=== PATIENT | male | born 1955 | race Caucasian/White ===

== ENCOUNTER 2023-06-29 09:55 | Inpatient (IN) | payer MEDICARE, SELFPAY ==
--- NOTE | ~2023-06-29 | MR_ITS ---
EXAMINATION: MR cervical spine wo/w con DATE: 07/02/2023 08:21 INDICATION: Neck pain with movement. TECHNIQUE: Magnetic resonance imaging (MRI) of the cervical spine was performed without and with 19 m L MultiHance intravenous contrast. COMPARISON: None FINDINGS: There is 3 mm anterolisthesis of C3 on C4 and C4 on C5 and 2 mm anterolisthesis of C7 on T1 . There is a chronic compression fracture of T1 with 1/5 loss of height. There is an effusion of left C1-C2 facet joint. There is edema-like signal intensity and enhancement around the joint and involvi ng the C2 vertebral body. There is mildly decreased disc height at C2-C3, severely decreased disc hei ght at C3-C4, moderately decreased disc height at C5-C6 and C6-C7, and mildly decreased disc height a t C7-T1. The spinal cord signal intensity is normal. The following disc levels are specifically discu ssed: C2-C3: There is a central extrusion. There is mild bilateral uncovertebral joint osteoarthritis. Ther e is severe bilateral facet joint osteoarthritis. There is mild left neural foraminal stenosis. There is mild central canal stenosis. C3-C4: The disc does not extend beyond the endplate margin. There is severe bilateral uncovertebral j oint osteoarthritis. There is moderate bilateral facet joint osteoarthritis. There is moderate right and mild left neural foraminal stenosis. There is mild central canal stenosis. C4-C5: The disc does not extend beyond the endplate margin. There is mild bilateral uncovertebral suad nt osteoarthritis. There is moderate right and severe left facet joint osteoarthritis. There is mild right and moderate left neural foraminal stenosis. There is mild central canal stenosis. C5-C6: The disc is bulging. There is severe bilateral uncovertebral joint osteoarthritis. There is mi ld bilateral facet joint osteoarthritis. There is severe right and mild left neural foraminal stenosi s. There is mild central canal stenosis. C6-C7: The disc is bulging. There is severe bilateral uncovertebral joint osteoarthritis. There is mi ld bilateral facet joint osteoarthritis. There is mild right and moderate left neural foraminal steno sis. There is mild central canal stenosis. C7-T1: There is a central extrusion. There is mild left uncovertebral joint osteoarthritis. There is moderate right and severe left facet joint osteoarthritis. There is mild left neural foraminal stenos is. There is no central canal stenosis. IMPRESSION: 1. Effusion of left C1-C2 facet joint with abnormal bone marrow signal intensity and enhancement. The se findings are most likely secondary to osteoarthritis. Noncontrast cervical spine CT is recommended to exclude fracture or infection. Reviewed, dictated and finalized at location A. IMPRESSION: 1. Effusion of left C1-C2 facet joint with abnormal bone marrow signal intensit y and enhancement. These findings are most likely secondary to osteoarthritis. Noncontrast cervical spine CT is recommended to exclude fracture or infection.
--- NOTE | ~2023-06-29 | XR_ITS ---
EXAMINATION: XR foot RT min 3V DATE: 06/29/2023 11:43 INDICATION: Right foot pain and swelling TECHNIQUE: Dorsoplantar, lateral, and 2 oblique views of the right foot were obtained. COMPARISON: None. FINDINGS: There is lateral soft tissue swelling of the foot. Soft tissue gas is seen near the base of the fifth metatarsal. There appears to be mild osteopenia in the base of the fifth metatarsal. There is at least moderate osteoarthritis in the midfoot and multiple interphalangeal joints. There appear s to be chronic subluxation at the second proximal interphalangeal joint. Posterior and plantar calca annalee enthesophytes are noted. IMPRESSION: 1. Lateral soft tissue swelling the foot and soft tissue gas near the base of the fifth metatarsal. U nderlying osteopenia of the fifth metatarsal base could reflect osteomyelitis. Reviewed, dictated and finalized at location A. IMPRESSION: 1. Lateral soft tissue swelling the foot and soft tissue gas near the base of t he fifth metatarsal. Underlying osteopenia of the fifth metatarsal base could r eflect osteomyelitis.
--- NOTE | ~2023-06-29 | CT_ITS ---
CT of the Abdomen and Pelvis: Indication: Urinary bladder neoplasm Technique: 2.5 mm axial scans were obtained through the abdomen and pelvis prior to and following in travenous administration of 130 cc of Omnipaque 350. Dose reduction technique was used on this scan b y utilizing automated exposure control and iterative reconstruction technique. The dose-length produc t (DLP) was 2837.99 mGy-cm. Findings: Scans through the lung bases are unremarkable. The liver, spleen, pancreas, adrenals and kidneys are within normal limits. Cholecystectomy clips are present. No evidence of aortic aneurysm. No lymphadenopathy. No bowel obstruction or bowel wall thickening. There is no evidence to suggest acute appendicitis. Images through the pelvis were performed. Urinary bladder is unremarkable in appearance. No pelvic ma ss seen. No ascites. Impression: No evidence for urinary bladder neoplasm. No significant abnormality seen. Reviewed, dictated and finalized at [facility]. Impression: No evidence for urinary bladder neoplasm. No significant abnormality seen.
--- NOTE | ~2023-06-29 | CT_ITS ---
EXAMINATION: CT foot RT wo con DATE: 07/01/2023 15:16 INDICATION: Right hindfoot varus. TECHNIQUE: Computed tomography (CT) of the right foot was performed without intravenous contrast. Aut omated exposure control and iterative reconstruction technique were employed. The dose-length product was 475.34 mGy-cm. COMPARISON: Right foot radiographs 06/29/2023, MRI 06/30/2023 FINDINGS: Hindfoot varus is noted. There is dorsiflexion of the metatarsophalangeal joints and flexio n of the interphalangeal joints. There is an old healed fracture of neck of fifth metatarsal. There i s dorsal dislocation of fifth proximal phalanx with respect to the metatarsal with pseudoarthrosis. T here is severe osteoarthritis of the ankle joint, subtalar joint, talonavicular joint, and fifth tars ometatarsal joint. There is mild to moderate osteoarthritis of many other joints. There is an ulcer o verlying base of fifth metatarsal. There is mature periosteal reaction of base of fifth metatarsal wi thout bone marrow edema on the recent MRI to suggest acute osteomyelitis. IMPRESSION: 1. Hindfoot varus. 2. Particular osteoarthritis. 3. Dorsal dislocation of fifth proximal phalanx with respect to the metatarsal with pseudoarthrosis. Reviewed, dictated and finalized at location A.
--- NOTE | ~2023-06-29 | MR_ITS ---
MRI of the right foot CLINICAL HISTORY: Pain, osteomyelitis TECHNIQUE: Axial T1-weighted, T2 fat-sat, and T1 fat-sat images, sagittal T1-weighted and STIR images , and coronal T1-weighted and T2 fat-sat images were acquired. FINDINGS: Exam degraded by motion artifact. Bone marrow signals appear unremarkable. No evidence for osteitis. No fracture or bone marrow edema seen. No significant joint effusion identified. There are probable mild degenerative changes at the metatarsophalangeal joints and TMT joints. Plantar fascia appears intact. There is nonspecific edematous change of the plantar musculature of th e foot. No focal fluid collection seen. There is dorsal subcutaneous soft tissue edema of the foot. IMPRESSION: No evidence for osteomyelitis or abscess. Nonspecific dorsal subcutaneous soft tissue edema as well as myositis of the plantar musculature of t he foot. Reviewed, dictated and finalized at [facility]. IMPRESSION: No evidence for osteomyelitis or abscess. Nonspecific dorsal subcutaneous soft tissue edema as well as myositis of the pl nikki musculature of the foot.
[2023-06-29 10:16] VITALS: BP 110/74; PULSE 101; RESP 16; TEMP 36.6; O2SAT 96
--- NOTE | 2023-06-29 10:22 | ECG_ITS ---
Measurements Intervals [place] Rate: 100 P: 17 NE: 144 QRS: -18 QRSD: 85 T: 13 QT: 360 QTc: 465 Interpretive Statements SINUS TACHYCARDIA ATRIAL PREMATURE COMPLEX DELAYED PRECORDIAL R/S TRANSITION VOLTAGE CRITERIA FOR LVH BORDERLINE T WAVE ABNORMALITY- INFEIOR LEADS BASELINE ARTIFACT- I, III, AVL, AVF BORDERLINE ECG NO PREVIOUS ECG AVAILABLE FOR COMPARISON Electronically Signed On 06-29-2023 15:52:18 CDT by Silviano Peguero D.O.
--- NOTE | 2023-06-29 11:57 | ED.WOUNDLAC ---
HPI - Wound/Laceration General Chief Complaint: Wound/Laceration Stated Complaint: ulcer on right foot Time Seen by Provider: 06/29/23 11:56 History of Present Illness HPI narrative: Patient is a 67-year-old male with history of rheumatoid arthritis, on Rinvoq, CHF here with wound on right foot. Patient notes that about a week and half to 2 weeks ago he started noticing a wound on the right lateral aspect of his right foot. patient has been using a topical agents at home without improvement of symptoms. 2 days ago patient noticed some drainage from the wound. Patient did go and see his primary care doctor about this wound they advised to come into the emergency department for possible IV antibiotic need. Patient denies fever or chills. Does note some pain in the area. Uses multiple person assist at home to get around, has declined placement in a skilled nursing care facility in the past. Related Data Home Medications Medication Instructions Recorded Confirmed acetaminophen 325 mg tablet 650 mg PO Q4H PRN Mild Pain (Scale 06/29/23 06/29/23 (Tylenol) Score 1-4) aspirin 81 mg capsule,delayed 81 mg PO DAILY 06/29/23 06/29/23 release atorvastatin 20 mg tablet 20 mg PO HS 06/29/23 06/29/23 bupropion HCl 150 mg 24 hr tablet, 150 mg PO DAILY 06/29/23 06/29/23 extended release cetirizine 10 mg tablet 10 mg PO DAILY 06/29/23 06/29/23 citalopram 40 mg tablet 40 mg PO Q12H 06/29/23 06/29/23 ergocalciferol (vitamin D2) 25,000 50,000 unit PO WEEKLY 06/29/23 06/29/23 unit capsule fludrocortisone 0.1 mg tablet 0.2 mg PO DAILY 06/29/23 06/29/23 fluticasone fur. 100 mcg-umeclid 1 inh inhalation DAILY 06/29/23 06/29/23 62.5 mcg-vilant 25 mcg inhalat.powder (Trelegy Ellipta) folic acid 1 mg tablet 1 mg PO DAILY 06/29/23 06/29/23 furosemide 40 mg tablet 20 mg PO DAILY 06/29/23 06/29/23 hydrocortisone 5 mg tablet 5 mg PO BID 06/29/23 06/29/23 levothyroxine 175 mcg tablet 175 mcg PO DAILY 06/29/23 06/29/23 lifitegrast 5 % eye drops in a 1 drp EACH EYE BID 06/29/23 06/29/23 dropperette melatonin 5 mg tablet 5 mg PO HS 06/29/23 06/29/23 niacin 1,000 mg tablet,extended 1,000 mg PO HS 06/29/23 06/29/23 release 24 hr oxycodone-acetaminophen 5 mg-325 1 tablet PO Q6H PRN Pain 06/29/23 06/29/23 mg tablet pantoprazole 40 mg tablet,delayed 40 mg PO BID 06/29/23 06/29/23 release potassium chloride 20 mEq 20 meq PO DAILY 06/29/23 06/29/23 tablet,extended release prednisolone acetate 1 % eye 1 drp EACH EYE BID 06/29/23 06/29/23 drops,suspension pregabalin 100 mg capsule 100 mg PO TID 06/29/23 06/29/23 rivaroxaban 20 mg tablet (Xarelto) 20 mg PO 1700 06/29/23 06/29/23 sennosides 8.6 mg-docusate sodium 2 tablet PO Q12H 06/29/23 06/29/23 50 mg tablet tamsulosin 0.4 mg capsule 0.4 mg PO HS 06/29/23 06/29/23 tizanidine 4 mg tablet 4 mg PO BID 06/29/23 06/29/23 upadacitinib 15 mg tablet,extended 15 mg PO DAILY 06/29/23 06/29/23 release 24 hr (Rinvoq) Allergies Allergy/AdvReac Type Severity Reaction Status Date / Time No Known Allergies Allergy Verified 06/29/23 14:21 Review of Systems Review of Systems: CONSTITUTIONAL: Denies fever, chills, or sweats. CARDIOVASCULAR: Denies chest pain RESPIRATORY: Denies cough or dyspnea. GASTROINTESTINAL: Denies abdominal pain, nausea, vomiting SKIN: Denies rash or itching. Wound on right foot. MUSCULOSKELETAL: Denies back pain, joint pain, or myalgia. Right foot pain NEUROLOGIC: Denies headache, numbness, or weakness. PSYCHIATRIC: Denies anxiety or depression. [facility] Past Medical History Medical History (Updated 06/29/23 @ 18:53 by Gerri Hough APRN) CHF (congestive heart failure) CKD (chronic kidney disease) COPD (chronic obstructive pulmonary disease) DVT (deep venous thrombosis) LLE Hypothyroidism Rheumatoid arthritis Right club foot Family History Family History (Updated 06/29/23 @ 16:48 by Maria Eugenia Matthews RN) Mother High cholesterol Hypertension S
[2023-06-29 12:12] LABS: Basophils Percent Auto 0.4 % (0.2-1.2); Eosinophils Absolute Auto 0.1 K/mm3 (0-0.3); Eosinophils Percent Auto 1.6 % (0-4.4); Hematocrit 38.6 % (42.0-52.0); Hemoglobin 11.9 g/dL (14.0-18.0); Immature Granulocyte Absolute 0.03 K/mm3 (0.00-0.031); Immature Granulocyte Percent A 0.4 % (0-0.5); Lymphocytes Absolute Auto 2.36 K/mm3 (0.9-3.2); Lymphocytes Percent Auto 32.1 % (18.3-44.2); Mean Corpuscular HGB Conc 30.8 g/dl (32-36); Mean Corpuscular Hemoglobin 30.1 pg (26-34); Mean Corpuscular Volume 97.5 fl (80-100); Monocytes Absolute Auto 0.8 K/mm3 (0.1-0.6); Monocytes Percent Auto 10.6 % (2.6-8.5); Neutrophils Percent Auto 54.9 % (45.5-73.1); Platelet Count Result 319 k/mm3 (150-375); Red Blood Count 3.96 M/mm3 (4.6-6.20); Red Cell Distribution Width 19.7 % (11.5-14.5); White Blood Count 7.4 K/mm3 (4.5-10.0)
[2023-06-29 12:22] LABS: Alanine Aminotransferase 27 U/L (6-50); Albumin Level 3.7 g/dL (3.5-5.1); Alkaline Phosphatase 134 U/L (38-126); Anion Gap 3 mmol/L (8-16); Aspartate Amino Transferase 37 U/L (17-59); Bilirubin,Total 0.6 mg/dL (0.2-1.3); Blood Urea Nitrogen 15 mg/dL (9-20); Calcium 9.1 mg/dL (8.4-10.2); Carbon Dioxide 34 mmol/L (22-30); Chloride 99 mmol/L (98-107); Estimated CRCL calculation 71 ml/min; Estimated Glomerular Filt Rate > 60; Glucose 94 mg/dL (65-110); Potassium 3.6 mmol/L (3.4-5.0); Sodium 136 mmol/L (137-145)
[2023-06-29 13:02] LABS: CRP 1.2 mg/dL (<1.0)
[2023-06-29 13:46] LABS: Erythrocyte Sedimentation Rate 49 mm/hr (0-20)
[2023-06-29] MEDS: cefTRIAXone 2 GM/NS 100 ML 2 GM/100 ML BAG IVPB (14:23)
[2023-06-29 14:54] LABS: NT Pro B Type Natriuretic Pept 217 pg/mL (19.9-100)
[2023-06-29] MEDS: VANCOMYCIN 1,250 MG/NS 250 ML 1,250 MG/250 ML BAG 166.67 MG IVPB (15:06)
[2023-06-29 15:57] VITALS: BP 110/81; PULSE 95; RESP 18; O2SAT 100
--- NOTE | 2023-06-29 16:03 | PM.IMHP ---
H&P: HPI History of Present Illness Date/Time: 06/29/23 16:03 Chief Complaint: Wound, R Foot Narrative: 67 y/o M with history of rheumatoid arthritis, CKD Stage 3, CHF, COPD, hypothyroidism, GI bleed, and DVT of LLE w/anti-coagulation. Patient presents here with small wound to R lateral forefoot. Patient reports purulent discharge from wound, erythema, swelling, and pain. 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 Unable to wear brace due to the swelling. Wound began developing around 06/18 while patient was being treated at [facility] for rehabilitation post-admission for a GI bleed. Discharged from [facility] on 06/22. Patient has been dressing wound with band-aid at home. Sought care with PCP who recommended eval/tx in ED. Patient denies fever, chills, nausea, vomiting or diarrhea. Most recent BM yesterday, normal color, and +constipation. Family at bedside also reported a recent abnormal bladder scan c/f neoplasm as well as abnormal imaging of patient's C1/C2. Since discharge home, patient has been experiencing urge incontinence. Patient also continues to have pain to his left lateral neck with head turn to the left. Review of Systems Review of Systems: All systems reviewed & are unremarkable except as noted in HPI and below PMFSH Past Medical History Medical History (Updated 06/29/23 @ 18:53 by Gerri Hough APRN) CHF (congestive heart failure) CKD (chronic kidney disease) COPD (chronic obstructive pulmonary disease) DVT (deep venous thrombosis) LLE Hypothyroidism Rheumatoid arthritis Right club foot Family History Family History (Updated 06/29/23 @ 16:48 by Maria Eugenia Matthews RN) Mother High cholesterol Hypertension Sibling High cholesterol Social History Social History Smoking packs per day: 1.5 Smoking cigarettes per day: 30.0 Smoking status: Former smoker Smoking end date: 01/26/22 Alcohol intake: never Substance use: never Lack of Transportation: No Lack of Food: Never True Current Housing: I Have Housing Concerned About Future Housing: No Difficulty Paying Gas/Electric Bills: No Difficulty Paying for Meds: No Currently Unemployed: No Education: High School Diploma/GED Difficulty w/ Childcare or Family Care: No Spiritual care concerns: No Meds Home Medications and Allergies Home Medications Medication Instructions Recorded Confirmed Type acetaminophen 325 mg tablet 650 mg PO Q4H PRN Mild Pain (Scale 06/29/23 06/29/23 History (Tylenol) Score 1-4) aspirin 81 mg capsule,delayed 81 mg PO DAILY 06/29/23 06/29/23 History release atorvastatin 20 mg tablet 20 mg PO HS 06/29/23 06/29/23 History bupropion HCl 150 mg 24 hr tablet, 150 mg PO DAILY 06/29/23 06/29/23 History extended release cetirizine 10 mg tablet 10 mg PO DAILY 06/29/23 06/29/23 History citalopram 40 mg tablet 40 mg PO Q12H 06/29/23 06/29/23 History ergocalciferol (vitamin D2) 25,000 50,000 unit PO WEEKLY 06/29/23 06/29/23 History unit capsule fludrocortisone 0.1 mg tablet 0.2 mg PO DAILY 06/29/23 06/29/23 History fluticasone fur. 100 mcg-umeclid 1 inh inhalation DAILY 06/29/23 06/29/23 History 62.5 mcg-vilant 25 mcg inhalat.powder (Trelegy Ellipta) folic acid 1 mg tablet 1 mg PO DAILY 06/29/23 06/29/23 History furosemide 40 mg tablet 20 mg PO DAILY 06/29/23 06/29/23 History hydrocortisone 5 mg tablet 5 mg PO BID 06/29/23 06/29/23 History levothyroxine 175 mcg tablet 175 mcg PO DAILY 06/29/23 06/29/23 History lifitegrast 5 % eye drops in a 1 drp EACH EYE BID 06/29/23 06/29/23 History dropperette melatonin 5 mg tablet 5 mg PO HS 06/29/23 06/29/23 History niacin 1,000 mg tablet,extended 1,000 mg PO HS 06/29/23 06/29/23 History release 24 hr oxycodone-acetaminophen 5 mg-325 1 tablet PO Q6H PRN Pain 06/29/23 06/29/23 History mg tablet pantoprazole 40 mg tablet,delayed 40 mg PO BID 06/29/23 06/29/23 History release potassium chloride 20
--- NOTE | 2023-06-29 16:14 | ADMGEN ---
This patient, Obie Greenwood, was admitted to 3 [facility] Surg Room 310-01. Patient/family oriented to hospital policies and general routines including ID bracelet, bed and alarms, visiting hours, pain management, procedures, bathroom and other care routines, personal items, smoking policy, room service/diet, and visiting hours. Information on how to activate the Rapid Response Team has been discussed. Patient/Family are encouraged to report perceived risks to care and to ask questions if they do not understand what they are told or what they should do.
[2023-06-29] MEDS: VANCOMYCIN 1,000 MG/NS 250 ML 1,000 MG/250 ML BAG 250 MG IVPB (16:50)
[2023-06-29 16:54] VITALS: BP 124/83; PULSE 87; RESP 16; TEMP 36.3; O2SAT 100
[2023-06-29] MEDS: PIPERACILLN/TAZ 3.375GM/NS50ML 3.375 GM/50 ML BAG IVPB (21:45)
[2023-06-29] MEDS: ATORVASTATIN 20 MG TABLET PO (21:45)
[2023-06-29] MEDS: CITALOPRAM HYDROBROMIDE 20 MG TABLET 40 MG PO (21:46)
[2023-06-29] MEDS: SENNA/DOCUSATE SODIUM TABLET 2 TAB PO (21:46)
[2023-06-29] MEDS: MELATONIN 5 MG TABLET PO (21:46)
[2023-06-29] MEDS: PANTOPRAZOLE 40 MG TABLET PO (21:46)
[2023-06-29] MEDS: TAMSULOSIN HCL 0.4 MG CAPSULE PO (21:46)
[2023-06-29] MEDS: NIACIN SA 500 MG TABLET 1000 MG PO (21:51)
[2023-06-29 22:00] VITALS: BP 114/71; PULSE 98; RESP 14; TEMP 36.5; O2SAT 92
[2023-06-30] MEDS: PIPERACILLN/TAZ 3.375GM/NS50ML 3.375 GM/50 ML BAG IVPB ×5 (00:05→23:37)
[2023-06-30 05:39] VITALS: BP 103/62; PULSE 96; RESP 13; TEMP 36.4; O2SAT 92
--- NOTE | 2023-06-30 07:43 | PM.IMPN ---
Progress Note: A&P Assessment and Plan (1) Wound of right foot: Code(s): S91.301A - Unspecified open wound, right foot, initial encounter Status: Acute Assessment and Plan: (2) Urge incontinence: Code(s): N39.41 - Urge incontinence Status: Acute (3) CHF (congestive heart failure): Code(s): I50.9 - Heart failure, unspecified Status: Acute (4) Anemia: Code(s): D64.9 - Anemia, unspecified Status: Acute (5) Osteomyelitis of right foot: Code(s): M86.9 - Osteomyelitis, unspecified Status: Acute Plan Osteomyelitis of right foot Wound of right foot: ? <1 cm wound to right lateral forefoot that developed around 06/18. X-Ray concerning for osteomyelitis. patient does not meet SIRS criteria, podiatry not available, unable to transfer to outside facility due to avilabilty of room. Dr. Levy graciously accepted to consult for possible procedures. -MRI of R foot -continue broad spectrum antibiotics Vancomycin 1,500 mg Q18H, troughs ordered, with Zosyn 3.375 G Q6H, consult pharmacist for dosing antibiotics -wound culture -monitor daily labs -ortho consult - Cam, no need of surgical treatment per orthopedic surgeon Urge incontinence: ?Code(s): N39.41 - Urge incontinence ?Status:?Acute ?Assessment and Plan: New urge incontinence for the last week. History of BPH, on tamsulosin. Reported abnormal bladder scan concerning for neoplasm. -continue BPH medications Follow-up CT abdomen pelvis with contrast Follow-up urinalysis ?Heart failure, unspecified ?Status:?Acute ?Assessment and Plan: Bilateral peripheral edema, crackles in R lung base. Patient breathing comfortably, no increased SOB. -BNP 217 -continue furosemide, ASA -monitor I/O -monitor for changes in SOB, changes in physical exam Follow echocardiogram Anemia Likely secondary to chronic inflammation, patient has rheumatoid arthritis No obvious bleeding Follow-up CBC -Rheumatoid Arthritis: continue Rinvoq (home dose needed), pregabalin, hydrocortisone PO, Percocet, tizanidine, folic acid. -Hypothyroidism: continue Synthroid -COPD: no active wheezing or SOB. Continue home albuterol neb/rescue inhaler, Trelegy Ellipta. -HLD: continue atorvastatin, niacin -DVT: hold Xarelto for possible procedures/I&D -Allergies: continue cetirizine -Constipation: continue home senna plus -Depression: continue bupropion and citalopram. Denied SI/HI. -Adrenal Insufficiency: fludrocortisone 0.1 mg, prednisolone -Additional Home Meds: continue melatonin, potassium, vitamin D. No signs of exacerbation. home lubricant eye drop not available. Diet: Regular, NPO at midnight. DVT Prophylaxis: Hold Xarelto for procedures. SCDs ordered. GI Prophylaxis: continue home pantoprazole Code Status DNR Living Will in place JOSIE Greenwood (brother) [phone] Disposition: IV antibiotics, ortho consult, wound culture. Subjective Date/time seen: 06/30/23 07:43 Interval history: Patient is feeling better, patient is afebrile, blood pressure stable labs reviewed no new issue or events over the night Exam Narrative: GENERAL: Pleasant, in no acute distress. Well-nourished. - EYES: EOMI. Anicteric. - HENT: Moist mucous membranes. - LUNGS: Clear to auscultation bilaterally, no wheezing, rhonchi, or rales. - CARDIOVASCULAR: Regular rate and rhythm. No murmur. No JVD. - ABDOMEN: Soft, non-tender and non-distended. No palpable masses. - EXTREMITIES: No edema. Peripheral pulses 2+. Non-tender. - NEUROLOGIC: No focal neurological deficits. CN II-XII grossly intact. - PSYCHIATRIC: Awake, Alert and oriented x 3. Appropriate mood and affect. - SKIN: open wound to the right lateral foot, no active drainage. Erythema to anterior RLE with small healing wounds. - LYMPH: No cervical lymphadenopathy. Objective Data Vital Signs Vital Signs: Vital Signs - 24 hr 06/29/23 10:16
[2023-06-30 08:11] LABS: Basophils Percent Auto 0.4 % (0.2-1.2); Eosinophils Absolute Auto 0.2 K/mm3 (0-0.3); Eosinophils Percent Auto 2.3 % (0-4.4); Hematocrit 35.4 % (42.0-52.0); Immature Granulocyte Absolute 0.02 K/mm3 (0.00-0.031); Immature Granulocyte Percent A 0.3 % (0-0.5); Lymphocytes Absolute Auto 1.93 K/mm3 (0.9-3.2); Lymphocytes Percent Auto 24.6 % (18.3-44.2); Mean Corpuscular HGB Conc 31.1 g/dl (32-36); Mean Corpuscular Hemoglobin 30.5 pg (26-34); Mean Corpuscular Volume 98.1 fl (80-100); Mean Platelet Volume 9.7 fl (7.4-10.4); Monocytes Absolute Auto 0.8 K/mm3 (0.1-0.6); Monocytes Percent Auto 9.9 % (2.6-8.5); Neutrophils Absolute Auto 4.9 K/mm3 (1.3-6.7); Neutrophils Percent Auto 62.5 % (45.5-73.1); Platelet Count Result 297 k/mm3 (150-375); Red Blood Count 3.61 M/mm3 (4.6-6.20); Red Cell Distribution Width 19.7 % (11.5-14.5); White Blood Count 7.9 K/mm3 (4.5-10.0)
[2023-06-30 08:24] LABS: Anion Gap 7 mmol/L (8-16); Blood Urea Nitrogen 16 mg/dL (9-20); Calcium 8.9 mg/dL (8.4-10.2); Carbon Dioxide 29 mmol/L (22-30); Chloride 102 mmol/L (98-107); Estimated CRCL calculation 65 ml/min; Estimated Glomerular Filt Rate > 60; Glucose 77 mg/dL (65-110); Lactic Acid Reflex 1.3 mmol/L (0.7-2.0); Magnesium 2.1 mg/dL (1.6-2.3); Potassium 3.4 mmol/L (3.4-5.0); Sodium 138 mmol/L (137-145)
[2023-06-30] MEDS: FLUTICASONE/UMECLIDIN/VILANTER 100-62.5-25 MCG ELLIPTA 1 PUFF INHALATION (08:46)
[2023-06-30 08:48] VITALS: O2SAT 95
[2023-06-30 08:49] VITALS: RESP 18
[2023-06-30 09:16] LABS: Thyroid Stimulating Hormone Reflex < 0.015 uIU/mL (0.465-4.68)
[2023-06-30] MEDS: PREGABALIN (*CRX) 50 MG CAPSULE 100 MG PO ×3 (09:17→17:31)
[2023-06-30] MEDS: SENNA/DOCUSATE SODIUM TABLET 2 TAB PO ×2 (09:18→20:40)
[2023-06-30] MEDS: FLUDROCORTISONE ACETATE 0.1 MG TABLET 0.2 MG PO (09:18)
[2023-06-30] MEDS: LEVOTHYROXINE SODIUM 75 MCG TABLET PO (09:18)
[2023-06-30] MEDS: CITALOPRAM HYDROBROMIDE 20 MG TABLET 40 MG PO ×2 (09:18→20:40)
[2023-06-30] MEDS: FOLIC ACID 1 MG TABLET PO (09:18)
[2023-06-30] MEDS: buPROPion HCL XL (24 HR) 150 MG TABCR PO (09:18)
[2023-06-30] MEDS: HYDROCORTISONE 5 MG TABLET PO ×2 (09:18→17:31)
[2023-06-30] MEDS: ASPIRIN 81 MG ENTERIC TABLET PO (09:18)
[2023-06-30] MEDS: prednisoLONE ACETATE 1% OPHTH 5 ML 1 DROP EACH EYE ×2 (09:18→17:31)
[2023-06-30] MEDS: POTASSIUM CHLORIDE 20 MEQ ER TABLET PO (09:18)
[2023-06-30] MEDS: PANTOPRAZOLE 40 MG TABLET PO ×2 (09:19→20:40)
[2023-06-30] MEDS: LORATADINE 10 MG TABLET PO (09:19)
[2023-06-30] MEDS: TIZANIDINE HCL 4 MG TABLET PO ×2 (09:19→17:31)
[2023-06-30] MEDS: LEVOTHYROXINE SODIUM 100 MCG TABLET PO (09:19)
[2023-06-30] MEDS: FUROSEMIDE 20 MG TABLET PO (09:19)
--- NOTE | 2023-06-30 11:33 | PM.CNOR ---
Assessment and Plan Assessment and plan (1) Rheumatoid arthritis: Qualifiers: Rheumatoid arthritis location: multiple sites Rheumatoid factor presence: with rheumatoid factor Qualified Code(s): M05.79 - Rheumatoid arthritis with rheumatoid factor of multiple sites without organ or systems involvement Code(s): M06.9 - Rheumatoid arthritis, unspecified Status: Acute (2) Ulcer of right foot with muscle involvement without evidence of necrosis: Code(s): L97.515 - Non-pressure chronic ulcer of other part of right foot with muscle involvement without evidence of necrosis Status: Acute Assessment and Plan: 67-year-old gentleman admitted through the emergency room with peripheral neuropathy secondary to rheumatoid arthritis. 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 Small ulcer at the base of the 5th metatarsal. Start dressing changes, IV antibiotics. Plan for MRI today. At this time does not require surgical treatment but may develop into surgical candidate based on MRI and progress of wound with dressing changes. Pressure relief while in bed. Will follow. (3) Peripheral neuropathy: Qualifiers: Peripheral neuropathy type: polyneuropathy associated with underlying disease Qualified Code(s): G63 - Polyneuropathy in diseases classified elsewhere Code(s): G62.9 - Polyneuropathy, unspecified Status: Acute (4) Cavovarus deformity of foot, acquired: Qualifiers: Laterality: right Qualified Code(s): M21.6X1 - Other acquired deformities of right foot Code(s): M21.6X9 - Other acquired deformities of unspecified foot Status: Acute History of Present Illness HPI Consult date: 06/30/23 Requesting physician: Jennifer Perdomo MD Chief complaint: Foot Wound Infection Narrative: 67-year-old gentleman admitted through the emergency room with right foot ulcer. Patient with history of rheumatoid arthritis and neuropathy. Per history noted ulcer lateral border the right foot 1-2 weeks ago. Family had difficulty with care and brought him to the emergency room. Review of Systems Constitutional: Constitutional: Denies fever(s) Eyes: Eyes: Denies blurry vision ENT: Reports Normal hearing present Cardiovascular: Cardiovascular: Denies chest pain and Denies dyspnea Respiratory: Respiratory: Denies dyspnea and Denies wheezing Gastrointestinal: Gastrointestinal: Denies abdominal pain Genitourinary: Genitourinary: Denies urinary urgency Musculoskeletal: Musculoskeletal: Reports as per HPI and Denies numbness Integumentary/Breasts: Skin/Breast: Denies changing lesions and Denies sores Neurologic: Reports Normal hearing present, Denies behavioral changes, Denies confusion, Denies numbness and Denies convulsions Psychiatric: Psychiatric: Denies behavioral changes, Denies confusion and Denies hallucinations Endocrine: Endocrine: Denies heat intolerance Hematologic/Lymphatic: Hematologic/Lymphatic: Denies easy bleeding Allergic/Immunologic: Allergic/Immunologic: Denies wheezing [facility] Past Medical History Medical History (Updated 06/30/23 @ 11:38 by Yandel Levy MD) Cavovarus deformity of foot, acquired CHF (congestive heart failure) CKD (chronic kidney disease) COPD (chronic obstructive pulmonary disease) DVT (deep venous thrombosis) LLE Hypothyroidism Peripheral neuropathy Rheumatoid arthritis Right club foot Ulcer of right foot with muscle involvement without evidence of necrosis Family History Family History (Updated 06/29/23 @ 16:48 by Maria Eugenia Matthews RN) Mother High cholesterol Hypertension Sibling High cholesterol Social History Social History Smoking packs per day: 1.5 Smoking cigarettes per day: 30.0 Smoking status: Former smoker Smoking end date: 01/26/22 Alcohol intake: never Substance use: never Lack of Transportation: No
[2023-06-30 14:00] VITALS: BP 100/65; PULSE 69; RESP 14; TEMP 36.4; O2SAT 96
[2023-06-30 18:16] LABS: Appearance Urine Clear (Clear); Bilirubin Urine Negative (Negative); Blood Urine Negative (Negative); Color Urine Yellow (Yellow); Glucose Urine UA Negative (Negative); Ketones Urine Negative (Negative); Leukocyte Esterase Ur Negative LEU/UL (Negative); Nitrate Urine Negative (Negative); Protein Urine Negative (Negative); pH Urine 7.5 (5.0-9.0)
[2023-06-30 18:33] LABS: Specific Grav Ur 1.045 (1.001-1.035)
[2023-06-30 18:35] LABS: Add Urine Microscopic? NO
[2023-06-30] MEDS: ATORVASTATIN 20 MG TABLET PO (20:40)
[2023-06-30] MEDS: NIACIN SA 500 MG TABLET 1000 MG PO (20:40)
[2023-06-30] MEDS: TAMSULOSIN HCL 0.4 MG CAPSULE PO (20:40)
[2023-06-30] MEDS: MELATONIN 5 MG TABLET PO (20:40)
[2023-06-30 21:00] VITALS: BP 97/68; PULSE 64; RESP 16; TEMP 36.1; O2SAT 94
[2023-07-01 01:46] LABS: Estimated CRCL calculation 65 ml/min; Estimated Glomerular Filt Rate > 60
[2023-07-01 04:23] VITALS: BP 110/64; PULSE 91; RESP 16; TEMP 36.2; O2SAT 93
[2023-07-01] MEDS: PIPERACILLN/TAZ 3.375GM/NS50ML 3.375 GM/50 ML BAG IVPB ×3 (05:10→17:38)
[2023-07-01 07:09] LABS: Basophils Percent Auto 0.3 % (0.2-1.2); Eosinophils Absolute Auto 0.2 K/mm3 (0-0.3); Eosinophils Percent Auto 2.6 % (0-4.4); Hematocrit 32.3 % (42.0-52.0); Immature Granulocyte Absolute 0.02 K/mm3 (0.00-0.031); Immature Granulocyte Percent A 0.3 % (0-0.5); Lymphocytes Absolute Auto 1.65 K/mm3 (0.9-3.2); Lymphocytes Percent Auto 22.4 % (18.3-44.2); Mean Corpuscular Hemoglobin 30.1 pg (26-34); Mean Corpuscular Volume 97.3 fl (80-100); Mean Platelet Volume 10.5 fl (7.4-10.4); Monocytes Absolute Auto 0.9 K/mm3 (0.1-0.6); Monocytes Percent Auto 11.8 % (2.6-8.5); Neutrophils Absolute Auto 4.6 K/mm3 (1.3-6.7); Neutrophils Percent Auto 62.6 % (45.5-73.1); Platelet Count Result 260 k/mm3 (150-375); Red Blood Count 3.32 M/mm3 (4.6-6.20); Red Cell Distribution Width 19.7 % (11.5-14.5); White Blood Count 7.4 K/mm3 (4.5-10.0)
[2023-07-01 07:37] LABS: Anion Gap 7 mmol/L (8-16); Blood Urea Nitrogen 12 mg/dL (9-20); Calcium 8.3 mg/dL (8.4-10.2); Carbon Dioxide 28 mmol/L (22-30); Chloride 103 mmol/L (98-107); Estimated CRCL calculation 65 ml/min; Estimated Glomerular Filt Rate > 60; Glucose 46 mg/dL (65-110); Potassium 2.8 mmol/L (3.4-5.0); Sodium 138 mmol/L (137-145)
[2023-07-01 07:46] LABS: Glucose Point of Care 55 mg/dl (65-105)
--- NOTE | 2023-07-01 07:50 | ECHO_ITS ---
Patient Info Name: Obie Greenwood Age: 67 years : 1955 Gender: Male Ht: 68 in Wt: 203 lbs BSA: 2.13 m2 HR: 91 bpm BP: 110 / 64 mmHg Heart Rhythm: Sinus Rhythm Technical Quality: Fair Exam Date: 07/01/2023 11:46 AM Exam Location: [facility] Patient Status: Inpatient Admit Date: 06/30/2023 Staff Ordering Physician: Iraj Sanchez MD Drama Teacher: Lucille Zelaya RDCS Attending Provider: Iraj Sanchez MD Exam Type: CA echo dop color flow w con Study Info Indications - dizziness Complete two-dimensional, color flow and Doppler transthoracic echocardiogram is performed with contrast to opacify the left ventricle and to improve the deliniation of the left ventricle endocardial borders. Contrast/Agitated Saline Contrast/Ag. Saline: Definity Amount: 2.00 ml Administered By: Lucille Zelaya RDCS Existing IV Access: Yes IV Access Condition: patent with no signs of infiltration Summary 1. Left ventricular chamber dimension is normal. 2. Left ventricular systolic function is normal, estimated at 65-70%. 3. There is mildly increased left ventricular wall thickness. 4. Right ventricular systolic function is normal. 5. There is moderate aortic valve calcification. 6. There is mild to moderate aortic valve stenosis with a peak velocity of 224.52 cm/s, mean gradient of 11 mmHg, and aortic valve area of 1.33 cm2. 7. There is mild tricuspid valve regurgitation. 8. There is small anterior pericardial effusion. Left Ventricle Left ventricular chamber dimension is normal. Left ventricular systolic function is normal, estimated at 65-70%. There is mildly increased left ventricular wall thickness. Right Ventricle Right ventricular chamber dimension is mildly enlarged. Right ventricular systolic function is normal. Left Atria Left atrial chamber dimension is normal. Right Atria Right atrial chamber dimension is normal. Atrial Septum Intact interatrial septum visualized by color flow imaging. Aortic Valve The aortic valve is not well visualized. There is mild to moderate aortic valve stenosis with a peak velocity of 224.52 cm/s, mean gradient of 11 mmHg, and aortic valve area of 1.33 cm2. There is no aortic valve regurgitation. There is moderate aortic valve calcification. Pulmonic Valve The pulmonic valve is not well visualized. Mitral Valve There is trace mitral valve regurgitation. The mitral valve annulus is mildly calcified. Tricuspid Valve There is mild tricuspid valve regurgitation. Pericardium/Pleural There is small anterior pericardial effusion. Inferior Vena Cava Normal inferior vena cava with >50% collapse upon inspiration consistent with normal right atrial pressure, 3 mmHg. Aorta The aortic root size at the sinus of Valsalva is normal. Left Ventricular Outflow Tract Name Value Normal LVOT 2D LVOT Diameter 2.01 cm LVOT Doppler LVOT Peak Gradient 4 mmHg LVOT Mean Gradient 2 mmHg LVOT VTI 18.93 cm LVOT VTI/AV VTI Ratio 0.42 LVOT Stroke Volume 60.30 ml LVOT CO
--- NOTE | 2023-07-01 08:01 | PM.IMPN ---
Progress Note: A&P Assessment and Plan (1) Wound of right foot: Code(s): S91.301A - Unspecified open wound, right foot, initial encounter Status: Acute Assessment and Plan: (2) Urge incontinence: Code(s): N39.41 - Urge incontinence Status: Acute (3) CHF (congestive heart failure): Code(s): I50.9 - Heart failure, unspecified Status: Acute (4) Anemia: Code(s): D64.9 - Anemia, unspecified Status: Acute (5) Osteomyelitis of right foot: Code(s): M86.9 - Osteomyelitis, unspecified Status: Acute Plan Cellulitis and suspecting osteomyelitis of right foot Wound of right foot: ? <1 cm wound to right lateral forefoot that developed around 06/18. X-Ray concerning for osteomyelitis. patient does not meet SIRS criteria, podiatry not available, unable to transfer to outside facility due to avilabilty of room. MRI of foot report No evidence for osteomyelitis or abscess.Nonspecific dorsal subcutaneous soft tissue edema as well as myositis of the plantar musculature of the foot. continue broad spectrum antibiotics: vancomycin 1,500 mg Q18H, troughs ordered, with Zosyn 3.375 G Q6H, consult pharmacist for dosing antibiotics -wound culture pending -monitor daily labs -ortho consult - Gre[place], no need of surgical treatment per orthopedic surgeon Urge incontinence: ?Code(s): N39.41 - Urge incontinence ?Status:?Acute ?Assessment and Plan: New urge incontinence for the last week. History of BPH, on tamsulosin. Reported abnormal bladder scan concerning for neoplasm. -continue BPH medications Follow-up CT abdomen pelvis with contrast: No evidence for urinary bladder neoplasm. No significant abnormality seen. urinalysis unremarkable Cancel consultation request of urologist ?Heart failure, unspecified ?Status:?Acute ?Assessment and Plan: Bilateral peripheral edema, crackles in R lung base. Patient breathing comfortably, no increased SOB. -BNP 217 -continue furosemide, ASA -monitor I/O -monitor for changes in SOB, changes in physical exam Follow echocardiogram Anemia Likely secondary to chronic inflammation, patient has rheumatoid arthritis No obvious bleeding Follow-up CBC Hypokalemia 2.8 potassium level Replete with potassium chloride 40 mEq p.o. and 20 mEq IV Follow-up BMP -Rheumatoid Arthritis: continue Rinvoq (home dose needed), pregabalin, hydrocortisone PO, Percocet, tizanidine, folic acid. -Hypothyroidism: continue Synthroid -COPD: no active wheezing or SOB. Continue home albuterol neb/rescue inhaler, Trelegy Ellipta. -HLD: continue atorvastatin, niacin -DVT: hold Xarelto for possible procedures/I&D -Allergies: continue cetirizine -Constipation: continue home senna plus -Depression: continue bupropion and citalopram. Denied SI/HI. -Adrenal Insufficiency: fludrocortisone 0.1 mg, prednisolone -Additional Home Meds: continue melatonin, potassium, vitamin D. No signs of exacerbation. home lubricant eye drop not available. Neck pain Patient has some neck pain with movement. No focal motor deficit or abnormal sensation Patient states that should remember with tumor was identified on CT scan of his cervical spine Order MRI of cervical spine with contrast for evaluation Diet: Regular, NPO at midnight. DVT Prophylaxis: Hold Xarelto for procedures. SCDs ordered. GI Prophylaxis: continue home pantoprazole Code Status DNR Living Will in place JOSIE Greenwood (brother) [phone] Disposition: IV antibiotics, ortho consult, wound culture. Subjective Date/time seen: 07/01/23 08:01 Interval history: Patient is feeling better, patient is afebrile, blood pressure stable labs reviewed, patient complains some neck pain, worse with movement, no new focal deficit Exam Narrative: GENERAL: Pleasant, in no acute distress. Well-nourished. - EYES: EOMI. Anicteric. - HENT: Moist mucous membranes. No tenderness of cer
[2023-07-01] MEDS: SENNA/DOCUSATE SODIUM TABLET 2 TAB PO ×2 (08:16→22:30)
[2023-07-01] MEDS: POTASSIUM CHLORIDE 20 MEQ PACKET (FOR LIQUID) 40 MEQ PO (08:16)
[2023-07-01] MEDS: prednisoLONE ACETATE 1% OPHTH 5 ML 1 DROP EACH EYE ×2 (08:16→17:39)
[2023-07-01] MEDS: FLUDROCORTISONE ACETATE 0.1 MG TABLET 0.2 MG PO (08:17)
[2023-07-01] MEDS: FUROSEMIDE 20 MG TABLET PO (08:17)
[2023-07-01] MEDS: buPROPion HCL XL (24 HR) 150 MG TABCR PO (08:17)
[2023-07-01] MEDS: PANTOPRAZOLE 40 MG TABLET PO ×2 (08:17→22:31)
[2023-07-01] MEDS: ASPIRIN 81 MG ENTERIC TABLET PO (08:17)
[2023-07-01] MEDS: LORATADINE 10 MG TABLET PO (08:17)
[2023-07-01] MEDS: FOLIC ACID 1 MG TABLET PO (08:17)
[2023-07-01] MEDS: PREGABALIN (*CRX) 50 MG CAPSULE 100 MG PO ×3 (08:17→17:39)
[2023-07-01] MEDS: TIZANIDINE HCL 4 MG TABLET PO ×2 (08:17→17:39)
[2023-07-01] MEDS: HYDROCORTISONE 5 MG TABLET PO ×2 (08:17→17:39)
[2023-07-01] MEDS: CITALOPRAM HYDROBROMIDE 20 MG TABLET 40 MG PO ×2 (08:17→22:30)
[2023-07-01] MEDS: LEVOTHYROXINE SODIUM 100 MCG TABLET PO (08:17)
[2023-07-01] MEDS: LEVOTHYROXINE SODIUM 75 MCG TABLET PO (08:18)
[2023-07-01] MEDS: KCL 20 MEQ/SW 100 ML 100 ML 50 MEQ IVPB (09:18)
[2023-07-01 09:34] LABS: Glucose Point of Care 128 mg/dl (65-105)
[2023-07-01] MEDS: FLUTICASONE/UMECLIDIN/VILANTER 100-62.5-25 MCG ELLIPTA 1 PUFF INHALATION (09:40)
--- NOTE | 2023-07-01 11:33 | PM.PNORT ---
Progress Note: A&P Assessment and Plan (1) Ulcer of right foot with muscle involvement without evidence of necrosis: Code(s): L97.515 - Non-pressure chronic ulcer of other part of right foot with muscle involvement without evidence of necrosis Status: Acute Assessment and Plan: MRI shows no bone involvement. Continue with silver gel and dressing changes. Wound care assessment tomorrow for possible further intervention. Continue IV antibiotics. (2) Cavovarus deformity of foot, acquired: Qualifiers: Laterality: right Qualified Code(s): M21.6X1 - Other acquired deformities of right foot Code(s): M21.6X9 - Other acquired deformities of unspecified foot Status: Acute Assessment and Plan: Discussed with patient in depth. He has custom shoes and bracing but still has deformity and pressure with ulceration. He would like to consider surgical correction. Would need CT scan to evaluate bone alignment. Subjective Subjective Date/Time Seen: 07/01/23 11:33 Principal diagnosis: Right foot ulcer Interval history: patient more awake and alert today. Discussed previous problems with the right foot. Patient has custom shoes and brace. Still with severe deformity and pressure with ulcer. Review of Systems Constitutional: Constitutional: Denies fever(s) Eyes: Eyes: Denies blurry vision ENT: Reports Normal hearing present Cardiovascular: Cardiovascular: Denies chest pain and Denies dyspnea Respiratory: Respiratory: Denies dyspnea and Denies wheezing Gastrointestinal: Gastrointestinal: Denies abdominal pain Genitourinary: Genitourinary: Denies urinary urgency Musculoskeletal: Musculoskeletal: Reports as per HPI and Denies numbness Integumentary/Breasts: Skin/Breast: Denies changing lesions and Denies sores Neurologic: Reports Normal hearing present, Denies behavioral changes, Denies confusion, Denies numbness and Denies convulsions Psychiatric: Psychiatric: Denies behavioral changes, Denies confusion and Denies hallucinations Endocrine: Endocrine: Denies heat intolerance Hematologic/Lymphatic: Hematologic/Lymphatic: Denies easy bleeding Allergic/Immunologic: Allergic/Immunologic: Denies wheezing Exam HENMT: Head: normal to inspection, normocephalic and atraumatic Eyes: Conjunctivae: conjunctivae normal Sclera: sclerae normal Neck: Neck: supple and nontender Resp: Effort & Inspection: normal respiratory effort and no audible wheezes Cardio: Rhythm: regular rhythm Extrem: Right upper extremity: normal to inspection Left upper extremity: normal to inspection Right lower extremity: ankle Details: normal to inspection, abnormal ROM Details: with range as follows (ankle dorsiflexion -10 degrees, plantar flexion 40?, inversion 15?, eversion 15?) and other ( good stability all directions); no tenderness, no swelling and no ecchymosis and foot Details: abnormal to inspection, abnormal ROM of toe ( hallux MTP dorsiflexion 40, plantar flexion 20?), vascular exam Details: dorsalis pedis pulse present and normal capillary refill, tendon exam Details: active flexion abnormal and active extension abnormal, motor-sensory exam Details: two point discrimination abnormal Location: in all toes and light-touch abnormal Location: in all toes and other (Hallux metatarsophalangeal motion 20? dorsiflexion/10? plantar flexion) Left lower extremity: ankle Details: normal to inspection and abnormal ROM Details: with range as follows (ankle dorsiflexion -10 degrees, plantar flexion 40?, inversion 15?, eversion 15?); no tenderness and no swelling and foot Details: normal capillary refill, abnormal ROM of toe, vascular exam (2+DP pulse, good cap refill all toes), tendon exam active flexion abnormal of the great toe and active extension abnormal of the great toe and motor-sensory exam two point discrimination abnormal and light-touch abnormal in all toes; no tenderness and no crepitus Other: Cav
[2023-07-01] MEDS: PERFLUTREN LIPID MICROSPHERES 1.5 ML VIAL DILUTED TO 10 ML TOTAL VOLUME IV PUSH (12:45)
--- NOTE | 2023-07-01 13:39 | IVDEFINITY ---
Prior to administration of IV Definity the patient was educated on the risks and benefits of the imaging enhancing agent including potential adverse side effects. The patient verbalized understanding. Allergies were verified. No exclusion criteria were identified and at least one of the following inclusion criteria were met: 1) physician request, 2) patient technically difficult to image (per the [place] [employer] guidelines of two or more segments not discernable within the apical view), or 3) questionable left ventricular function. ?
[2023-07-01 14:00] VITALS: BP 120/63; PULSE 81; RESP 19; TEMP 36.2; O2SAT 97
[2023-07-01 20:25] VITALS: BP 93/51; PULSE 61; RESP 16; TEMP 36.2; O2SAT 98
[2023-07-01] MEDS: ATORVASTATIN 20 MG TABLET PO (22:29)
[2023-07-01] MEDS: NIACIN SA 500 MG TABLET 1000 MG PO (22:31)
[2023-07-01] MEDS: TAMSULOSIN HCL 0.4 MG CAPSULE PO (22:31)
[2023-07-01] MEDS: MELATONIN 5 MG TABLET PO (22:31)
[2023-07-02] MEDS: PIPERACILLN/TAZ 3.375GM/NS50ML 3.375 GM/50 ML BAG IVPB ×3 (00:26→13:32)
[2023-07-02 06:00] VITALS: BP 114/78; PULSE 75; RESP 16; TEMP 35.8; O2SAT 94
[2023-07-02 06:29] LABS: Basophils Percent Auto 0.3 % (0.2-1.2); Eosinophils Absolute Auto 0.1 K/mm3 (0-0.3); Eosinophils Percent Auto 2.2 % (0-4.4); Hematocrit 32.5 % (42.0-52.0); Immature Granulocyte Absolute 0.02 K/mm3 (0.00-0.031); Immature Granulocyte Percent A 0.3 % (0-0.5); Lymphocytes Percent Auto 26.2 % (18.3-44.2); Mean Corpuscular HGB Conc 30.8 g/dl (32-36); Mean Corpuscular Hemoglobin 30.2 pg (26-34); Mean Corpuscular Volume 98.2 fl (80-100); Mean Platelet Volume 10.2 fl (7.4-10.4); Monocytes Absolute Auto 0.8 K/mm3 (0.1-0.6); Monocytes Percent Auto 11.6 % (2.6-8.5); Neutrophils Absolute Auto 3.9 K/mm3 (1.3-6.7); Neutrophils Percent Auto 59.4 % (45.5-73.1); Platelet Count Result 254 k/mm3 (150-375); Red Blood Count 3.31 M/mm3 (4.6-6.20); Red Cell Distribution Width 19.6 % (11.5-14.5); White Blood Count 6.5 K/mm3 (4.5-10.0)
[2023-07-02 06:57] LABS: Anion Gap 7 mmol/L (8-16); Blood Urea Nitrogen 11 mg/dL (9-20); Calcium 8.1 mg/dL (8.4-10.2); Carbon Dioxide 25 mmol/L (22-30); Chloride 105 mmol/L (98-107); Estimated CRCL calculation 71 ml/min; Estimated Glomerular Filt Rate > 60; Glucose 77 mg/dL (65-110); Potassium 2.9 mmol/L (3.4-5.0); Sodium 137 mmol/L (137-145)
[2023-07-02 07:05] VITALS: PULSE 76; RESP 16; O2SAT 91
[2023-07-02] MEDS: FLUTICASONE/UMECLIDIN/VILANTER 100-62.5-25 MCG ELLIPTA 1 PUFF INHALATION (07:05)
--- NOTE | 2023-07-02 08:31 | PM.IMPN ---
Progress Note: A&P Assessment and Plan (1) Cavovarus deformity of foot, acquired: Qualifiers: Laterality: right Qualified Code(s): M21.6X1 - Other acquired deformities of right foot Code(s): M21.6X9 - Other acquired deformities of unspecified foot Status: Acute (2) Peripheral neuropathy: Qualifiers: Peripheral neuropathy type: polyneuropathy associated with underlying disease Qualified Code(s): G63 - Polyneuropathy in diseases classified elsewhere Code(s): G62.9 - Polyneuropathy, unspecified Status: Acute (3) Ulcer of right foot with muscle involvement without evidence of necrosis: Code(s): L97.515 - Non-pressure chronic ulcer of other part of right foot with muscle involvement without evidence of necrosis Status: Acute (4) Anemia: Code(s): D64.9 - Anemia, unspecified Status: Acute (5) Wound of right foot: Code(s): S91.301A - Unspecified open wound, right foot, initial encounter Status: Acute Assessment and Plan: (6) Urge incontinence: Code(s): N39.41 - Urge incontinence Status: Acute (7) CHF (congestive heart failure): Code(s): I50.9 - Heart failure, unspecified Status: Acute (8) Osteomyelitis of right foot: Code(s): M86.9 - Osteomyelitis, unspecified Status: Acute Plan Cellulitis and suspecting osteomyelitis of right foot Wound of right foot: ? <1 cm wound to right lateral forefoot that developed around 06/18. X-Ray concerning for osteomyelitis. patient does not meet SIRS criteria, podiatry not available, unable to transfer to outside facility due to avilabilty of room. MRI of foot report No evidence for osteomyelitis or abscess.Nonspecific dorsal subcutaneous soft tissue edema as well as myositis of the plantar musculature of the foot. continue broad spectrum antibiotics: vancomycin 1,500 mg Q18H, troughs ordered, with Zosyn 3.375 G Q6H, consult pharmacist for dosing antibiotics -wound culture pending -monitor daily labs -ortho consult - [place], no need of surgical treatment per orthopedic surgeon Right foot acquired deformity Patient consider surgical correction CT of right foot: 1. Hindfoot varus. 2. Particular osteoarthritis. 3. Dorsal dislocation of fifth proximal phalanx with respect to the metatarsal with pseudoarthrosis. Consult orthopedic surgeon for evaluation and treatment Urge incontinence: ?Code(s): N39.41 - Urge incontinence ?Status:?Acute ?Assessment and Plan: New urge incontinence for the last week. History of BPH, on tamsulosin. Reported abnormal bladder scan concerning for neoplasm. -continue BPH medications Follow-up CT abdomen pelvis with contrast: No evidence for urinary bladder neoplasm. No significant abnormality seen. urinalysis unremarkable Cancel consultation request of urologist ?Heart failure, unspecified ?Status:?Acute ?Assessment and Plan: Bilateral peripheral edema, crackles in R lung base. Patient breathing comfortably, no increased SOB. -BNP 217 -continue furosemide, ASA -monitor I/O -monitor for changes in SOB, changes in physical exam Follow echocardiogram Anemia Likely secondary to chronic inflammation, patient has rheumatoid arthritis No obvious bleeding Follow-up CBC Hypokalemia 2.8 potassium level Replete with potassium chloride 40 mEq p.o. and 20 mEq IV Follow-up BMP -Rheumatoid Arthritis: continue Rinvoq (home dose needed), pregabalin, hydrocortisone PO, Percocet, tizanidine, folic acid. -Hypothyroidism: continue Synthroid -COPD: no active wheezing or SOB. Continue home albuterol neb/rescue inhaler, Trelegy Ellipta. -HLD: continue atorvastatin, niacin -DVT: hold Xarelto for possible procedures/I&D -Allergies: continue cetirizine -Constipation: continue home senna plus -Depression: continue bupropion and citalopram. Denied SI/HI. -Adrenal Insufficiency: fludrocortisone 0.1 mg, prednisolone -Additio
[2023-07-02] MEDS: prednisoLONE ACETATE 1% OPHTH 5 ML 1 DROP EACH EYE ×2 (08:55→16:53)
[2023-07-02] MEDS: POTASSIUM CHLORIDE 20 MEQ ER TABLET PO (08:56)
[2023-07-02] MEDS: HYDROCORTISONE 5 MG TABLET PO ×2 (08:56→16:54)
[2023-07-02] MEDS: SENNA/DOCUSATE SODIUM TABLET 2 TAB PO ×2 (08:57→20:25)
[2023-07-02] MEDS: LEVOTHYROXINE SODIUM 100 MCG TABLET PO (08:57)
[2023-07-02] MEDS: PANTOPRAZOLE 40 MG TABLET PO ×2 (08:57→20:25)
[2023-07-02] MEDS: FLUDROCORTISONE ACETATE 0.1 MG TABLET 0.2 MG PO (08:57)
[2023-07-02] MEDS: CITALOPRAM HYDROBROMIDE 20 MG TABLET 40 MG PO ×2 (08:58→20:25)
[2023-07-02] MEDS: PREGABALIN (*CRX) 50 MG CAPSULE 100 MG PO ×3 (08:58→16:54)
[2023-07-02] MEDS: buPROPion HCL XL (24 HR) 150 MG TABCR PO (08:58)
[2023-07-02] MEDS: FUROSEMIDE 20 MG TABLET PO (08:58)
[2023-07-02] MEDS: ASPIRIN 81 MG ENTERIC TABLET PO (08:58)
[2023-07-02] MEDS: FOLIC ACID 1 MG TABLET PO (08:59)
[2023-07-02] MEDS: LORATADINE 10 MG TABLET PO (08:59)
[2023-07-02] MEDS: LEVOTHYROXINE SODIUM 75 MCG TABLET PO (08:59)
[2023-07-02] MEDS: TIZANIDINE HCL 4 MG TABLET PO ×2 (08:59→16:54)
[2023-07-02] MEDS: SILVERGEL (ELTA) 45 ML 1 APPLIC TOPICAL (09:57)
[2023-07-02 11:37] VITALS: BMI 31.0
[2023-07-02] MEDS: AMOXICILLIN/CLAVULANATE K 875-125 MG TAB 1 TABLET PO ×2 (13:39→20:25)
[2023-07-02 14:00] VITALS: BP 86/56; PULSE 68; RESP 16; TEMP 36.3; O2SAT 98
--- NOTE | 2023-07-02 14:21 | PM.PNORT ---
Progress Note: A&P Assessment and Plan (1) Ulcer of right foot with muscle involvement without evidence of necrosis: Code(s): L97.515 - Non-pressure chronic ulcer of other part of right foot with muscle involvement without evidence of necrosis Status: Acute Assessment and Plan: Appreciate wound care team. Continue with silver gel and daily dressing changes. Discharge when medically stable and cleared. (2) Cavovarus deformity of foot, acquired: Qualifiers: Laterality: right Qualified Code(s): M21.6X1 - Other acquired deformities of right foot Code(s): M21.6X9 - Other acquired deformities of unspecified foot Status: Acute Assessment and Plan: Discussed with patient And his family in depth. CT scan reviewed. discussed option for non operative treatment versus foot reconstruction versus amputation. Risks and benefits of each discussed in detail. Patient to consider. Subjective Subjective Date/Time Seen: 07/02/23 14:21 Principal diagnosis: Right foot ulcer Interval history: patient more awake and alert today. Discussed previous problems with the right foot. Patient has custom shoes and brace. Still with severe deformity and pressure with ulcer. Discussed with family. Exam Const: General: No confusion Orientation/consciousness: No confusion HENMT: Head: normal to inspection, normocephalic and atraumatic Eyes: Conjunctivae: conjunctivae normal Sclera: sclerae normal Neck: Neck: supple and nontender Resp: Effort & Inspection: normal respiratory effort and no audible wheezes Cardio: Rhythm: regular rhythm Neuro: General: No confusion Cranial nerves: Yes Normal hearing present Extrem: Right upper extremity: normal to inspection Left upper extremity: normal to inspection Right lower extremity: ankle Details: normal to inspection, abnormal ROM Details: with range as follows (ankle dorsiflexion -10 degrees, plantar flexion 40?, inversion 15?, eversion 15?) and other ( good stability all directions); no tenderness, no swelling and no ecchymosis and foot Details: abnormal to inspection, abnormal ROM of toe ( hallux MTP dorsiflexion 40, plantar flexion 20?), vascular exam Details: dorsalis pedis pulse present and normal capillary refill, tendon exam Details: active flexion abnormal and active extension abnormal, motor-sensory exam Details: two point discrimination abnormal Location: in all toes and light-touch abnormal Location: in all toes and other (Hallux metatarsophalangeal motion 20? dorsiflexion/10? plantar flexion) Left lower extremity: ankle Details: normal to inspection and abnormal ROM Details: with range as follows (ankle dorsiflexion -10 degrees, plantar flexion 40?, inversion 15?, eversion 15?); no tenderness and no swelling and foot Details: normal capillary refill, abnormal ROM of toe, vascular exam (2+DP pulse, good cap refill all toes), tendon exam active flexion abnormal of the great toe and active extension abnormal of the great toe and motor-sensory exam two point discrimination abnormal and light-touch abnormal in all toes; no tenderness and no crepitus Other: Cavovarus foot deformity right ankle and hindfoot. Erythema over the lateral malleolus consistent with pressure with no skin breakdown. Dime-sized ulcer base of the 5th metatarsal. Close to bone but no exposed bone, unable to probe bone or tendon. No drainage. Mild surrounding erythema. Psych: Affect: normal affect Objective Data Vital Signs Vital Signs: Vital Signs - 24 hr 07/01/23 20:25 07/01/23 20:00 07/02/23 06:00 Temperature 97.1 F L 96.5 F L Pulse Rate 61 75 Respiratory Rate 16 16 Blood Pressure 93/51 L 114/78 Pulse Oximetry 98 94 Oxygen Delivery Room Air 07/02/23 07:05 07/02/23 07:05 Temperature Pulse Rate 76 76 Respiratory Rate 16 16 Blood Pressure Pulse Oximetry 91 Oxygen Delivery Room Air Intake/Output Intake/Output: Intake & Output 09
[2023-07-02] MEDS: SODIUM CHLORIDE 0.9% IV 500 ML 999 ML IV CONT (15:09)
[2023-07-02 16:00] VITALS: BP 106/67
--- NOTE | 2023-07-02 16:34 | PHAR ---
HOME MED Upadacitinib [Rinvoq] 15 mg Tablet Extended Release 24 Hr TAKE 1 TABLET DAILY VERIFIED
[2023-07-02] MEDS: NIACIN SA 500 MG TABLET 1000 MG PO (20:25)
[2023-07-02] MEDS: TAMSULOSIN HCL 0.4 MG CAPSULE PO (20:25)
[2023-07-02] MEDS: MELATONIN 5 MG TABLET PO (20:25)
[2023-07-02] MEDS: ATORVASTATIN 20 MG TABLET PO (20:25)
[2023-07-02 22:00] VITALS: BP 108/60; PULSE 65; RESP 18; TEMP 36.4; O2SAT 99
[2023-07-03 06:00] VITALS: BP 114/64; PULSE 77; RESP 18; TEMP 36.2; O2SAT 96
[2023-07-03 08:25] LABS: Vancomycin Trough 13.2 ug/mL (10.0-20.0)
[2023-07-03] MEDS: LEVOTHYROXINE SODIUM 100 MCG TABLET PO (09:35)
[2023-07-03] MEDS: AMOXICILLIN/CLAVULANATE K 875-125 MG TAB 1 TABLET PO ×2 (09:35→20:55)
[2023-07-03] MEDS: ASPIRIN 81 MG ENTERIC TABLET PO (09:35)
[2023-07-03] MEDS: FLUDROCORTISONE ACETATE 0.1 MG TABLET 0.2 MG PO (09:35)
[2023-07-03] MEDS: prednisoLONE ACETATE 1% OPHTH 5 ML 1 DROP EACH EYE ×2 (09:35→17:19)
[2023-07-03] MEDS: buPROPion HCL XL (24 HR) 150 MG TABCR PO (09:35)
[2023-07-03] MEDS: ERGOCALCIFEROL 50,000 UNITS CAPSULE 50000 UNITS PO (09:36)
[2023-07-03] MEDS: CITALOPRAM HYDROBROMIDE 20 MG TABLET 40 MG PO ×2 (09:36→20:55)
[2023-07-03] MEDS: PANTOPRAZOLE 40 MG TABLET PO ×2 (09:36→20:55)
[2023-07-03] MEDS: HYDROCORTISONE 5 MG TABLET PO ×2 (09:36→17:19)
[2023-07-03] MEDS: TIZANIDINE HCL 4 MG TABLET PO ×2 (09:36→17:19)
[2023-07-03] MEDS: POTASSIUM CHLORIDE 20 MEQ ER TABLET PO (09:36)
[2023-07-03] MEDS: LEVOTHYROXINE SODIUM 75 MCG TABLET PO (09:36)
[2023-07-03] MEDS: LORATADINE 10 MG TABLET PO (09:36)
[2023-07-03] MEDS: FOLIC ACID 1 MG TABLET PO (09:36)
[2023-07-03] MEDS: PREGABALIN (*CRX) 50 MG CAPSULE 100 MG PO ×3 (09:37→17:19)
[2023-07-03] MEDS: SILVERGEL (ELTA) 45 ML 1 APPLIC TOPICAL (09:39)
[2023-07-03] MEDS: FLUTICASONE/UMECLIDIN/VILANTER 100-62.5-25 MCG ELLIPTA 1 PUFF INHALATION (09:39)
[2023-07-03 09:40] VITALS: O2SAT 96
--- NOTE | 2023-07-03 11:27 | PM.IMPN ---
Progress Note: A&P Assessment and Plan (1) Cavovarus deformity of foot, acquired: Qualifiers: Laterality: right Qualified Code(s): M21.6X1 - Other acquired deformities of right foot Code(s): M21.6X9 - Other acquired deformities of unspecified foot Status: Acute (2) Peripheral neuropathy: Qualifiers: Peripheral neuropathy type: polyneuropathy associated with underlying disease Qualified Code(s): G63 - Polyneuropathy in diseases classified elsewhere Code(s): G62.9 - Polyneuropathy, unspecified Status: Acute (3) Ulcer of right foot with muscle involvement without evidence of necrosis: Code(s): L97.515 - Non-pressure chronic ulcer of other part of right foot with muscle involvement without evidence of necrosis Status: Acute (4) Anemia: Code(s): D64.9 - Anemia, unspecified Status: Acute (5) Wound of right foot: Code(s): S91.301A - Unspecified open wound, right foot, initial encounter Status: Acute Assessment and Plan: (6) Urge incontinence: Code(s): N39.41 - Urge incontinence Status: Acute (7) CHF (congestive heart failure): Code(s): I50.9 - Heart failure, unspecified Status: Acute (8) Osteomyelitis of right foot: Code(s): M86.9 - Osteomyelitis, unspecified Status: Acute Plan Cellulitis and suspecting osteomyelitis of right foot Continue antibiotics Right foot acquired deformity Patient consider surgical correction Per patient he is planning amputation Urge incontinence: ?Code(s): N39.41 - Urge incontinence ?Status:?Acute ?Assessment and Plan: Monitor ?Heart failure, unspecified Appears compensated Anemia Monitor Hypokalemia Monitor -Rheumatoid Arthritis: continue Rinvoq (home dose needed), pregabalin, hydrocortisone PO, Percocet, tizanidine, folic acid. -Hypothyroidism: continue Synthroid -COPD: no active wheezing or SOB. Continue home albuterol neb/rescue inhaler, Trelegy Ellipta. -HLD: continue atorvastatin, niacin -DVT: hold Xarelto for possible procedures/I&D -Allergies: continue cetirizine -Constipation: continue home senna plus -Depression: continue bupropion and citalopram. Denied SI/HI. -Adrenal Insufficiency: fludrocortisone 0.1 mg, prednisolone -Additional Home Meds: continue melatonin, potassium, vitamin D. No signs of exacerbation. home lubricant eye drop not available. Neck pain Monitor Subjective Date/time seen: 07/03/23 11:27 Interval history: No new complaints Exam Narrative: GENERAL: Pleasant, in no acute distress. Well-nourished. - EYES: EOMI. Anicteric. - HENT: Moist mucous membranes. No tenderness of cervical spine - LUNGS: Clear to auscultation bilaterally, no wheezing, rhonchi, or rales. - CARDIOVASCULAR: Regular rate and rhythm. No murmur. No JVD. - ABDOMEN: Soft, non-tender and non-distended. No palpable masses. - EXTREMITIES: No edema. Peripheral pulses 2+. Non-tender. Deformity of right ankle right foot - NEUROLOGIC: No focal neurological deficits. CN II-XII grossly intact. - PSYCHIATRIC: Awake, Alert and oriented x 3. Appropriate mood and affect. - SKIN: open wound to the right lateral foot, no active drainage. Erythema to anterior RLE with small healing wounds. - LYMPH: No cervical lymphadenopathy. Objective Data Vital Signs Vital Signs: Vital Signs - 24 hr 07/02/23 14:00 07/02/23 16:00 07/02/23 22:00 Temperature 97.4 F L 97.6 F Pulse Rate 68 65 Respiratory Rate 16 18 Blood Pressure 86/56 L 106/67 108/60 Pulse Oximetry 98 99 Oxygen Delivery 07/02/23 20:00 07/03/23 06:00 07/03/23 09:40 Temperature 97.1 F L Pulse Rate 77 Respiratory Rate 18 Blood Pressure 114/64 Pulse Oximetry 96 96 Oxygen Delivery Room Air Room Air Intake/Output Intake/Output: Intake & Output 06/30/23 07/01/23 07/02/23 07/03/23 23:59 23:59 23:59 23:59 Intake Total 1290 7698 1619
[2023-07-03 14:00] VITALS: BP 104/52; PULSE 71; RESP 18; TEMP 36.5; O2SAT 99
[2023-07-03] MEDS: ATORVASTATIN 20 MG TABLET PO (20:55)
[2023-07-03] MEDS: NIACIN SA 500 MG TABLET 1000 MG PO (20:55)
[2023-07-03] MEDS: TAMSULOSIN HCL 0.4 MG CAPSULE PO (20:56)
[2023-07-03] MEDS: MELATONIN 5 MG TABLET PO (20:56)
[2023-07-03] MEDS: SENNA/DOCUSATE SODIUM TABLET 2 TAB PO (20:56)
[2023-07-03 22:00] VITALS: BP 101/72; PULSE 58; RESP 20; TEMP 36.4; O2SAT 97
[2023-07-04 06:00] VITALS: BP 123/86; PULSE 72; RESP 22; TEMP 36.4; O2SAT 95
[2023-07-04 06:48] LABS: Estimated CRCL calculation 71 ml/min; Estimated Glomerular Filt Rate > 60
[2023-07-04 08:17] LABS: Potassium 3.1 mmol/L (3.4-5.0)
[2023-07-04] MEDS: prednisoLONE ACETATE 1% OPHTH 5 ML 1 DROP EACH EYE ×2 (08:29→16:18)
[2023-07-04] MEDS: AMOXICILLIN/CLAVULANATE K 875-125 MG TAB 1 TABLET PO ×2 (08:30→21:42)
[2023-07-04] MEDS: buPROPion HCL XL (24 HR) 150 MG TABCR PO (08:30)
[2023-07-04] MEDS: PREGABALIN (*CRX) 50 MG CAPSULE 100 MG PO ×3 (08:30→16:18)
[2023-07-04] MEDS: LEVOTHYROXINE SODIUM 100 MCG TABLET PO (08:30)
[2023-07-04] MEDS: CITALOPRAM HYDROBROMIDE 20 MG TABLET 40 MG PO ×2 (08:30→21:42)
[2023-07-04] MEDS: HYDROCORTISONE 5 MG TABLET PO ×2 (08:31→16:18)
[2023-07-04] MEDS: ASPIRIN 81 MG ENTERIC TABLET PO (08:31)
[2023-07-04] MEDS: LORATADINE 10 MG TABLET PO (08:31)
[2023-07-04] MEDS: FLUDROCORTISONE ACETATE 0.1 MG TABLET 0.2 MG PO (08:31)
[2023-07-04] MEDS: TIZANIDINE HCL 4 MG TABLET PO ×2 (08:31→16:18)
[2023-07-04] MEDS: POTASSIUM CHLORIDE 20 MEQ ER TABLET PO (08:32)
[2023-07-04] MEDS: SILVERGEL (ELTA) 45 ML 1 APPLIC TOPICAL (08:32)
[2023-07-04] MEDS: PANTOPRAZOLE 40 MG TABLET PO ×2 (08:32→21:42)
[2023-07-04] MEDS: LEVOTHYROXINE SODIUM 75 MCG TABLET PO (08:33)
[2023-07-04] MEDS: FOLIC ACID 1 MG TABLET PO (08:33)
[2023-07-04] MEDS: FLUTICASONE/UMECLIDIN/VILANTER 100-62.5-25 MCG ELLIPTA 1 PUFF INHALATION (08:46)
[2023-07-04 08:47] VITALS: O2SAT 92
--- NOTE | 2023-07-04 10:39 | PM.IMPN ---
Progress Note: A&P Assessment and Plan (1) Cavovarus deformity of foot, acquired: Qualifiers: Laterality: right Qualified Code(s): M21.6X1 - Other acquired deformities of right foot Code(s): M21.6X9 - Other acquired deformities of unspecified foot Status: Acute (2) Peripheral neuropathy: Qualifiers: Peripheral neuropathy type: polyneuropathy associated with underlying disease Qualified Code(s): G63 - Polyneuropathy in diseases classified elsewhere Code(s): G62.9 - Polyneuropathy, unspecified Status: Acute (3) Ulcer of right foot with muscle involvement without evidence of necrosis: Code(s): L97.515 - Non-pressure chronic ulcer of other part of right foot with muscle involvement without evidence of necrosis Status: Acute (4) Anemia: Code(s): D64.9 - Anemia, unspecified Status: Acute (5) Wound of right foot: Code(s): S91.301A - Unspecified open wound, right foot, initial encounter Status: Acute Assessment and Plan: (6) Urge incontinence: Code(s): N39.41 - Urge incontinence Status: Acute (7) CHF (congestive heart failure): Code(s): I50.9 - Heart failure, unspecified Status: Acute (8) Osteomyelitis of right foot: Code(s): M86.9 - Osteomyelitis, unspecified Status: Acute Plan Cellulitis and suspecting osteomyelitis of right foot Continue antibiotics Right foot acquired deformity Await surgical plan Per patient he is wanting amputation Urge incontinence: ?Code(s): N39.41 - Urge incontinence ?Status:?Acute ?Assessment and Plan: Monitor ?Heart failure, unspecified Appears compensated Anemia Monitor Hypokalemia Monitor -Rheumatoid Arthritis: continue Rinvoq (home dose needed), pregabalin, hydrocortisone PO, Percocet, tizanidine, folic acid. -Hypothyroidism: continue Synthroid -COPD: no active wheezing or SOB. Continue home albuterol neb/rescue inhaler, Trelegy Ellipta. -HLD: continue atorvastatin, niacin -DVT: hold Xarelto for possible procedures/I&D -Allergies: continue cetirizine -Constipation: continue home senna plus -Depression: continue bupropion and citalopram. Denied SI/HI. -Adrenal Insufficiency: fludrocortisone 0.1 mg, prednisolone -Additional Home Meds: continue melatonin, potassium, vitamin D. No signs of exacerbation. home lubricant eye drop not available. Neck pain Monitor Subjective Date/time seen: 07/04/23 10:39 Interval history: No new complaints Exam Narrative: GENERAL: Pleasant, in no acute distress. Well-nourished. - EYES: EOMI. Anicteric. - HENT: Moist mucous membranes. No tenderness of cervical spine - LUNGS: Clear to auscultation bilaterally, no wheezing, rhonchi, or rales. - CARDIOVASCULAR: Regular rate and rhythm. No murmur. No JVD. - ABDOMEN: Soft, non-tender and non-distended. No palpable masses. - EXTREMITIES: No edema. Peripheral pulses 2+. Non-tender. Deformity of right ankle right foot - NEUROLOGIC: No focal neurological deficits. CN II-XII grossly intact. - PSYCHIATRIC: Awake, Alert and oriented x 3. Appropriate mood and affect. - SKIN: open wound to the right lateral foot, no active drainage. Erythema to anterior RLE with small healing wounds. - LYMPH: No cervical lymphadenopathy. Objective Data Vital Signs Vital Signs: Vital Signs - 24 hr 07/03/23 14:00 07/03/23 22:00 07/04/23 06:00 Temperature 97.7 F 97.6 F 97.6 F Pulse Rate 71 58 L 72 Respiratory Rate 18 20 22 H Blood Pressure 104/52 L 101/72 123/86 Pulse Oximetry 99 97 95 Oxygen Delivery 07/04/23 08:47 Temperature Pulse Rate Respiratory Rate Blood Pressure Pulse Oximetry 92 Oxygen Delivery Room Air Intake/Output Intake/Output: Intake & Output 07/01/23 07/02/23 07/03/23 07/04/23 23:59 23:59 23:59 23:59 Intake Total 1860 2120 2202 268 Output Total 1125 1700 1950 850 Balance 735 420 047 -582 Meds/Re
[2023-07-04] MEDS: FUROSEMIDE 20 MG TABLET PO (10:43)
[2023-07-04] MEDS: POTASSIUM CHLORIDE 20 MEQ PACKET (FOR LIQUID) 40 MEQ PO (10:45)
[2023-07-04 14:00] VITALS: BP 93/56; PULSE 71; RESP 24; TEMP 36.5; O2SAT 99
--- NOTE | 2023-07-04 21:13 | PC.NURSE ---
This nurse reviewed charting completed by Yomaira Avalos (license pending) and agrees with all entries for 07-03-23/07-04-23.
[2023-07-04] MEDS: MELATONIN 5 MG TABLET PO (21:42)
[2023-07-04] MEDS: NIACIN SA 500 MG TABLET 1000 MG PO (21:42)
[2023-07-04] MEDS: ATORVASTATIN 20 MG TABLET PO (21:42)
[2023-07-04] MEDS: SENNA/DOCUSATE SODIUM TABLET 2 TAB PO (21:42)
[2023-07-04] MEDS: TAMSULOSIN HCL 0.4 MG CAPSULE PO (21:42)
[2023-07-04 21:59] VITALS: BP 99/51; PULSE 63; RESP 18; TEMP 36.3; O2SAT 96
[2023-07-05 05:22] VITALS: BP 147/87; PULSE 89; RESP 16; TEMP 36.7; O2SAT 92
[2023-07-05 06:23] LABS: Anion Gap 6 mmol/L (8-16); Blood Urea Nitrogen 10 mg/dL (9-20); Calcium 8.2 mg/dL (8.4-10.2); Carbon Dioxide 25 mmol/L (22-30); Chloride 106 mmol/L (98-107); Estimated CRCL calculation 78 ml/min; Estimated Glomerular Filt Rate > 60; Glucose 64 mg/dL (65-110); Potassium 3.7 mmol/L (3.4-5.0); Sodium 137 mmol/L (137-145)
[2023-07-05 07:00] VITALS: PULSE 100; RESP 18; O2SAT 92
[2023-07-05] MEDS: FLUTICASONE/UMECLIDIN/VILANTER 100-62.5-25 MCG ELLIPTA 1 PUFF INHALATION (07:01)
[2023-07-05] MEDS: buPROPion HCL XL (24 HR) 150 MG TABCR PO (09:25)
[2023-07-05] MEDS: TIZANIDINE HCL 4 MG TABLET PO (09:25)
[2023-07-05] MEDS: ASPIRIN 81 MG ENTERIC TABLET PO (09:25)
[2023-07-05] MEDS: CITALOPRAM HYDROBROMIDE 20 MG TABLET 40 MG PO (09:25)
[2023-07-05] MEDS: FUROSEMIDE 20 MG TABLET PO (09:26)
[2023-07-05] MEDS: HYDROCORTISONE 5 MG TABLET PO (09:26)
[2023-07-05] MEDS: LEVOTHYROXINE SODIUM 75 MCG TABLET PO (09:26)
[2023-07-05] MEDS: FLUDROCORTISONE ACETATE 0.1 MG TABLET 0.2 MG PO (09:27)
[2023-07-05] MEDS: PANTOPRAZOLE 40 MG TABLET PO (09:27)
[2023-07-05] MEDS: PREGABALIN (*CRX) 50 MG CAPSULE 100 MG PO ×2 (09:27→14:23)
[2023-07-05] MEDS: FOLIC ACID 1 MG TABLET PO (09:27)
[2023-07-05] MEDS: AMOXICILLIN/CLAVULANATE K 875-125 MG TAB 1 TABLET PO (09:27)
[2023-07-05] MEDS: LEVOTHYROXINE SODIUM 100 MCG TABLET PO (09:27)
[2023-07-05] MEDS: LORATADINE 10 MG TABLET PO (09:27)
[2023-07-05] MEDS: POTASSIUM CHLORIDE 20 MEQ ER TABLET PO (09:27)
--- NOTE | 2023-07-05 09:27 | PM.PNORT ---
Progress Note: A&P Assessment and Plan (1) Ulcer of right foot with muscle involvement without evidence of necrosis: Code(s): L97.515 - Non-pressure chronic ulcer of other part of right foot with muscle involvement without evidence of necrosis Status: Acute Assessment and Plan: Appreciate wound care team. Continue with silver gel and daily dressing changes. Discharge when medically stable and cleared. (2) Cavovarus deformity of foot, acquired: Qualifiers: Laterality: right Qualified Code(s): M21.6X1 - Other acquired deformities of right foot Code(s): M21.6X9 - Other acquired deformities of unspecified foot Status: Acute Assessment and Plan: Discussed with patient And his family in depth. CT scan reviewed. discussed option for non operative treatment versus foot reconstruction versus amputation. Risks and benefits of each discussed in detail. Patient to consider. Plan No urgent surgical indication at this time. Patient may be discharged home with wound care instructions and follow-up as outpatient. We will discuss surgical options and arrange for reconstruction versus amputation on an elective basis. Subjective Subjective Date/Time Seen: 07/05/23 09:27 Principal diagnosis: Right foot ulcer Interval history: No new complaints Exam Const: General: No confusion Orientation/consciousness: No confusion HENMT: Head: normal to inspection, normocephalic and atraumatic Extrem: Right upper extremity: normal to inspection Left upper extremity: normal to inspection Right lower extremity: ankle Details: normal to inspection, abnormal ROM Details: with range as follows (ankle dorsiflexion -10 degrees, plantar flexion 40?, inversion 15?, eversion 15?) and other ( good stability all directions); no tenderness, no swelling and no ecchymosis and foot Details: abnormal to inspection, abnormal ROM of toe ( hallux MTP dorsiflexion 40, plantar flexion 20?), vascular exam Details: dorsalis pedis pulse present and normal capillary refill, tendon exam Details: active flexion abnormal and active extension abnormal, motor-sensory exam Details: two point discrimination abnormal Location: in all toes and light-touch abnormal Location: in all toes and other (Hallux metatarsophalangeal motion 20? dorsiflexion/10? plantar flexion) Left lower extremity: ankle Details: normal to inspection and abnormal ROM Details: with range as follows (ankle dorsiflexion -10 degrees, plantar flexion 40?, inversion 15?, eversion 15?); no tenderness and no swelling and foot Details: normal capillary refill, abnormal ROM of toe, vascular exam (2+DP pulse, good cap refill all toes), tendon exam active flexion abnormal of the great toe and active extension abnormal of the great toe and motor-sensory exam two point discrimination abnormal and light-touch abnormal in all toes; no tenderness and no crepitus Other: Cavovarus foot deformity right ankle and hindfoot. Erythema over the lateral malleolus consistent with pressure with no skin breakdown. Dime-sized ulcer base of the 5th metatarsal. Close to bone but no exposed bone, unable to probe bone or tendon. No drainage. Mild surrounding erythema. Psych: Affect: normal affect Objective Data Vital Signs Vital Signs: Vital Signs - 24 hr 07/04/23 14:00 07/04/23 21:59 07/05/23 05:22 Temperature 97.7 F 97.4 F L 98.1 F Pulse Rate 71 63 89 Respiratory Rate 24 H 18 16 Blood Pressure 93/56 L 99/51 L 147/87 H Pulse Oximetry 99 96 92 Oxygen Delivery 07/05/23 07:00 07/05/23 07:00 Temperature Pulse Rate 100 100 Respiratory Rate 18 18 Blood Pressure Pulse Oximetry 92 Oxygen Delivery Room Air Intake/Output Intake/Output: Intake & Output 07/02/23 07/03/23 07/04/23 07/05/23 23:59 23:59 23:59 23:59 Intake Total 2120 2202 1640 936 Output Total 1700 1950 1650 1100 Balance 420 252 -10 -164 Meds/Results Medications: Active Medications Ge
[2023-07-05] MEDS: prednisoLONE ACETATE 1% OPHTH 5 ML 1 DROP EACH EYE (09:31)
[2023-07-05] MEDS: SILVERGEL (ELTA) 45 ML 1 APPLIC TOPICAL (09:32)
--- NOTE | 2023-07-05 11:27 | PM.DS ---
DS: Admitting Diagnosis Discharge Date July 05, 2023 Admitting Diagnosis Cellulitis, foot deformity DS: Discharge Diagnosis Discharge Diagnosis (1) Cavovarus deformity of foot, acquired: Qualifiers: Laterality: right Qualified Code(s): M21.6X1 - Other acquired deformities of right foot Code(s): M21.6X9 - Other acquired deformities of unspecified foot Status: Acute (2) Peripheral neuropathy: Qualifiers: Peripheral neuropathy type: polyneuropathy associated with underlying disease Qualified Code(s): G63 - Polyneuropathy in diseases classified elsewhere Code(s): G62.9 - Polyneuropathy, unspecified Status: Acute (3) Ulcer of right foot with muscle involvement without evidence of necrosis: Code(s): L97.515 - Non-pressure chronic ulcer of other part of right foot with muscle involvement without evidence of necrosis Status: Acute (4) Anemia: Code(s): D64.9 - Anemia, unspecified Status: Acute (5) Wound of right foot: Code(s): S91.301A - Unspecified open wound, right foot, initial encounter Status: Acute Assessment and Plan: (6) Urge incontinence: Code(s): N39.41 - Urge incontinence Status: Acute (7) CHF (congestive heart failure): Code(s): I50.9 - Heart failure, unspecified Status: Acute (8) Osteomyelitis of right foot: Code(s): M86.9 - Osteomyelitis, unspecified Status: Acute Plan Cellulitis and suspecting osteomyelitis of right foot Continue antibiotics Right foot acquired deformity Await surgical plan Per patient he is wanting amputation Urge incontinence: ?Code(s): N39.41 - Urge incontinence ?Status:?Acute ?Assessment and Plan: Monitor ?Heart failure, unspecified Appears compensated Anemia Monitor Hypokalemia Monitor -Rheumatoid Arthritis: continue Rinvoq (home dose needed), pregabalin, hydrocortisone PO, Percocet, tizanidine, folic acid. -Hypothyroidism: continue Synthroid -COPD: no active wheezing or SOB. Continue home albuterol neb/rescue inhaler, Trelegy Ellipta. -HLD: continue atorvastatin, niacin -DVT: hold Xarelto for possible procedures/I&D -Allergies: continue cetirizine -Constipation: continue home senna plus -Depression: continue bupropion and citalopram. Denied SI/HI. -Adrenal Insufficiency: fludrocortisone 0.1 mg, prednisolone -Additional Home Meds: continue melatonin, potassium, vitamin D. No signs of exacerbation. home lubricant eye drop not available. Neck pain Monitor DS: Summary Hospital Course Hospital Course: Patient is a 67-year-old male who came in with cellulitis and pain in his right foot has significant deformity. With repeated surgery was consulted and will follow the patient as an outpatient for possible surgery. Wound cultures did grow MRSA and patient be discharged on Bactrim Time Spent with Patient Time attestation: Total time spent providing and/or coordinating discharge services: Exam Narrative: GENERAL: Pleasant, in no acute distress. Well-nourished. - EYES: EOMI. Anicteric. - HENT: Moist mucous membranes. No tenderness of cervical spine - LUNGS: Clear to auscultation bilaterally, no wheezing, rhonchi, or rales. - CARDIOVASCULAR: Regular rate and rhythm. No murmur. No JVD. - ABDOMEN: Soft, non-tender and non-distended. No palpable masses. - EXTREMITIES: No edema. Peripheral pulses 2+. Non-tender. Deformity of right ankle right foot - NEUROLOGIC: No focal neurological deficits. CN II-XII grossly intact. - PSYCHIATRIC: Awake, Alert and oriented x 3. Appropriate mood and affect. - SKIN: open wound to the right lateral foot, no active drainage. Erythema to anterior RLE with small healing wounds. - LYMPH: No cervical lymphadenopathy. DS: Data Data Completed and Pending Labs on day of discharge: Labs from last 24 hours 07/05/23 05:42 Sodium 137 Potassium 3.7 Chloride 106 C
[2023-07-05 14:00] VITALS: BP 96/59; PULSE 67; RESP 20; TEMP 36.7; O2SAT 98
[2023-07-05 14:02] LABS: SARS-CoV-2 RNA PCR Negative (Negative)
--- NOTE | 2023-07-05 15:11 | PC.NURSE ---
1445 patient d/c to [facility], family taking by private car, taken down in wheelchair. IV out, denies any pain or further instructions.
== END 2023-07-05 14:45 | DRG 602 ==
LOC: ANHED 15:11 → ANH3MEDSUR 15:49
PROVIDERS: Emergency Medicine; Student in an Organized Health Care Education/Training Program; Admitting Provider Hospitalist; Emergency Provider Student in an Organized Health Care Education/Training Program; Visit Provider Chiropractor
DX: L03.115 Cellulitis of right lower limb (principal); L89.893 Pressure ulcer of other site, stage 3; I50.9 Heart failure, unspecified; J44.9 Chronic obstructive pulmonary disease, unspecified; N18.30 Chronic kidney disease, stage 3 unspecified; E87.6 Hypokalemia; D64.9 Anemia, unspecified; E03.9 Hypothyroidism, unspecified; N40.1 Benign prostatic hyperplasia with lower urinary tract symptoms; N39.41 Urge incontinence; E78.5 Hyperlipidemia, unspecified; M54.2 Cervicalgia; M05.79 Rheumatoid arthritis with rheumatoid factor of multiple sites without organ or systems involvement; G62.9 Polyneuropathy, unspecified; B95.62 Methicillin resistant Staphylococcus aureus infection as the cause of diseases classified elsewhere; Z20.822 Contact with and (suspected) exposure to COVID-19; Q66.89 Other specified congenital deformities of feet; Z86.718 Personal history of other venous thrombosis and embolism; Z87.891 Personal history of nicotine dependence; Z79.01 Long term (current) use of anticoagulants; Z79.82 Long term (current) use of aspirin
CPT/HCPCS: 36415; 72156; 73630; 73700; 73718; 74178; 80048; 80053; 80202; 81003; 82565; 82948; 83605; 83735; 83880; 84132; 84439; 84443; 85025; 85652; 86140; 87070; 87147; 87186; 87205; 87635; 93005; 94640; 96365; 96366; 96375; 96376; 99285; A9270; A9577; C8929; G0378; J0696; J2543; J3370; J3480; J7040; Q9957; Q9967

== ENCOUNTER 2025-09-30 11:46 | Outpatient (CLI) | payer MEDICARE, SELFPAY ==
--- NOTE | ~2025-09-30 | XR_ITS ---
EXAMINATION: XR chest 2V, 09/30/2025 12:08 RN ANESTHESIOLOGY HISTORY: I50.9 - Heart failure, unspecified COMPARISON: No comparisons available. Technique: 2 views obtained. Findings: The lungs are clear, no effusion. No pneumothorax. Heart is normal size. Mediastinal and hilar contours are within normal limits. Bony thorax no acute abnormality. Impression: No acute cardiopulmonary abnormality. Reviewed, dictated and finalized at location P. ANESTHESIOLOGY Impression: No acute cardiopulmonary abnormality.
--- NOTE | 2025-09-30 12:00 | ECG_ITS ---
Test Date: 2025-09-30 12:20:40 Measurements Intervals [place] Rate: 86 P: 39 ME: 157 QRS: -20 QRSD: 86 T: 30 QT: 371 QTc: 444 Interpretive Statements SINUS RHYTHM LOW QRS VOLTAGE IN PRECORDIAL LEADS PATTERN CONSISTENT WITH PULMONARY DISEASE POSSIBLE RIGHT VENTRICULAR CONDUCTION DELAY BORDERLINE T WAVE ABNORMALITY- INFERIOR LEADS BASELINE ARTIFACT- I, III, AVR, AVL, AVF BORDERLINE ECG No previous ECG available for comparison Electronically Signed On 09-30-2025 13:05:53 PRODUCTION DISPATCHER by Silviano Peguero D.O.
[2025-09-30 12:18] LABS: Hematocrit 41.0 % (42.0-52.0); Hemoglobin 12.9 g/dL (14.0-18.0); Immature Granulocyte Percent A 0.3 % (0-0.5); Lymphocytes Absolute Auto 2.34 K/mm3 (0.9-3.2); Mean Corpuscular HGB Conc 31.5 g/dl (32-36); Mean Corpuscular Hemoglobin 29.5 pg (26-34); Mean Corpuscular Volume 93.6 fl (80-100); Nucleated Red Blood Cells Absolute Auto 0.000 K/mm3 (0.0-0.012); Nucleated Red Blood Cells Perc 0.0 % (0.0-0.2); Platelet Count Result 279 k/mm3 (150-375); Red Blood Count 4.38 M/mm3 (4.6-6.20); White Blood Count 7.4 K/mm3 (4.5-10.0)
[2025-09-30 12:30] LABS: INR 1.0; Prothrombin Time 13.7 Seconds (11.1-14.7)
[2025-09-30 12:31] LABS: Anion Gap 6 mmol/L (4-12); Blood Urea Nitrogen 15 mg/dL (9-20); Calcium 8.8 mg/dL (8.4-10.2); Carbon Dioxide 29 mmol/L (22-30); Chloride 101 mmol/L (98-107); Estimated Glomerular Filt Rate > 60; Glucose 94 mg/dL (65-110); Partial Thromboplastin Time 32.9 Seconds (22.3-36.8); Potassium 3.7 mmol/L (3.4-5.0); Sodium 136 mmol/L (137-145)
== END 2025-09-30 11:47 | disposition home or self-care (01) ==
PROVIDERS: Anesthesiology; PCP Family Medicine; Visit Provider Orthopaedic Surgery
DX: Z01.818 Encounter for other preprocedural examination (principal); D64.9 Anemia, unspecified; E78.00 Pure hypercholesterolemia, unspecified; N18.9 Chronic kidney disease, unspecified; I50.9 Heart failure, unspecified
CPT/HCPCS: 36415; 71046; 80048; 85025; 85610; 85730; 93005

== ENCOUNTER 2025-10-14 15:32 | Inpatient (IN) | payer MEDICARE, SELFPAY ==
--- NOTE | 2025-09-30 11:58 | PC.NURSE ---
[facility] has started construction of its new state of the art ER which will open Spring 2026. With this, we anticipate parking may be a challenge for some our surgical patients and families. Parking spaces are limited but are available for all Surgical, obstetrics, and ER patients sharing this lot. If you arrive and find you are having a hard time finding a parking space, please note that we understand the challenges, please drive around the hospital and park near Hospital Entrance 1. When you enter this entrance, you can ask a volunteer to direct or take you back to the surgical waiting area to check in. We appreciate everyone?s understanding of these expected challenges while we build for your future. Report to the Outpatient Waiting Room, entrance under the green pavilion located off [address], at time _10 AM on date _10/14/25 . Planned Procedure Time: _1200 NOON .? Time changes happen often and if your time is changed the preop area will call you the afternoon before. - You and your visitor will be asked to self-screen and do not enter if you have any COVID symptoms. Please call surgeon if you need to reschedule. - A mask is optional within the hospital at this time. Patients may have clear liquids (water, carbonated beverages, clear teas, apple juice) until 3 hours prior to surgery( 9am) with a maximum of 20 ounces. - No food from midnight until time of surgery and no smoking, or chewing tobacco (or any form of nicotine). No chewing gum, candy or mints. - Take only the following medications with a SIP of water on the morning of surgery: _LEVOTHYROXINE,PREGABALIN,OXYCODONE IF NEEDED FOR PAIN DO NOT STOP ANY OF YOUR OTHER PRESCRIPTION MEDICATIONS PRIOR TO SURGERY EXCEPT THE FOLLOWING Hold all vitamins and supplements for 3 days per anesthesiologist.LAST DOSE 10/10/25 Medications to discontinue per physician Please no make-up, nail greek, hairspray, perfume, deodorant, or body powder the day of surgery.? No jewelry (including any body piercings) or valuables the day of surgery, leave them at home.? Please take a shower or bath the night before, or the morning of, surgery with an antibacterial soap.? Wear comfortable, loose fitting clothing.? Children are encouraged to wear pajamas. - Jewelry must be removed prior to entering the operating room.? Rings and piercings that are not removed may be cut off. - The hospital will not accept responsibility for valuables.? - Please leave all valuables, including medications, at home the day of surgery. If you are going home after surgery, a licensed tank truck driver must drive you home.? - NO public transportation without another adult if you receive anesthesia. - We recommend that an adult stay with you for 24 hours following discharge. - We also recommend that you do not drive, make important decision, drink alcoholic beverages, or take any drugs that were not prescribed by your health care provider for at least 24 hours after your discharge time. For Pediatric surgeries, we recommend two adults accompany the child home. Follow any additional instructions given to you from your surgeon. VERBAL AND WRITTEN instructions given to __PATIENT and asked if any additional questions and then verbalized understanding. Patient advised to call surgeon office or pre surgery nurse liaison [phone] if any additional questions.
[2025-09-30 12:35] VITALS: BP 143/94; PULSE 88; RESP 18; TEMP 36.4; O2SAT 100; BMI 31.3
--- NOTE | 2025-10-13 15:50 | PM.IMHP2 ---
H&P: HPI History of Present Illness Date/Time: 10/13/25 15:50 Chief Complaint: Right foot deformity Narrative: 70-year-old male with severe right foot cavovarus deformity. Unable to ambulate or place foot on the ground. Unable to brace. Currently in a wheelchair. At risk for ulceration, infection and systemic involvement. Review of Systems Constitutional: Constitutional: Denies fever(s) Eyes: Eyes: Denies blurry vision ENT: Reports Normal hearing present Cardiovascular: Cardiovascular: Denies chest pain and Denies dyspnea Respiratory: Respiratory: Denies dyspnea and Denies wheezing Gastrointestinal: Gastrointestinal: Denies abdominal pain Genitourinary: Genitourinary: Denies urinary urgency Musculoskeletal: Musculoskeletal: Reports as per HPI and Denies numbness Integumentary/Breasts: Skin/Breast: Denies changing lesions and Denies sores Neurologic: Reports Normal hearing present, Denies behavioral changes, Denies confusion, Denies numbness and Denies convulsions Psychiatric: Psychiatric: Denies behavioral changes, Denies confusion and Denies hallucinations Endocrine: Endocrine: Denies heat intolerance Hematologic/Lymphatic: Hematologic/Lymphatic: Denies easy bleeding Allergic/Immunologic: Allergic/Immunologic: Denies wheezing PMF Past Medical History Medical History 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, acquired Peripheral neuropathy Ulcer of right foot with muscle involvement without evidence of necrosis CHF (congestive heart failure) DVT (deep venous thrombosis) LLE Right club foot Hypothyroidism COPD (chronic obstructive pulmonary disease) Rheumatoid arthritis CKD (chronic kidney disease) Family History Family History Mother High cholesterol Hypertension Sibling High cholesterol Social History Social History Smoking packs per day: 1 Smoking cigarettes per day: 20.0 Years smoked: 20 Smoking pack-years: 20.00 Smoking status: Former smoker Tobacco type: cigarettes Smoking end date: 10/28/21 Alcohol intake: never Substance use: never Lack of Transportation: No Lack of Food: Never True Current Housing: I Have Housing Concerned About Future Housing: No Difficulty Paying Gas/Electric Bills: No Difficulty Paying for Meds: No Currently Unemployed: No Education: High School Diploma/GED Difficulty w/ Childcare or Family Care: No Living arrangements: with family Spiritual care concerns: No Meds Home Medications and Allergies Home Medications ?Medication ?Instructions ?Recorded ?Confirmed ?Type atorvastatin 20 mg tablet 20 mg PO HS 06/29/23 09/30/25 History ergocalciferol (vitamin D2) 25,000 50,000 unit PO WEEKLY 06/29/23 09/30/25 History unit capsule fludrocortisone 0.1 mg tablet 0.2 mg PO DAILY 06/29/23 09/30/25 History niacin 1,000 mg tablet,extended 1,000 mg PO HS 06/29/23 09/30/25 History release 24 hr oxycodone-acetaminophen 5 mg-325 1 tablet PO Q6H PRN Pain 06/29/23 09/30/25 History mg tablet potassium chloride 20 mEq 20 meq PO DAILY 06/29/23 09/30/25 History tablet,extended release pregabalin 100 mg capsule 100 mg PO TID 06/29/23 09/30/25 History cyanocobalamin (vitamin B-12) 1,000 mcg PO DAILY 09/13/25 09/30/25 History 1,000 mcg capsule furosemide 40 mg tablet 40 mg PO DAILY 09/13/25 09/30/25 History hydroxyzine HCl 25 mg tablet 25 mg PO BID PRN itching 09/13/25 09/30/25 History levothyroxine 175 mcg tablet 50 mcg PO DAILY 09/13/25 09/30/25 History omeprazole 20 mg capsule,delayed 20 mg PO DAILY 09/13/25 09/30/25 History release levothyroxine 50 mcg tablet 50 mcg PO DAILY 09/30/25 09/30/25 History Allergies Allergy/AdvReac Type Severity Reaction Status Date / Time No Known Allergies Allergy Verified 09/30/25 12:12 Exam Const: General: No confusion Orientation/consciousness: No confusion HENMT: Head: normal to inspection, normocephalic and atraumatic Extrem: Right upper extremity: normal to inspection Left upper extremity: normal to inspection Right lower extremity: ankle Details: normal to inspection, abnormal ROM Details: with range as follows (ankle dorsiflexion -10 degrees, plantar flexion 40?, inversion 15?, eversion 15?) and other ( good stability all directions); no tenderness, no swelling and no ecchymosis and foot Details: abnormal to inspection, abnormal ROM of toe ( hallux MTP dorsiflexion 40, plantar flexion 20?), vascular exam Details: dorsalis pedis pulse present and normal capillary refill, tendon exam Details: active flexion abnormal and active extension abnormal, motor-sensory exam Details: two point discrimination abnormal Location: in all toes and light-touch abnormal Location: in all toes and other (Hallux metatarsophalangeal motion 20? dorsiflexion/10? plantar flexion) Left lower extremity: ankle Details: normal to inspection and abnormal ROM Details: with range as follows (ankle dorsiflexion -10 degrees, plantar flexion 40?, inversion 15?, eversion 15?); no tenderness and no swelling and foot Details: normal capillary refill, abnormal ROM of toe, vascular exam (2+DP pulse, good cap refill all toes), tendon exam active flexion abnormal of the great toe and active extension abnormal of the great toe and motor-sensory exam two point discrimination abnormal and light-touch abnormal in all toes; no tenderness and no crepitus Other: Cavovarus foot deformity right ankle and hindfoot. Erythema over the lateral malleolus consistent with pressure with no skin breakdown. Dime-sized ulcer base of the 5th metatarsal. Close to bone but no exposed bone, unable to probe bone or tendon. No drainage. Mild surrounding erythema. Psych: Affect: normal affect Assessment and Plan Assessment and plan (1) Cavovarus deformity of foot, acquired: Qualifiers: Laterality: right Qualified Code(s): M21.6X1 - Other acquired deformities of right foot Code(s): M21.6X9 - Other acquired deformities of unspecified foot Status: Acute Assessment and Plan: Discussed nonoperative and operative treatment options with the patient. Risks and benefits of each as well as alternatives were reviewed. All of the patient's questions were answered. The risks of surgery reviewed including but not limited to: Neurovascular damage, wound complication, infection, blood clot, pulmonary embolus, stroke, myocardial infarction, and anesthetic risks up to and including . Continued pain and possible dysfunction were explained. Specific risks of the procedure including later recurrence of deformity. No guarantees were offered. If hardware used, discussed risk of failure/ breakage and possible need for removal. If complications occur, the patient understands the need for further treatment, possible further surgery. Patient verbalizes understanding and wishes to proceed. PLAN: Right transtibial amputation with possible tibia-fibula arthrodesis. (2) Wound of right foot: Code(s): S91.301A - Unspecified open wound, right foot, initial encounter Status: Acute Plan We had a long in-depth discussion about possible options for treatment for his right foot. Attempted salvage verses amputation discussed in detail. Risks, benefits and alternatives of each option were reviewed. All of his questions were answered. He is ready to proceed with an amputation.
[2025-10-14] VITALS (14 sets, daily range): BP systolic 107–132; BP diastolic 63–84; PULSE 72–89; RESP 10–18; TEMP 35.6–36.6; O2SAT 93–100; BMI 31.4; BMI 31.7
[2025-10-14] MEDS: KETOROLAC 15 MG/ML VIAL (*BKC) IV PUSH (10:57)
[2025-10-14] MEDS: ACETAMINOPHEN 500 MG TABLET 1000 MG PO (10:57)
--- NOTE | 2025-10-14 11:44 | WPDHPUPDATE1 ---
History and Physical Update Update Date/Time: 10/14/25 11:44 History and Physical has been reviewed, including an updated exam of the patient. There are NO changes in the patient's condition. Risks, benefits, and alternatives have been discussed and questions answered. Patient agrees to proceed with procedure.
[2025-10-14] MEDS: LACTATED RINGERS 1,000 ML 30 ML IV CONT (12:00)
--- NOTE | 2025-10-14 12:04 | WPDANESEPPF ---
Anes - Initial Pre Proc Eval Procedure: Operation Date: 10/14/25 12:00 Proposed Procedures p Right Trans Tibial Amputation, Possible Tibia/ Fibula Arthrodesis - Yandel Levy MD Date/Time: 10/14/25 12:04 Surgeon: Yandel Levy MD Pre Op Diagnosis: Right Foot Deformity, Neuropathy Patient Data Age: 70 Gender: M Height: 1.7 m Weight: 90.75 kg Last Vital Signs Temp 97.3 F L 10/14/25 10:31 Pulse 89 10/14/25 10:31 Resp 18 10/14/25 10:31 BP 127/77 10/14/25 10:31 Pulse Ox 100 10/14/25 10:31 O2 Del Method Room Air 10/14/25 10:31 Allergies Allergy/AdvReac Type Severity Reaction Status Date / Time No Known Allergies Allergy Verified 10/14/25 10:29 Home Medications ?Medication ?Instructions ?Recorded ?Confirmed ?Type atorvastatin 20 mg tablet 20 mg PO HS 06/29/23 09/30/25 History ergocalciferol (vitamin D2) 25,000 50,000 unit PO WEEKLY 06/29/23 09/30/25 History unit capsule fludrocortisone 0.1 mg tablet 0.2 mg PO DAILY 06/29/23 09/30/25 History niacin 1,000 mg tablet,extended 1,000 mg PO HS 06/29/23 10/14/25 History release 24 hr oxycodone-acetaminophen 5 mg-325 1 tablet PO Q6H PRN Pain 06/29/23 09/30/25 History mg tablet potassium chloride 20 mEq 20 meq PO DAILY 06/29/23 09/30/25 History tablet,extended release pregabalin 100 mg capsule 100 mg PO TID 06/29/23 10/14/25 History cyanocobalamin (vitamin B-12) 1,000 mcg PO DAILY 09/13/25 09/30/25 History 1,000 mcg capsule furosemide 40 mg tablet 40 mg PO DAILY 09/13/25 09/30/25 History hydroxyzine HCl 25 mg tablet 25 mg PO BID PRN itching 09/13/25 09/30/25 History omeprazole 20 mg capsule,delayed 20 mg PO DAILY 09/13/25 09/30/25 History release levothyroxine 50 mcg tablet 50 mcg PO DAILY 09/30/25 10/14/25 History fluticasone fur. 100 mcg-umeclid 1 inh inhalation Q24H 10/14/25 10/14/25 History 62.5 mcg-vilant 25 mcg inhalat.powder (Trelegy Ellipta) Patient hx anesthesia problems: none Family hx anesthesia problems: none Results Review: All pre-operative results and documents have been reviewed as part of the pre-operative evaluation. 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, acquired Peripheral neuropathy Ulcer of right foot with muscle involvement without evidence of necrosis CHF (congestive heart failure) DVT (deep venous thrombosis) LLE Right club foot Hypothyroidism COPD (chronic obstructive pulmonary disease) Rheumatoid arthritis CKD (chronic kidney disease) Family History Family History Mother High cholesterol Hypertension Sibling High cholesterol Social History Social History Smoking packs per day: 1.5 Smoking cigarettes per day: 30.0 Years smoked: 20 Smoking pack-years: 30.00 Smoking status: Former smoker Tobacco type: cigarettes Smoking end date: 01/26/22 Alcohol intake: never Substance use: never Lack of Transportation: No Lack of Food: Never True Current Housing: I Have Housing Concerned About Future Housing: No Difficulty Paying Gas/Electric Bills: No Difficulty Paying for Meds: No Currently Unemployed: No Education: High School Diploma/GED Difficulty w/ Childcare or Family Care: No Living arrangements: with family Spiritual care concerns: No Anes - Eval Final PreProcedure Day of Procedure 10/14/25 12:04 Patient weight: obese Heart: regular rate and rhythm Lungs: clear to auscultation Airway: Mallampati scale class III Neurological: alert and oriented Last oral intake: >/= 8 hours ASA classification: III Emergent: no Anesthetic plan: proceed Anesthesia type and monitoring: general LMA and standard monitoring Results Review: All pre-operative results and documents have been reviewed as part of the pre-operative evaluation. Informed Consent: The patient's anesthetic plan and its attendant risks and benefits were discussed with the patient/family/POA. Questions were solicited and answers provided to the satisfaction of the patient/family/POA.
[2025-10-14] MEDS: ceFAZolin 2 GM in SODIUM CHLORIDE 0.9% IV 50 ML 100 ML IVPB (12:12)
--- NOTE | 2025-10-14 13:06 | S_PTH ---
PATIENT: Obie Greenwood LOC: [id number] #:[id number] AGE/SX: 70/M ROOM: 319 RE10/14/[address]: Yandel Levy MD : [id number] BED: 01 DIS: 10/19/2025 SPEC #: [id number] RECD: 10/14/25 13:19 STATUS: JODY REJorge #: [id number] GURMEET: 10/14/25 13:[address]: Yandel Levy DEPT: [facility] Surgical RECD BY: Porsha Love ENTERED: 10/14/25 13:19 SP TYPE: Surgical OTHR DR: Peyton BurrisMD Tissues: A - Leg Procedures: Hematoxylin and Eosin Stain Gross and Microscopic Level 5 Decalcification
--- NOTE | 2025-10-14 14:20 | W.PM.PROC2 ---
Procedure Note - Detailed Date of Procedure 10/14/25 Pre-op Diagnosis Right Foot Deformity, Neuropathy Post-op Diagnosis Same Procedure Performed Right transtibial amputation with primary tibial fibular arthrodesis and immediate cast fitting. 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 Unable to salvage the foot. Presents now for operative treatment is he is ulcerative risk infection and unable to bear weight. Description of Procedure Patient identified in the preoperative holding. Informed consent given. Operative extremity marked. Patient received intravenous antibiotics. Patient brought to the operating room where underwent general anesthetic by anesthesia team. Positioned supine on operating room table. Time-out performed confirming the patient, site of the surgery and the plan. Right Leg then prepped and draped usual sterile surgical fashion using Betadine prep solution. Calf and leg exsanguinated and a thigh tourniquet inflated to 250 mmHg. Anatomic landmarks mapped out on the skin to allow for a posterior flap and approximately 12 cm of tibia below the tibial tubercle. Skin incision made with a 10 blade knife. Hemostasis controlled electrocautery. Cautery dissection carried down circumferentially through the fascia. Dissection then carried around the proximal fibula, retractors placed and sagittal saw used to transect the fibula. Elevator used to dissect soft tissue off of the tibia. Tibia once again measured and the tibia osteotomy performed with a sagittal saw with retractors posterior to protect the soft tissue. Saphenous vessels and peroneal vessels were identified and ligated with 2 0 silk suture. The peroneal nerve and saphenous nerve identified and anesthetized with 0.5% Marcaine with epinephrine and ligated. Tibia was then brought forward and an amputation knife was placed posterior to the tibia and the distal fibula and the soft tissue was transected away from the bone. The cut was completed through the Achilles tendon. The distal leg ankle and foot were then passed off as specimen. Tibial artery identified and ligated with 2 0 silk suture. Tibial nerve identified and anesthetized with 0.5% Marcaine with epinephrine and ligated. Any other bleeding points coagulated with cautery. The tourniquet was then released. Any further bleeding was controlled with cautery or 2 0 silk suture ligation. After thorough hemostasis the wound was thoroughly irrigated with antibiotic solution. The anterior cortex of the tibia was shaped with the saw to reduce pressure. Thorough irrigation again performed. Myodesis was then performed of the gastrocnemius over the distal tibia using #2 Ethibond suture placed through trans osseous holes in the distal tibia. Proximal tibia fibula arthrodesis then performed. Second cut made at the distal fibula and the interval segment was rotated 90? into the space between the tibia and fibula. Guide pin placed from the fibula through the intercalary bone piece and into the tibia. Reaming then done with the cannulated drill. Bone thoroughly irrigated. Tight rope passed from the fibula through the intercalary bone piece and through the tibia. Medial button was flipped and suture was secured laterally compressing the arthrodesis site. Suture was cut. Fascia then repaired with 0 Vicryl interrupted suture. Subcutaneous tissue repaired with 2 O Vicryl 3 0 Monocryl interrupted suture and skin repaired with juanita. Sterile dressing followed by a immediate fitting weight-bearing cast using fiberglass cast material. Patient awoken from anesthesia, extubated and taken to recovery room in stable condition. All sponge needle and instrument counts correct at the end of the case. Implants Arthrex tight rope Estimated Blood Loss 50 Tourniquet Time Total Tourniquet Time: 30 Drains No Packing No Pathology None sent Complications None Condition Stable Disposition PACU [facility] Billing Surgery - Charge Forward: Surgery Billing ([id number], [id number])
--- NOTE | 2025-10-14 16:05 | ADMGEN ---
This patient, Obie Greenwood, was admitted to [address] [facility] Surg Room 319-01. Patient/family oriented to hospital policies and general routines including ID bracelet, bed and alarms, visiting hours, pain management, procedures, bathroom and other care routines, personal items, smoking policy, room service/diet, and visiting hours. Information on how to activate the Rapid Response Team has been discussed. Patient/Family are encouraged to report perceived risks to care and to ask questions if they do not understand what they are told or what they should do. [facility]
--- OUTSIDE RECORDS SUMMARY | 2025-10-14 16:14 | XMS_ITS | Clinical Summary ---
Author Organization [facility] Office Center Address [address] [place] [address] Care Team Providers Care Plate Maker Zinc Name Role Phone Peyton Burris MD Primary Care Provider [phone] Kulwant Moreno MD Unavailable [phone] Bernie MenesesW Unavailable Bo Banuelos MD Unavailable [phone] Allergies No known active allergies Medications furosemide (LASIX) 40 mg tablet Take 1 tablet (40 mg total) by mouth daily 30 tablet 07/02/20 25 026 Active potassium chloride ER (KLOR-CON) 20 mEq CR tablet Take 1 tablet (20 mEq total) by mouth daily 30 tablet 11 07/02/20 25 026 Active hydrOXYzine (ATARAX) 25 mg tabletIndicatio ns:Itching Take 1 tablet (25 mg total) by mouth 2 (two) times a day as needed for itching 90 tablet 4 07/08/20 25 Active cyanocobalamin (Vitamin B-12) 1,000 mcg tabletIndicatio ns:Prevention of Vitamin B12 Deficiency TAKE 2 TABLETS (2,000 MCG TOTAL) BY MOUTH DAILY 200 tablet 3 08/12/20 25 026 Active omeprazole (PriLOSEC) 20 mg capsule TAKE 1 CAPSULE BY MOUTH EVERY DAY 90 capsule 1 08/16/20 25 Active atorvastatin (LIPITOR) 20 mg tablet TAKE 1 TABLET BY MOUTH EVERY DAY 90 tablet 08/16/20 25 Active niacin ER (NIASPAN) 1,000 mg CR tablet TAKE 1 TABLET (1,000 MG TOTAL) BY MOUTH NIGHTLY 90 tablet 2 08/16/20 25 Active fluticasone-ume clidin-vilanter (Trelegy Ellipta) 100-62.5-25 mcg inhalerIndicati ons:Chronic obstructive pulmonary disease, unspecified COPD type (HCC) Inhale 1 puff daily 60 each 2 09/01/20 25 Active levothyroxine (SYNTHROID) 50 mcg tabletIndicatio ns:Elevated TSH TAKE 1 TABLET (50 MCG TOTAL) BY MOUTH SERICULTURIST BEFORE BREAKFAST 90 tablet 09/09/20 25 Active ergocalciferol (VITAMIN D) 50,000 unit capsule TAKE 1 CAPSULE (50,000 UNITS TOTAL) BY MOUTH EVERY 30 DAYS 3 capsule 1 09/20/20 25 Active oxyCODONE-aceta minophen (PERCOCET) 5-325 mg per tabletIndicatio ns:Pain Take 1 tablet by mouth every 8 (eight) hours as needed for pain 30 tablet 09/22/20 25 Active pregabalin (LYRICA) 100 mg capsuleIndicati ons:Bilateral leg pain Take 1 capsule (100 mg total) by mouth 2 (two) times a day 60 capsule 4 09/22/20 25 Active ergocalciferol (VITAMIN D) 50,000 unit capsule TAKE 1 CAPSULE (50,000 UNITS TOTAL) BY MOUTH EVERY 30 DAYS 3 capsule 07/02/20 25 025 Discontinued pregabalin (LYRICA) 100 mg capsuleIndicati ons:Bilateral leg pain TAKE 1 CAPSULE BY MOUTH TWICE A DAY 60 capsule 4 07/06/20 25 025 Discontinued(Re order) oxyCODONE-aceta minophen (PERCOCET) 5-325 mg per tabletIndicatio ns:Pain Take 1 tablet by mouth every 8 (eight) hours as needed for pain 30 tablet 07/08/20 25 025 Discontinued(Re order) Active Problems Problem Noted Date Diagnosed Date Encounter for Medicare annual wellness exam 06/28 Assessment & Plan (07/26/2025 12:48 PM CDT): Patient here for annual Medicare wellness visit and for review of complete medical problem list. All the elements of the plan were completed as outlined by CMS. A copy of the prevention plan was given to the patient. I reviewed Medicare Wellness Questionnaire (other physicians involved in care, depression screen, advanced directives), cognitive/memory, and functional assessment. I reviewed and updated the complete problem list, medication list, family history, and immunization records with the patient. I provided preventive counseling and early detection interventions to the patient through health maintenance update and summary of today's office visit. Pain in joint, multiple sites 06/10/2025 Assessment & Plan (06/20/2025 4:54 PM CDT): Orders: Ambulatory referral to Home Health; Future CHF exacerbation 10/05/2024 Carpal tunnel syndrome of right wrist 04/20/2024 Cellulitis of multiple sites of head and neck Closed fracture of rib of left side 04/20/2024 Acute blood loss anemia 10/07/2023 Assessment & Plan (10/09/2023 11:51 AM DATA VISUALIZATION DEVELOPER): - Hgb trend (10/07): 7.7g/dL -- 5.4g/dL - 10/07: transfused 2u pRBC - continue to trend Hgb - 10/08 Phenylephrine gtt needed for BP 90/70s - 10/09: Hgb 9.2, SBP 89-131 Discharge planning issues 10/07/2023 Assessment & Plan (10/11/2023 12:49 PM DATA VISUALIZATION DEVELOPER): - Awaiting MRI results and NSG recs - CM initial assessment completed - 10/07: receiving 2u pRBC, needs MRI cspine, needs PT/OT evaluation - 10/09 awaiting NSG spine recs. Unable to tolerate MRI. Working with PT/OT with collar on. - 10/10: awaiting PT/OT eval - 10/11: patient refused placement in SNF. Patient discharged home with home health DVT (deep venous thrombosis) 10/06/2023 Assessment & Plan (10/07/2023 1:45 PM DATA VISUALIZATION DEVELOPER): - 12/07/22 duplex with acute right peroneal DVT - 01/09/23 duplex with no DVT noted - Home xarelto held Closed subluxation of cervical spine, initial en counter 10/05/2023 Assessment & Plan (10/06/2023 5:11 AM DATA VISUALIZATION DEVELOPER): ED CT neck: No e/o acute C-spine fracture. Craniocervical junction misalignment c/f atlantoaxial rotatory subluxation, mild basilar invagination, and superimposed atlantoaxial rotatory fixation. Unclear if acute or chronic, new from prior scans 01/15/23. - NSY c/s: - MRI neck this AM - strict spinal precautions - Haldol x2 for agitation and atte Assessment & Plan (10/11/2023 12:52 PM DATA VISUALIZATION DEVELOPER): - Neurosurgery Spine consult - Per patient's mother, he didn't fall and hit his head; his fall was controlled and she cradled his head as he fell - Per mother, patient has chronic neck pain that has worsened over the last few weeks, bad enough to vomit due to pain - MRI Cspine (10/07): attempted, not completed successfully - Q2 N check, - strict cervical precautions - [place] J c-collar - 10/05: upright x-rays--Malalignment of C1 and C2, better evaluated on the CT dated 10/05/2023 - 10/09: MRI attempted with Haldol 5mg IV, did not tolerate. Pt refused MRI with sedation. NSG aware, awaiting recs - XR c spine flexion/extension (10/09): Widening of the atlantodental interview with flexion suggestive of atlantoaxial instability; Increased anterolisthesis of C4 on C5 with flexion. C3-C4 anterolisthesis is unchanged with motion; rotatory subluxation at C1-C2 and C2-C3 is better appreciated on prior CT. - 10/10: NSGY recs [place] J x6 weeks - Physical therapy and Occupational therapy were consulted to evaluate the patient. Both PT and OT recommended [facility] facility. However, the patient chose to go home with home health Cellulitis, unspecified 07/12/2023 Urge incontinence 07/05/2023 Polyneuropathy, unspecified 07/05/2023 Other acquired deformities of right foot 023 Other acute osteomyelitis, right ankle and foot 07/05/2023 Cognitive communication deficit 07/05/2023 Dry eye syndrome of bilateral lacrimal glands Ulcer of ankle, right, limited to breakdown of s kin 06/21/2023 Assessment & Plan (06/21/2023 8:16 PM CDT): Breakdown associated with necessary splint in order for patient to ambulate. X- ray performed, results currently pending. Continue aggressive wound care. Has follow-up with foot and ankle surgeon Pressure injury of right ankle, stage 2 06/10/20 Assessment & Plan (06/10/2023 7:29 PM CDT): Due to patient's long-term splint. Overall pain is stable, area is being treated by wound care. Remove splint when not needed/not ambulating. Patient also reports that he is gotten the source before from his splint. Recurrent major depressive disorder, in partial remission 06/04/2023 Assessment & Plan (06/21/2023 8:04 PM CDT): Mood is stable, continue Wellbutrin, Celexa Assessment & Plan (06/10/2023 7:31 PM CDT): Mood overall stable, continue Wellbutrin, Celexa, p.r.n. Xanax Assessment & Plan (06/04/2023 12:50 PM CDT): PT mood is overall stable, continue Celexa, Wellbutrin, prn xanax. Hyponartemia has resolved Acute bacterial conjunctivitis of both eyes 03/29 Assessment & Plan (05/08/2023 9:22 PM CDT): Without improvement, will discontinue erythromycin, add tobramycin drops x5 days. Continue home lifitegrast 5 %. Will add prednisolone Assessment & Plan (04/29/2023 10:41 AM CDT): Eye remain irritated - although improving. Will extend erythromycin x 10days total. Will start lifitegrast 5 % to both eye, consider restarting prednisolone acetate once done with antibiotic if no improvement Assessment & Plan (04/23/2023 11:47 AM CDT): Will give a 7 day coarse of erythromycin ointment. Pt previously used prednisolone acetate, lifitegrast 5 % - can restart when ointment completed. Adrenal insufficiency 04/16/2023 Assessment & Plan (06/21/2023 8:02 PM CDT): Overall stable, continue fludrocortisone 0.2 mg daily, hydrocortisone 5 mg b.i.d.. We will need follow-up with endocrinology Assessment & Plan (06/18/2023 12:41 PM CDT): Stable, blood pressure managed well. Continue fludrocortisone 0.2 mg daily, hydrocortisone 5 mg b.i.d. Assessment & Plan (05/14/2023 12:52 PM CDT): Continue fludrocortisone although dose will be increased for blood pressure improvement, continue hydrocortisone 5 mg b.i.d. patient has not required sliding scale insulin in over a week, will discontinue Assessment & Plan (04/29/2023 10:46 AM CDT): Stable, continue hydrocortisone, fludrocortisone. Currently on SSI - but using rarely - would not order for home. D/w POA. Will need outpt endocrine f/u Assessment & Plan (04/22/2023 2:18 PM CDT): Continue fludrocortisone 0.1 mg daily, hydrocortisone 5 mg b.i.d. Recommend follow-up as an outpatient with endocrinology. Gastrointestinal hemorrhage, unspecified gastrointestinal hemorrhage type 04/07/2023 Assessment & Plan (04/18/2023 4:48 PM CDT): Hosp ds reviewed, reviewed lab to include cbc, cp Ordered cbc, bmp for Saturday, begin PT and OT Admit to SNF. This person needs admission to this facility. The patient is at risk of injury, illness and a requirement for a higher level of care without this service. The patient needs assistance from the nurses and care team for all activities of daily living including dressing, hygeine of person and toilet, safe transfer and mobility, dietary needs, medication administration, and grooming. The patient will need physical and occupational therapy to progress to a safer level of care. BPH (benign prostatic hyperplasia) 03/20/2023 Spondylolisthesis, lumbar region 03/20/2023 Restless legs syndrome 03/20/2023 Postcholecystectomy syndrome 03/20/2023 Personal history of COVID-19 03/20/2023 Morbid (severe) obesity due to excess calories 0 03/20/2023 Other nonspecific abnormal finding of lung field 03/20/2023 Chronic kidney disease (CKD) 03/20/2023 Chronic diastolic (congestive) heart failure Acute kidney failure, unspecified 03/20/2023 Calculus of bile duct withou t cholangitis or cholecystitis without obstruction 03/20/2023 Generalized weakness 03/13/2023 Assessment & Plan (06/20/2025 4:54 PM CDT): Orders: Ambulatory referral to Home Health; Future History of DVT (deep vein thrombosis) 02/27/2023 Assessment & Plan (06/21/2023 8:00 PM CDT): Stable, continue Xarelto. Assessment & Plan (04/22/2023 2:20 PM CDT): Has restarted Xarelto, no evidence of further lower GI bleeding. Hemoglobin stable. Continue to monitor labs Coronary artery calcification 02/25/2023 Anemia 02/25/2023 Assessment & Plan (06/21/2023 8:03 PM CDT): H/H stable. Recommend outpatient GI evaluation with colonoscopy Assessment & Plan (06/12/2023 12:45 PM CDT): Hemoglobin overall stable at 10.0, no active bleeding. Continue to monitor with iron supplementation Assessment & Plan (05/02/2023 12:11 PM CDT): Lab reviewed 3rd cbc, bmp, cont ferrous sulfate Assessment & Plan (04/29/2023 10:42 AM CDT): Hgb 9.6 - generally stable. Will monitor weekly. Assessment & Plan (04/18/2023 4:48 PM CDT): Cbc ordered Assessment & Plan (03/01/2023 10:34 AM CDT): H&H stable. Continue Iron. Elevated LFTs 02/12/2023 02/12/2023 Olecranon bursitis of right elbow 02/12/2023 02/12/2023 Seborrheic dermatitis 02/11/2023 Assessment & Plan (02/11/2023 5:14 PM CDT): Will order ketoconazole 2% cream b.i.d. for face, ketoconazole 2% shampoo for scalp Neck pain 02/11/2023 Assessment & Plan (05/21/2023 2:47 PM CDT): Pt with increased pain - will schedule tizanidine BID, rest, and prednisone. Assessment & Plan (02/11/2023 5:16 PM CDT): Apply lidocaine patch Benign prostatic hyperplasia without lower urinary tract symptoms 02/10/2023 Assessment & Plan (02/10/2023 12:06 PM CDT): On Flomax 0.4 mg daily Other cirrhosis of liver 02/10/2023 Assessment & Plan (03/01/2023 10:34 AM CDT): CT abdomen revealed nodular liver contour, suggesting cirrhosis/fibrosis. Patient was on spironolactone, placed on hold due to elevated creatinine. Follow up with PCP, GI Assessment & Plan (02/10/2023 12:13 PM CDT): CT abdomen revealed nodular liver contour, suggesting cirrhosis/fibrosis. Patient was on spironolactone, placed on hold due to elevated creatinine., may consider resuming med after discharge. Follow up with PCP, GI Slow transit constipation 02/08/2023 Assessment & Plan (02/08/2023 12:16 PM CDT): Will add Senna Plus 2 tabs at bedtime. Monitor for BM. CHF (congestive heart failur e), NYHA class I, chronic, combined 01/06/2023 Assessment & Plan (06/21/2023 7:57 PM CDT): Compensated, tolerating reduce Lasix 20 mg daily. Electrolytes and renal function stable. Assessment & Plan (06/18/2023 12:40 PM CDT): Compensated, tolerating Lasix. Continue reduced Lasix 20 mg daily. Continue to monitor weight, electrolytes, renal function. Follow-up labs scheduled in a.m. Assessment & Plan (03/01/2023 10:42 AM CDT): Patient presented in ER due to worsening of shortness of Breath. Per Cardiology treated with IV diuretics inpatient, due to elevated creatinine spironolactone not resumed, later transition to Lasix 40 mg oral b.i.d.. Monitor renal function, lytes, weight. Follow-up cardiology, Dr. Benoit. Assessment & Plan (02/25/2023 6:12 PM CDT): Compensated. Has fu with Cardiology today. Assessment & Plan (02/18/2023 1:44 PM CDT): Acute phase resolved. Compensated currently. Assessment & Plan (02/14/2023 1:06 PM CDT): Cr stable. Appears compensated. Continue to monitor. Assessment & Plan (02/10/2023 11:41 AM CDT): Patient presented in ER due to worsening of shortness of Breath. Per Cardiology treated with IV diuretics inpatient, due to elevated creatinine spironolactone not resumed, later transition to Lasix 40 mg oral b.i.d.. Monitor renal function, lytes, weight. Follow-up cardiology, Dr. Benoit in 1 week after dc(on 02/25/23) Assessment & Plan (02/08/2023 12:16 PM CDT): Appears compensated. Continue Lasix BID. Monitor. Acute deep vein thrombosis ( DVT) of proximal vein of right lower extremity 12/07/2022 Assessment & Plan (03/01/2023 10:39 AM CDT): Continue Xarelto. Assessment & Plan (02/14/2023 1:04 PM CDT): Xarleto resumed. Assessment & Plan (02/10/2023 11:44 AM CDT): On Xarelto 20 mg daily, hemoglobin 11.6, will place dose on hold as patient having hematuria. Monitor H&H Hyperglycemia 09/13/2022 Assessment & Plan (04/23/2023 11:51 AM CDT): A1c 5.1, accuchecks elevated 2/2 steroid dosing. Continue only SSI Assessment & Plan (09/24/2022 5:20 AM DATA VISUALIZATION DEVELOPER): Chronic Stable Diet controlled Chronic pain syndrome 05/10/2022 02/12/2023 Assessment & Plan (08/30/2025 5:41 AM DATA VISUALIZATION DEVELOPER): Chronic rhinitis 05/10/2022 02/12/2023 Other chronic allergic conjunctivitis 05/10/2022 02/12/2023 Assessment & Plan (06/21/2023 8:02 PM CDT): Follow-up with ophthalmology, continue ketorolac, prednisolone Assessment & Plan (05/21/2023 2:49 PM CDT): Follows with Ophthalmology, ordered ketorolac t.i.d. through 05/23. Continue prednisolone Assessment & Plan (02/27/2023 4:59 PM CDT): Patient followed up with Ophthalmology yesterday. Ordered Xiidra 5% eyedrops, prednisolone eyedrops x7 days Sarcoidosis, unspecified 05/10/2022 Insomnia 05/08/2022 02/12/2023 Generalized muscle weakness 05/04/2022 0405/2023 Assessment & Plan (04/18/2023 4:51 PM CDT): Begin pt and ot His goal is to return home Oral aphthae 04/04/2022 Assessment & Plan (02/25/2023 6:11 PM CDT): Sores improving. Continue to have poor po intake however. Continue magic mouthwash. Fu at end of week to see if needs extended. Assessment & Plan (02/22/2023 11:48 AM CDT): Recurrent. Believe needs to see ENT outpt. WIll start Diflucan & Magic Mouthwash. Poor intake s/t. Encourage good mouth hygiene & soft/liquid foods. Assessment & Plan (04/10/2022 6:55 PM CDT): New Order magic mouthwash and diflucan RA (rheumatoid arthritis) 09/10/2020 Assessment & Plan (06/20/2025 4:54 PM CDT): Orders: Ambulatory referral to Home Health; Future Assessment & Plan (04/28/2024 2:47 PM CDT): Patient's RA managed by [facility] [facility]. Assessment & Plan (10/10/2023 2:00 PM DATA VISUALIZATION DEVELOPER): - Rinvoq held - Lyrica, Fludrocortisone, Zanaflex held - Citalopram continued - Endo consulted Assessment & Plan (06/21/2023 8:05 PM CDT): Pain is overall. Since starting Rinvoq. Continue scheduled Lyrica, reduce tizanidine, p.r.n. Tylenol and p.r.n. Percocet. Follow up as an outpatient with Rheumatology Assessment & Plan (06/18/2023 12:39 PM CDT): Pain significantly improved, patient has made progress in therapy, anticipating discharge this weekend. Continue Rinvoq, scheduled Lyrica, scheduled tizanidine, p.r.n. Tylenol and Percocet. Follow up with Rheumatology as an outpatient Assessment & Plan (06/12/2023 12:46 PM CDT): Pain much improved, almost back to baseline. Patient feels that his physical function is back to baseline. Anticipating discharge on 06/17/2023. Continue p.r.n. Tylenol, p.r.n. Percocet, scheduled Lyrica, daily Rivoq, b.i.d. tizanidine. Follows with Rheumatology Assessment & Plan (06/10/2023 7:31 PM CDT): Pain continues to improve, patient is making progress in therapy. Anticipate discharge in the coming weeks. Assessment & Plan (06/04/2023 12:46 PM CDT): Pt pain is improving. Participation has improved in therapy, about back to baseline functional status. Continue Rinvoq, prednisone taper. Will need outpt rheumatology f/u Assessment & Plan (05/27/2023 10:34 PM CDT): Pain is already improved with long prednisone taper as well as initiation of Rinvoq. Continue to participate in therapy, making slow improvements. Assessment & Plan (05/21/2023 2:45 PM CDT): Pt returned from Rheumatology office - order for prednisone taper and Rinvoq 15mg daily. Per family pt is supposed to f/u in 3 weeks. Pt did not receive any infusion. Attempted to call office to get clarification of orders but there is no answer, no way to leave a message for call back. Assessment & Plan (05/14/2023 12:53 PM CDT): Pain and stiffness persist - pt has a rheumatology office visit scheduled for 05/21 (awaiting prior authorization for infusion). Follows with Dr. Oliva. [phone] Assessment & Plan (05/08/2023 9:23 PM CDT): Patient's pain has worsened over the weekend, having more difficulty participating in therapy due to joint pain (affecting almost all joints). director of medical services working on establishing an appointment for Rheumatology visit for normal infusion. Still awaiting transportation and appointment Assessment & Plan (04/22/2023 2:18 PM CDT): Pain generally controlled, continue Lyrica, Percocet. Patient is hopeful to discharge soon to restart biologics. Continue steroids for now. Assessment & Plan (04/18/2023 4:51 PM CDT): He saw his new rheum yest and he had op lab that is pending He uses lyrica, percocet (rx's sent) Assessment & Plan (03/01/2023 10:33 AM CDT): Continue outpt fu with Rheum & infusions. Assessment & Plan (02/22/2023 11:52 AM CDT): S/p infusion this week. Patient reports no changes to pain/joint stiffness at this time. Assessment & Plan (02/18/2023 1:46 PM CDT): Infusion scheduled for 02/19. WBC mildly elevated. Likely reactive. Assessment & Plan (02/14/2023 1:00 PM CDT): Follows with Dr. Tipton's office, receiving Orencia monthly - missed 01/15 dose d/t hospital admission. Is suppose to go tomorrow. Unaware if team knows & authorized to receive - have notified. Do believe he would benefit from infusion however as his RA is severe & is unable to use Left arm d/t currently. Assessment & Plan (02/10/2023 12:03 PM CDT): Patient has a history of rheumatoid arthritis multiple sites, was on methotrexate 20 mg weekly, leflunomide 20 mg, folic acid 2 mg daily, placed on hold since August 2021, due to fracture left ankle followed by surgery and left foot graft. Per Dr. Saeed peralta while inpatient, restarted on leflunomide and methotrexate at prior doses, in addition to 40 mg prednisone for 2 weeks, then dropped to 20 mg qD thereafter until follow-up. Currently patient not on any med. Assessment & Plan (09/24/2022 5:21 AM DATA VISUALIZATION DEVELOPER): Chronic Stable Follow up with pin chaser Assessment & Plan (05/25/2022 8:57 PM CDT): Sx well managed back on multi med therapy, continue daily prednisone and leflunomide, weekly methotrexate, cont PT/OT, rheum appt pending Assessment & Plan (05/15/2022 10:09 PM CDT): Patient has a history of rheumatoid arthritis multiple sites, was on methotrexate 20 mg weekly, leflunomide 20 mg, folic acid 2 mg daily, placed on hold since August 2021, due to fracture left ankle followed by surgery and left foot graft. Per Dr. Saeed peralta while inpatient, restarted on leflunomide and methotrexate at prior doses, in addition to 40 mg prednisone for 2 weeks, then dropped to 20 mg qD thereafter until follow-up. Continue tramadol prn. Continue PT/OT Assessment & Plan (04/10/2022 6:57 PM CDT): Follow up with rheumatology Assessment & Plan (09/27/2021 9:26 AM DATA VISUALIZATION DEVELOPER): Assessment/plan: He has been off his rheumatologic medications for some time now due to the wound, he is having more pain. I discussed if this continues to not heal which further delays his medications a may be best to perform a below-knee amputation. 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 Assessment & Plan (02/10/2023 12:06 PM CDT): On Lyrica 100 mg t.i.d. Assessment & Plan (09/24/2022 5:21 AM DATA VISUALIZATION DEVELOPER): Chronic Stable Cont lyrica Assessment & Plan (05/15/2022 10:23 PM CDT): Due to increased somnolence while inpatient, Lyrica dose decreased from 100-75 mg t.i.d.. Assessment & Plan (10/01/2020 8:29 PM DATA VISUALIZATION DEVELOPER): Severely uncontrolled Increase lyrica to 100mg tid Assessment & Plan (09/10/2020 5:24 PM DATA VISUALIZATION DEVELOPER): Worsening Start lyrica Weight loss 06/13/2020 Assessment & Plan (09/10/2020 5:32 PM DATA VISUALIZATION DEVELOPER): Persistent Refer to hem/onc Assessment & Plan (06/13/2020 9:03 PM CDT): Likely secondary to not eating Order lab Refer to GI Chronic fatigue 06/13/2020 Assessment & Plan (06/13/2020 8:42 PM CDT): New To order labs Primary osteoarthritis of left knee 04/20/2020 Tobacco abuse 02/01/2020 Assessment & Plan (09/27/2021 9:25 AM DATA VISUALIZATION DEVELOPER): Strongly suggested smoking cessation. Assessment & Plan (08/31/2021 1:23 PM CDT): Assessment/plan: I had a 5 minutes conversation with the patient regarding the importance of tobacco cessation for perfusion and wound healing. We discussed patches vs medication such as Chantix or Wellbutrin. At this point he is not wishing to pursue tobacco cessation. Assessment & Plan (02/01/2020 10:28 AM CDT): Patient advised on smoking cessation. Counseled on ways to cut back and advised to call office if would like advice on methods and medications used to help quit smoking. This is a chronic problem and would always recommend reducing amount of smoking in hopes of quitting completely. Spent 3-10 minutes Multiple thyroid nodules 10/27/2019 Assessment & Plan (10/27/2019 1:45 PM DATA VISUALIZATION DEVELOPER): Refer to general surgery Chronic pain of both knees 10/26/2019 Assessment & Plan (10/26/2019 12:39 PM DATA VISUALIZATION DEVELOPER): Refer to ortho Cont mobic Primary osteoarthritis involving multiple joints 08/31/2019 Assessment & Plan (09/22/2019 2:53 PM DATA VISUALIZATION DEVELOPER): Order Mobic Wrist arthritis 07/20/2019 Sleep disorder 05/19/2019 Assessment & Plan (02/27/2023 5:01 PM CDT): Dr. Cantu recommended patient to follow up for split sleep study after discharge to rule out ARABELLA Chronic cough 05/19/2019 Non-seasonal allergic rhinitis due to pollen Nicotine dependence 05/19/2019 Assessment & Plan (05/15/2022 10:25 PM CDT): Patient is daily smoker. Declined nicotine patch, continue Trelegy Ellipta daily Assessment & Plan (06/13/2020 8:47 PM CDT): Patient advised on smoking cessation. Counseled on ways to cut back and advised to call office if would like advice on methods and medications used to help quit smoking. This is a chronic problem and would always recommend reducing amount of smoking in hopes of quitting completely. Spent 3-10 minutes Simple chronic bronchitis 05/19/2019 Pulmonary nodules 05/11/2019 Adult general medical exam 03/03/2019 Carpal tunnel syndrome of left wrist 11/11/2017 Primary osteoarthritis of fi rst carpometacarpal joint of left hand 10/07/2017 Depression 11/05/2016 Assessment & Plan (06/12/2023 12:47 PM CDT): Mood has improved significantly as patient's functional status improved. Continue Wellbutrin, Celexa. Hyponatremia resolved. Assessment & Plan (05/14/2023 12:55 PM CDT): Mood depressed but stable. Continue wellbutrin and celexa. Will need to monitor and pt has mild hyponatremia with a sodium of 132 - repeat labs 05/20 Assessment & Plan (05/08/2023 9:49 PM CDT): Patient's mood is depressed with increased discomfort, offered support. Continue Wellbutrin, Celexa, p.r.n. Xanax Assessment & Plan (04/23/2023 11:53 AM CDT): Mood is overall stable, continue bupropion, celexa and prn xanax Assessment & Plan (04/18/2023 4:51 PM CDT): Cont celexa and welbutrin Assessment & Plan (02/10/2023 12:05 PM CDT): On Wellbutrin 150 mg daily citalopram 40 mg. Continue supportive care. Assessment & Plan (05/18/2022 1:22 PM CDT): Continue buroprion, citalopram, mood and affect appropriate today, encourage out of bed activity, PT/OT as tolerated Assessment & Plan (05/15/2022 10:11 PM CDT): Mood currently stable, denies any SI/HI. Continue home med Wellbutrin XL 150 mg daily, Celexa 20 mg b.i.d. Assessment & Plan (06/28/2021 4:25 PM CDT): New Start wellbutrin Assessment & Plan (06/13/2020 8:25 PM CDT): Stable Cont celexa Anxiety 02/13/2016 Assessment & Plan (04/18/2023 4:49 PM CDT): Cont xanax, rx sent Assessment & Plan (02/10/2023 12:05 PM CDT): Continue Celexa 40 mg, Xanax 0.5 mg b.i.d. p.r.n. Assessment & Plan (05/25/2022 9:00 PM CDT): Comfort measures provided, struggles with diagnosis and limitations to his ability, continue supportive care,, daily citalopram PRN xanax, could benefit from counseling. Assessment & Plan (05/15/2022 10:22 PM CDT): Symptoms controlled with Xanax 0.5 mg b.i.d. p.r.n. Assessment & Plan (04/10/2022 6:56 PM CDT): Stable Cont celexa, xanax Assessment & Plan (04/14/2021 5:06 PM CDT): Stable Cont Celexa, xanax Assessment & Plan (09/10/2020 5:30 PM DATA VISUALIZATION DEVELOPER): Stable Cont Celexa, xanax Assessment & Plan (06/13/2020 8:26 PM CDT): Stable Cont xanax prn Assessment & Plan (02/01/2020 10:28 AM CDT): Stable Cont celexa, xanax Assessment & Plan (09/22/2019 2:53 PM DATA VISUALIZATION DEVELOPER): Stable Cont celexa, xanax Assessment & Plan (05/12/2019 11:06 AM CDT): Stable Cont celexa, xanax Assessment & Plan (03/13/2019 1:31 PM CDT): Cont celexa, xanax CKD (chronic kidney disease) 02/13/2016 Assessment & Plan (02/18/2023 1:45 PM CDT): Cr stable. Continue routine following. Assessment & Plan (02/14/2023 1:04 PM CDT): Cr stable. Continue to monitor. Has fu with Dr. Banuelos 02/20. Likely can reschedule for after dc. Assessment & Plan (02/10/2023 12:04 PM CDT): Creatinine 0.8 (8 mos ago)>>> 1.6 improving. Monitor renal function, adjust meds accordingly. Follows up with Nephrology, Dr. Craven outpatient COPD (chronic obstructive pulmonary disease) Assessment & Plan (10/07/2023 1:51 PM DATA VISUALIZATION DEVELOPER): - Home Trelegy, Singulair continued - Home Lasix held - Supplemental O2 for SpO2 >90% Assessment & Plan (06/21/2023 8:17 PM CDT): Pulmonary status stable, continue supportive care Assessment & Plan (04/18/2023 4:52 PM CDT): Monitor for resp distress or hypoxia Assessment & Plan (03/01/2023 10:32 AM CDT): Continue to fu with Pulm outpt. Assessment & Plan (02/27/2023 5:02 PM CDT): Patient returned from Pulmonary appointment, will follow-up in 1 month to get check PFTs and IgE. Continue with Trelegy Ellipta, 1 puff daily on a regular basis and albuterol HFA on as needed basis. Would need low-dose CT scan of the chest next year in December of 2023. Assessment & Plan (02/14/2023 1:01 PM CDT): Resp status stable. Assessment & Plan (04/14/2021 5:05 PM CDT): stble Cont wendy singulair Assessment & Plan (09/10/2020 8:57 AM DATA VISUALIZATION DEVELOPER): stble Cont trelematty singulair Assessment & Plan (06/13/2020 8:23 PM CDT): stble Cont trelegy, singulair Assessment & Plan (02/01/2020 10:22 AM CDT): stble Cont wendy singulair Assessment & Plan (09/22/2019 2:53 PM DATA VISUALIZATION DEVELOPER): stble Cont trecharles, singulair Assessment & Plan (05/12/2019 11:05 AM CDT): Cont mauricio nguyenulair Order CT chest Assessment & Plan (03/13/2019 1:30 PM CDT): COPD is unchanged. Medication changes per orders. Cont wendy alejandra Refer to pulmonary GERD (gastroesophageal reflux disease) 6 Assessment & Plan (10/07/2023 1:47 PM DATA VISUALIZATION DEVELOPER): - home prilosec held - Protonix provided Assessment & Plan (09/24/2022 5:21 AM DATA VISUALIZATION DEVELOPER): Chronic Stable Cont protonix Assessment & Plan (05/15/2022 10:22 PM CDT): On Protonix 40 mg b.i.d. Assessment & Plan (04/14/2021 5:05 PM CDT): Stable Cont protonix Assessment & Plan (09/10/2020 5:24 PM DATA VISUALIZATION DEVELOPER): Stable Cont protonix Assessment & Plan (09/22/2019 2:54 PM DATA VISUALIZATION DEVELOPER): Stable Cont protonix Assessment & Plan (05/12/2019 11:05 AM CDT): Stable Cont protonix Assessment & Plan (03/13/2019 1:31 PM CDT): Cont Protonix Hyperlipidemia 02/13/2016 Assessment & Plan (08/30/2025 5:41 AM DATA VISUALIZATION DEVELOPER): Chronic Stable Cont atorvastatin Goal: TC<200, LDL<100, TG<150 Assessment & Plan (06/20/2025 4:54 PM CDT): Assessment & Plan (04/28/2024 2:25 PM CDT): Mother of the patient states that patient has not been on it for several months due to not being able to fill medication. Ordered a lipid panel to get a baseline. Patient and mother verbalized understanding that if elevated we will repeat ordered the medication. Mother is not sure if the lipid profile that was posted 9 months ago if patient was taking the medication or not at that time. Assessment & Plan (10/07/2023 1:49 PM DATA VISUALIZATION DEVELOPER): - Statin continued Assessment & Plan (02/10/2023 11:43 AM CDT): On Lipitor 20 mg daily Assessment & Plan (09/24/2022 5:19 AM DATA VISUALIZATION DEVELOPER): Stable Cont niaspan, lipitor Follow low cholesterol diet Goal: TC<200, LDL<100, TG<150 Assessment & Plan (05/25/2022 8:59 PM CDT): Chronic, continue statin HS Assessment & Plan (05/15/2022 10:21 PM CDT): Continue home med Lipitor 20 mg daily Assessment & Plan (04/10/2022 6:53 PM CDT): Stable Cont niaspan, lipitor Follow low cholesterol diet Goal: TC<200, LDL<100, TG<150 Assessment & Plan (10/23/2021 2:56 AM DATA VISUALIZATION DEVELOPER): Stable Cont niaspan, lipitor Follow low cholesterol diet Goal: TC<200, LDL<100, TG<150 Assessment & Plan (08/30/2021 11:20 AM CDT): Assessment/plan: Recommend statin therapy. Assessment & Plan (04/14/2021 5:06 PM CDT): Stable Cont niaspan, lipitor Follow low cholesterol diet Assessment & Plan (09/10/2020 5:25 PM DATA VISUALIZATION DEVELOPER): Stable Cont niaspan, lipitor Follow low cholesterol diet Assessment & Plan (06/13/2020 8:21 PM CDT): Stable Cont niaspan, lipitor Follow low cholesterol diet Assessment & Plan (02/01/2020 10:22 AM CDT): Stable Cont niaspan, lipitor Follow low cholesterol diet Assessment & Plan (10/27/2019 1:45 PM DATA VISUALIZATION DEVELOPER): Stable Cont niaspan, lipitor Assessment & Plan (10/26/2019 12:38 PM DATA VISUALIZATION DEVELOPER): Stable Cont niaspan, lipitor Assessment & Plan (09/22/2019 2:53 PM DATA VISUALIZATION DEVELOPER): Stable Cont niaspan, lipitor Assessment & Plan (05/12/2019 11:05 AM CDT): Stable Cont niaspan, lipitor Assessment & Plan (03/13/2019 1:30 PM CDT): Lipid abnormalities are stable. cont lipitor, niaspam Lipids will be reassessed in 6 months. Primary hypertension 02/13/2016 Assessment & Plan (04/28/2024 2:28 PM CDT): - Home lasix, Niacin, propranolol held - VS monitored Assessment & Plan (10/07/2023 1:50 PM DATA VISUALIZATION DEVELOPER): - Home lasix, Niacin, propranolol held - VS monitored Assessment & Plan (06/21/2023 7:57 PM CDT): Blood pressure stable, continue Lasix. Propranolol has been discontinued Assessment & Plan (06/10/2023 7:27 PM CDT): Blood pressure stable, continue Lasix, fludrocortisone. We will discontinue propranolol Assessment & Plan (06/04/2023 12:47 PM CDT): BP improved, no dizziness. Continue off propranolol. Continue lasix, fludrocortisone 0.2 mg daily Assessment & Plan (05/27/2023 10:36 PM CDT): Blood pressure controlled, continue Lasix, fludrocortisone 0.2 mg daily. Propranolol will remain on hold Assessment & Plan (05/21/2023 2:48 PM CDT): BP much improved, remains controlled. Continue lasix 20mg daily, fludrocortisone 0.2 mg daily, continue to hold propranolol Assessment & Plan (05/14/2023 12:50 PM CDT): BP continues to be low. Will hold propranolol and reduce lasix to 20mg daily. Will increase fludrocortisone to 0.2 mg daily Assessment & Plan (05/08/2023 9:48 PM CDT): Blood pressure now lower, will hold Lasix for 1 day, reduce dose to 40 mg daily. Reduce propranolol to 10 mg b.i.d.. Continue to monitor make adjustments if needed. Could consider increasing fludrocortisone to improve blood pressure if needed Assessment & Plan (04/29/2023 10:45 AM CDT): BP overall stable, continue propranolol, lasix Assessment & Plan (02/18/2023 1:44 PM CDT): BP stable. Soft at times. Continue Lasix 40mg BID, Propranolol 10mg TID. Assessment & Plan (02/10/2023 11:43 AM CDT): Blood pressure soft. On propranolol 10 mg t.i.d., Lasix 40 mg b.i.d.. Aldactone on hold due to elevated creatinine. Monitor blood pressure, adjust meds accordingly Assessment & Plan (09/24/2022 5:19 AM DATA VISUALIZATION DEVELOPER): Stable Cont toprol Goal: SBP<140, DBP<90 Assessment & Plan (05/25/2022 8:58 PM CDT): BP logs reviewed and stable, continue metoprolol 25mg daily Assessment & Plan (05/15/2022 10:21 PM CDT): Blood pressure and heart rate at times slow. Will reduce Toprol-XL dose from 50- 25 mg daily. Monitor blood pressure, adjust med to meet goal SBP less than 140 Assessment & Plan (04/10/2022 6:54 PM CDT): Stable Cont toprol Goal: SBP<140, DBP<90 Assessment & Plan (10/23/2021 2:56 AM DATA VISUALIZATION DEVELOPER): Stable Cont toprol Goal: SBP<140, DBP<90 Assessment & Plan (09/27/2021 9:26 AM DATA VISUALIZATION DEVELOPER): Assessment/plan: Continue metoprolol. Assessment & Plan (08/30/2021 11:21 AM CDT): Assessment/plan: Continue metoprolol. Assessment & Plan (06/28/2021 4:28 PM CDT): Stable Cont toprol Goal: SBP<140, DBP<90 Assessment & Plan (04/14/2021 5:05 PM CDT): Stable Cont toprol Assessment & Plan (10/01/2020 8:30 PM DATA VISUALIZATION DEVELOPER): Stable Cont toprol Assessment & Plan (09/10/2020 8:57 AM DATA VISUALIZATION DEVELOPER): Stable Cont toprol Assessment & Plan (06/13/2020 8:22 PM CDT): Stable Cont toprol Assessment & Plan (02/01/2020 10:25 AM CDT): Stable Cont toprol Assessment & Plan (09/22/2019 2:53 PM DATA VISUALIZATION DEVELOPER): Stable Cont toprol Assessment & Plan (05/12/2019 11:05 AM CDT): Stable Cont toprol Assessment & Plan (03/13/2019 1:31 PM CDT): Hypertension is stable. Continue current medications. Blood pressure will be reassessed at the next regular appointment Cont toprol. Hypothyroidism 02/13/2016 Assessment & Plan (06/20/2025 4:54 PM CDT): Assessment & Plan (10/11/2023 12:56 PM DATA VISUALIZATION DEVELOPER): - Levothyroxine 175mcg daily continued - TSH 41.70 - T4 0.T4 - Endocrine consult: recommended not treating adrenal insufficiency. - 10/11: Levothyroxine 150mcg daily Assessment & Plan (06/21/2023 8:00 PM CDT): Stable, continue increase Synthroid 175 mcg Assessment & Plan (03/01/2023 10:39 AM CDT): TSH/T4 elevated. Synthroid increased to 175mcg. Recheck level in March for fu. Assessment & Plan (02/11/2023 5:14 PM CDT): TSH 13.29 (was 0.87 6 mos ago)>>> rechecked today improved to 6.95. Continue Synthroid 175 mg daily. Follow up with PCP outpatient to recheck TSH in 6-8 weeks Assessment & Plan (09/24/2022 5:20 AM DATA VISUALIZATION DEVELOPER): Chronic Cont levothyroxine Assessment & Plan (05/15/2022 10:13 PM CDT): TSH 34.5, T4 1.32 on 04/13/22. Synthroid increased to 150 mcg. To recheck TSH level in 2-3 weeks Assessment & Plan (04/10/2022 6:54 PM CDT): Uncontrolled Increase levothyroxine to 150mcg daily Recheck TSH in 1 month Assessment & Plan (10/23/2021 2:56 AM DATA VISUALIZATION DEVELOPER): Stable Cont Levothyroxine Assessment & Plan (06/28/2021 4:24 PM CDT): Stable Cont Levothyroxine Assessment & Plan (04/14/2021 5:06 PM CDT): Stable Cont Levothyroxine Assessment & Plan (10/01/2020 8:30 PM DATA VISUALIZATION DEVELOPER): Stable Cont Levothyroxine Assessment & Plan (09/10/2020 5:25 PM DATA VISUALIZATION DEVELOPER): Stable Cont Levothyroxine Assessment & Plan (06/29/2020 11:42 AM CDT): TSH stable Assessment & Plan (06/13/2020 8:23 PM CDT): Stable Cont levothyroxine alternating doses Assessment & Plan (02/01/2020 10:27 AM CDT): Stable Cont levothyroxine alternating doses Assessment & Plan (10/27/2019 1:45 PM DATA VISUALIZATION DEVELOPER): Change levothyroxine to 137mcg every day Recheck tsh in 1 month Assessment & Plan (10/26/2019 12:38 PM DATA VISUALIZATION DEVELOPER): Level now too low Change to levothyroxine 125mcg on mon and wed and 137 other days Recheck tsh in 1 month Assessment & Plan (09/22/2019 2:52 PM DATA VISUALIZATION DEVELOPER): Stable Cont synthroid Assessment & Plan (05/12/2019 11:05 AM CDT): Stable Cont synthroid Assessment & Plan (03/13/2019 1:31 PM CDT): Cont synthroid Acute cholecystitis Palliative care encounter Resolved Problems Problem Noted Date Diagnosed Date Resolved Date Acute traumatic pain 10/07/2023 025 Assessment & Plan (10/07/2023 3:42 PM DATA VISUALIZATION DEVELOPER): - Tylenol 1g q6h - Hold Lyrica 100mg TID - Lidocaine patch - Oxycodone 5mg q4h PRN - Tizanidine 4mg TID PRN Shock 04/16/2023 05/02/2023 Confusion 02/27/2023 03/01/2023 Assessment & Plan (02/27/2023 5:02 PM CDT): Will do UA to rule out UTI. Generalized edema 02/25/2023 03/01/2023 Hypokalemia 02/14/2023 02/18/2023 Assessment & Plan (02/14/2023 1:07 PM CDT): Continue supplement. Improved. Abrasion of skin with infection 02/12/2023 02/14/2023 Bruising 02/12/2023 02/12/2023 02/14/2023 Oral candidiasis 02/12/2023 02/12/2023 02/14/2023 Visual hallucinations 02/12/2023 02/12/20232022 Gross hematuria 02/10/2023 02/18/2023 Assessment & Plan (02/14/2023 1:07 PM CDT): Resolved. Restart Xarelto. H&H stable. Ucx negative. Assessment & Plan (02/10/2023 12:14 PM CDT): Patient has hematuria, hemoglobin stable. Will place Xarelto on hold. Follows up with Urology outpatient, next appointment with Dr. Craven on 02/12/2023 Urinary retention 02/08/2023 02/18/2023 Assessment & Plan (02/14/2023 1:03 PM CDT): Gayle removed with Dr. Craven 02/12. Voiding on own. Assessment & Plan (02/08/2023 12:08 PM CDT): Gayle initally placed by [facility] for retention. Presented to [facility] for removal s/t pain. Dx with UTI & tx. Attempted to remove gayle but failed voiding trial and reinsterted. Has urology appt 02/12. Will start on flomax & attempt voiding trial next week. Congestive heart failure, un specified HF chronicity, unspecified heart failure type 02/04/2023 02/14/2023 Need for vaccination 09/24/2022 023 Iron deficiency anemia rolando mcgregor to inadequate dietary iron intake 05/13/2022 Assessment & Plan (02/10/2023 12:07 PM CDT): Hemoglobin 11.3. Has hematuria, though H&H relatively stable. 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 05/10/2022 02/12/2023 02/14/2023 Steroid-induced hyperglycemia 05/09/2022 02/12/2023 02/14/2023 Moderate episode of recurren t major depressive disorder 05/08/2022 02/12/2023 02/14/2023 Severe protein-calorie malnutrition 05/05/202202/1210/08/2023 Assessment & Plan (02/22/2023 11:51 AM CDT): RD to consult Joint pain 05/04/2022 02/12/2023 02/14/2023 Redness of both eyes 05/04/2022 02/12/2023 023 Hyponatremia 04/04/2022 02/08/2023 Assessment & Plan (04/10/2022 6:56 PM CDT): Will recheck bmp Open wound of left foot 12/22/202101/26 Overview (12/22/2021): Added automatically from request for surgery [id number] COVID-19 virus infection 11/15/2021 Cellulitis 09/19/2021 09/24/2021 Ulcer of left foot with fat layer exposed 09/19/2021 02/08/2023 Assessment & Plan (09/27/2021 9:25 AM DATA VISUALIZATION DEVELOPER): Assessment: His surgical incision is clean and dry, there is a small area of exposed tendon. This is being managed by Dr. Chua. From a vascular surgery standpoint he should have adequate circulation to heal this. I discussed the importance of close monitoring and tobacco cessation. Plan: He can follow-up with me in 3-6 months. Non-healing ulcer of left foot 08/30/2021 02/08/2023 Assessment & Plan (08/30/2021 11:20 AM CDT): Assessment: No evidence of perfusion issues to the left lower extremity. Wound healing likely limited and delayed due to rheumatoid arthritis treatments. Plan: I had a long discussion with the patient regarding this wound. Since it has only been present for about a month and not causing sepsis I think jumping to an amputation is extreme at this point. He will follow-up with Dr. Munoz and continue local wound care as well as follow-up with me in 1 month. We did discuss if this wound progresses he may require a below-knee amputation. Multiple closed fractures of ribs of left side 06/28/2021 02/08/2023 Assessment & Plan (06/28/2021 4:27 PM CDT): New Routine healing No heavy lifting for 4-6 weeks Leukocytosis 09/10/2020 03/01/2023 Assessment & Plan (02/25/2023 6:12 PM CDT): Remains elevated. No s/s of infection. Continue to monitor closely. Assessment & Plan (02/22/2023 11:53 AM CDT): Likely reactive. Continue to monitor. Trending down. Assessment & Plan (09/10/2020 5:26 PM DATA VISUALIZATION DEVELOPER): Likely inflammatory reaction Monitor cbc Opacified maxillary sinus 12/14/2019 Assessment & Plan (12/21/2019 2:26 PM DATA VISUALIZATION DEVELOPER): Refer to ENT Other bursal cyst, left hand 10/26/2019 02/08/2023 Assessment & Plan (10/26/2019 12:39 PM DATA VISUALIZATION DEVELOPER): Refer to hand specialist Lymphadenopathy, axillary 05/19/2019 Right hip pain 05/11/2019 02/08/2023 Biventricular congestive heart failure 02/14/2023 Encounters Date Type Department Care Team Description 09/30/2025 Orders Only [facility] [address] [place] [id number] Peyton Burris MD 09/03/[address] [place] [address] Peyton Burris MD Surgical Clearance 09/01/2025 Orders Only [facility] [address] [place] [address] Scanning, Provider 08/24/2025 10:30 AM CDT Telemedicine [address] [place] [address] Peyton Burris MD Pure hypercholesterolemia (Primary Dx); Chronic pain syndrome [address] [place] [phone] Peyton Burris MD Medication Request 08/12/[address] [place] [phone] Peyton Burris MD Medical Records Request 08/04/[address] [place] [phone] Peyton Burris MD Medical Question/Miscellaneous 08/04/2025 Orders Only [address] [place] [phone] Peyton Burris MD 08/02/[address] [place] [address] Peyton Burris MD Lab order question. 07/29/2025 Telephone [facility] Nephrology at [place] [id number] [facility] [address] [place] [address] Bo Banuelos MD from Last 3 Months Immunizations Immunization Administration Dates Next Due DTaP 09/15/2015 Influenza A Monovalent (H5n1 ), Adjuvanted, 2013 08/06/2023 Influenza, Quadrivalent, Hig h Dose, Preservative Free, Intrr 09/13/2022,09/24/2021 Influenza, Quadrivalent, Spl it, Preservative Free, Intramuscular 07/19/2020 Influenza, Unspecified 07/28/2024(Deferr ed: Patient Refused),08/28/2023,2020, 020 PPD TEST 02/21/2023,02/08/2023 Pfizer SARS-CoV-2 Monovalent Vaccination (12+ Yrs) PURPLE 07/19/2021,06/28/2021 Tdap 08/28/2024,09/15/2015 Surgical History Surgery Date Site/Laterality Comments ROTATOR CUFF REPAIR Bilateral CARPAL TUNNEL RELEASE 10/28/2017 - 10/27/2018 Left DEBRIDEMENT FOOT 09/21/2021 Left I & D left foot FOOT SURGERY 10/28/2020 - 10/27/2021 Left DEBRIDEMENT FOOT 12/29/2021 Left Debridement wound left foot w [facility] CHOLECYSTECTOMY 12/26/2022 - 01/25/2023 Medical History Medical History Date Comments HTN (hypertension) Hyperlipidemia GERD (gastroesophageal reflux disease) Anxiety Hypothyroidism COPD (chronic obstructive pu lmonary disease) Retrolisthesis of vertebrae Retrolisthesis of vertebrae Osteoarthritis of lumbar spine Arthritis Rotator cuff tear arthropath y of left shoulder History of COVID-19 11/14/2021 no hospitali zation, no residual Walker as ambulation aid RLS (restless legs syndrome) Wound of foot left foot Wears glasses Rheumatoid arthritis (HCC) Morbid obesity (HCC) CHF (congestive heart failur e), NYHA class I, chronic, diastolic (HCC) Glaucoma Family History Medical History Relation Name Comments Tongue cancer Brother Heart disease Father No Known Problems Mother HIV Son 1 ADD / ADHD Son 2 Depression Son 2 Heart disease Son 2 Mental illness Son 2 Obesity Son 2 Relation Name Status Comments Brother Alive Father Mother Alive Son 1 Son 2 Alive Social History Tobacco Use Types Packs/Day Years Used Date Smoking Tobacco: Former Cigarettes 0.1 40 0 10/28/1994 - 10/2021 Smokeless Tobacco: Never Alcohol Use Standard Drinks/Week Comments Never 0 (1 standard drink = 0.6 oz pur e alcohol) Social Connection and Isolation Panel Answer Date Recorded In a typical week, how many times do you talk on the phone with family, friends, or neighbors? More than three times a week 10/08/2023 How often do you get togethe r with friends or relatives? More than three times a week 10/08/2023 How often do you attend chur ch or episcopal services? Never 10/08/2023 Do you belong to any clubs o r organizations such as mu-ism groups, unions, fraternal or athletic groups, or school groups? No 10/08/2023 How often do you attend meet ings of the clubs or organizations you belong to? Never 10/08/2023 Are you , , di vorced, , never , or living with a partner? 10/08/2023 AUDIT-C Answer Date Recorded Q1: How often do you have a drink containing alcohol? Never 01/25/2025 Q2: How many drinks containi ng alcohol do you have on a typical day when you are drinking? Patient does not drink Frequency of Binge Drinking Not on file 12/28 Overall Financial Resource Strain (CARDIA) Answe r Date Recorded How hard is it for you to pa y for the very basics like food, housing, medical care, and heating? Not very hard 10/08/2023 PHQ-2 Answer Date Recorded PHQ-2 Total Score (If total score is 3 or more points, staff should administer the PHQ-9) 3 07/13/2025 PRAPARE - Transportation Answer Date Re corded In the past 12 months, has l ack of transportation kept you from medical appointments or from getting medications? Yes 09/27 In the past 12 months, has l ack of transportation kept you from meetings, work, or from getting things needed for daily living? Yes 10/08/2023 Housing Stability Vital Sign Answer Brad e Recorded In the last 12 months, was t here a time when you were not able to pay the mortgage or rent on time? No 10/08/2023 In the last 12 months, how many places have you lived? 1 10/08/2023 In the last 12 months, was t here a time when you did not have a steady place to sleep or slept in a senior care (including now)? No 10/08/2023 PHQ-9 Answer Date Recorded PHQ-9 Total Score 21 07/13/2025 Social Connection and Isolation Panel Answer Date Recorded In a typical week, how many times do you talk on the phone with family, friends, or neighbors? Never 07/01/2025 How often do you get together with friends or re latives? Never 07/01/2025 How often do you attend mu-ism or episcopal serv ices? Never 07/01/2025 Do you belong to any clubs o r organizations such as mu-ism groups, unions, fraternal or athletic groups, or school groups? No 07/01/2025 How often do you attend meet ings of the clubs or organizations you belong to? Never 07/01/2025 Are you , , di vorced, , never , or living with a partner? 07/01/2025 Overall Financial Resource Strain (CARDIA) Answe r Date Recorded How hard is it for you to pa y for the very basics like food, housing, medical care, and heating? Not very hard 07/01/2025 Hunger Vital Sign Answer Date Recorded Within the past 12 months, y ou worried that your food would run out before you got the money to buy more. Never true 07/01/20 25 Within the past 12 months, t he food you bought just didn't last and you didn't have money to get more. Never true 07/01/2025 PRAPARE - Transportation Answer Date Re corded In the past 12 months, has l ack of transportation kept you from medical appointments or from getting medications? Yes 01/2025 In the past 12 months, has l ack of transportation kept you from meetings, work, or from getting things needed for daily living? Yes 07/01/2025 Housing Stability Vital Sign Answer Brad e Recorded In the last 12 months, was t here a time when you were not able to pay the mortgage or rent on time? No 07/01/2025 In the past 12 months, how m any times have you moved where you were living? 0 07/01/2025 At any time in the past 12 m [facility], were you homeless or living in a senior care (including now)? No 07/01/2025 [facility] Utilities Answer Date Recorded In the past 12 months has th e electric, gas, oil, or water company threatened to shut off services in your home? No 07/01/2025 Personal Safety Answer Date Recorded Have you ever been in or are you currently in a harmful physical or emotional relationship or is someone making you feel afraid or unsafe? 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 Gender Identity Not on file Sexual Orientation Straight 01/06/2023 2: 18 PM CDT Occupation Industry Job Start Date Job End Date [employer] Not on file Not on file Not on fi le Last Filed Vital Signs Vital Sign Reading Time Taken Comments Blood Pressure 125/70 08/24/2025 10:52 AM CDT Pulse 62 01/25/2025 12:08 PM CDT Temperature 36.7 C (98 F) 02/22/2025 2:11 PM CDT Respiratory Rate 20 01/25/2025 12:0 8 PM CDT Oxygen Saturation 98% 02/22/2025 2:11 PM CDT Inhaled Oxygen Concentration - - Weight 102.1 kg (225 lb 1.4 oz) 025 10:52 AM CDT Height 170.2 cm (5' 7.01) 08/24/2025 1 0:52 AM CDT Body Mass Index 35.25 08/24/2025 10:52 AM CDT Plan of Treatment Health Maintenance Due Date Last Done Comments Hepatitis B Screening 1973 Pneumococcal vaccine 65+ (1 of 2 - PCV) 1975 Zoster Vaccine (1 of 2) 2006 Covid-19 Vaccine (3 - 2024-2 6 season) 2025 07/19/2021, 06/28/2021 Influenza Vaccine (#1) 2025 , 08/06/2023, 09/13/2022, Additional history exists Colon Cancer Screening-DNA Stool 04/09/2026 04/09/2023, 04/08/2023, 12/23/2022 Depression Screening 07/13/2026 07/13/2025, 07/13/2025, 02/22/2025, Additional history exists Fall Risk Assessment 07/13/2026 07/13/2025, 04/28/2024, 11/05/2023, Additional history exists Well Visit 65+ 07/13/2026 07/13/2025, 04/28/2024 Prostate Cancer Screening-PSA 02/22/2027, 08/02/2022, 08/25/2020, Additional history exists DTaP/Tdap/Td Vaccine (4 - Td or Tdap) 08/28/2034 08/28/2024, 09/15/2015, 09/15/2015 Hepatitis C Screening Completed 01/09/2023, 021 Colon Cancer Screening-CT Colonography Discontinued 04/09/2023, 04/08/2023 Colon Cancer Screening-FIT Discontinued 04/09, 04/08/2023, 12/23/2022 Colon Cancer Screening-Sigmoidoscopy Discontinued 04/09/2023, 04/08/2023 Abdominal Aortic Aneurysm (A AA) Screen Completed 10/07/2023, 10/05/2023, 04/07/2023, Additional history exists Procedures Procedure Name Priority Date/Time Associated Diagnosis Comments SCAN - RADIOLOGY/IMAGING 09/30/2025 SCAN - RADIOLOGY/IMAGING 09/01/2025 CMP Routine 08/01/2025 HEMOGLOBIN A1C Routine 08/01/2025 TSH Routine 08/01/2025 PSA SCREEN Routine 02/22/2025 11:55 AM CDT Prostate cancer screening CT CHEST ABDOMEN PELVIS W CONTRAST ED Urgent/IP Urgent 10/07/2023 6:50 PM DATA VISUALIZATION DEVELOPER FLEXIBLE SIGMOIDOSCOPY 04/09/2023 12:11 PM CDT HEPATITIS PANEL, ACUTE Routine 01/09/2023 5:27 AM CDT from Last 3 Months or Most Recently Relevant to Health Maintenance Results * SCAN - RADIOLOGY/IMAGING (09/30/2025) Anatomical Region Laterality Modality Other us Peyton Burris MD Final Res ult * SCAN - RADIOLOGY/IMAGING (09/01/2025) Anatomical Region Laterality Modality Other us Provider Scanning Final Result * CMP (08/01/2025) Historical Provider MD LAB BLOOD ORDERABLES Rachael l Result EXTERNAL LAB * (ABNORMAL) TSH (08/01/2025) Scribed TSH 46.29(A) 0.30 - 4.50 mcU/mL EXTERNAL LAB Blood Result [facility] Historical Provider MD LAB BLOOD ORDERABLES Rachael l Result Performing Organization Address [facility]/ZIP Co de Phone Number EXTERNAL LAB * (ABNORMAL) Hemoglobin A1c (08/01/2025) SCRIBED Hemoglobin A1c 5.7(A) 4.0 - 5.6 % EXTERNAL LAB Blood Result [facility] Provider MD LAB BLOOD ORDERABLES Rachael l Result Performing Organization Address [facility]/ZIP Co de Phone Number EXTERNAL LAB * PSA screen (02/22/2025 11:55 AM CDT) PSA-Total 0.40 <=5.40 ng/mL Comment: Interpretive Data AGE SEX REFERENCE INTERVAL 0 minutes-150 years Female None 0 minutes-49 years Male None 50-59 years Male 0-3.90 60-69 years Male 0-5.40 70-79 years Male 0-6.20 80-150 years Male 0-6.20 The Tracy PSA Total assay procedure was used. Results from different manufacturers or methods may not be comparable. Serial testing should be performed using the same method. Current interpretive data last revised 22. Testing performed by: [facility], [address] [place] [address]., [id number] Blood 02/22/2025 11:5 5 AM CDT 02/22/2025 12:38 PM CDT Const[place] SECURITY ADVISOR LAB BLOOD ORDERABLES Final Res ult [facility] [address] [facility] Department [place] [address] * CT Chest Abdomen Pelvis W Contrast (10/07/2023 6:50 PM DATA VISUALIZATION DEVELOPER) Anatomical Region Laterality Modality Body N/A Computed Tomogra phy 10/07/2023 7:08 PM DATA VISUALIZATION DEVELOPER Impressions 10/07/2023 7:13 PM DATA VISUALIZATION DEVELOPER No acute findings in the chest, abdomen or pelvis. Dictated by: Ej Abbott MD The radiology attending physician has personally reviewed this study, and had reviewed and/or edited this written report and agrees with it. Electronically signed by: Laron José M.D. Narrative 10/07/2023 7:13 PM DATA VISUALIZATION DEVELOPER EXAMINATION: CT CHEST ABDOMEN PELVIS W CONTRAST HISTORY: Trauma with dropping hemoglobin TECHNIQUE: Transaxial computed tomographic images of the chest, abdomen and pelvis were obtained with intravenous contrast according to the standard protocol after the uneventful administration of 70 mL Opti-Ray 350 intravenous contrast. COMPARISON: CT 10/05/2023 FINDINGS: CHEST: The thyroid is atrophied. No axillary or supraclavicular lymphadenopathy. The heart size is normal. Aortic annular calcifications are noted. Coronary artery calcifications are also seen. No pericardial effusion. No mediastinal lymphadenopathy. The thoracic esophagus is nondistended. There is an azygous fissure. No pleural effusion or pneumothorax. Dependent atelectasis is seen in the lung bases. Peripheral reticulation suggesting early fibrotic changes in the lungs. ABDOMEN/PELVIS: Normal appearance of the liver. The patient status post cholecystectomy. The spleen, pancreas, adrenal glands are normal. The kidneys are atrophied, left greater than right. No hydronephrosis. Urinary bladder has iodinated contrast material within it. The abdominal aorta is normal in caliber with mild atherosclerotic disease. No significant abdominal or pelvic lymphadenopathy. The stomach is nondistended. Normal bowel gas pattern. The appendix is normal. There is colonic diverticulosis without evidence of diverticulitis. Calcifications can be seen in the prostate. There is mild body wall edema. There is diffuse osteopenia. No suspicious osseous lesion. Unchanged retrolisthesis of L3 on L4, with lumbosacral transitional anatomy and lumbarization of S1. Procedure Note Laron José MD - 10/07/2023 EXAMINATION: CT CHEST ABDOMEN PELVIS W CONTRAST HISTORY: Trauma with dropping hemoglobin TECHNIQUE: Transaxial computed tomographic images of the chest, abdomen and pelvis were obtained with intravenous contrast according to the standard protocol after the uneventful administration of 70 mL Opti-Ray 350 intravenous contrast. COMPARISON: CT 10/05/2023 FINDINGS: CHEST: The thyroid is atrophied. No axillary or supraclavicular lymphadenopathy. The heart size is normal. Aortic annular calcifications are noted. Coronary artery calcifications are also seen. No pericardial effusion. No mediastinal lymphadenopathy. The thoracic esophagus is nondistended. There is an azygous fissure. No pleural effusion or pneumothorax. Dependent atelectasis is seen in the lung bases. Peripheral reticulation suggesting early fibrotic changes in the lungs. ABDOMEN/PELVIS: Normal appearance of the liver. The patient status post cholecystectomy. The spleen, pancreas, adrenal glands are normal. The kidneys are atrophied, left greater than right. No hydronephrosis. Urinary bladder has iodinated contrast material within it. The abdominal aorta is normal in caliber with mild atherosclerotic disease. No significant abdominal or pelvic lymphadenopathy. The stomach is nondistended. Normal bowel gas pattern. The appendix is normal. There is colonic diverticulosis without evidence of diverticulitis. Calcifications can be seen in the prostate. There is mild body wall edema. There is diffuse osteopenia. No suspicious osseous lesion. Unchanged retrolisthesis of L3 on L4, with lumbosacral transitional anatomy and lumbarization of S1. IMPRESSION: No acute findings in the chest, abdomen or pelvis. Dictated by: Ej Abbott MD The radiology attending physician has personally reviewed this study, and had reviewed and/or edited this written report and agrees with it. Electronically signed by: Laron José M.D. us Jc Kate MD IMG CT PROCEDURES Final Res ult * FLEXIBLE SIGMOIDOSCOPY (04/09/2023 12:11 PM CDT) Anatomical Region Laterality Modality Other Narrative Procedure Note Claudine Minor MD - 04/09/2023 12:11 PM CDT [facility] GI ENDOSCOPY Patient Name: Obie Greenwood Procedure Date: 04/09/2023 12:11 PM Date of : 1955 Admit Type: Inpatient Age: 67 Gender: Male Attending MD: Claudine Matt M.D. Room: [facility] ENDOSCOPY ROOM 05 Note Status: Finalized Procedure: Flexible Sigmoidoscopy Indications: Melena Referring MD: Providers: Claudine Minor M.D. Medicines: Monitored Anesthesia Care Complications: No immediate complications. Estimated Blood Loss: Estimated blood loss: none. Procedure: The benefits, risks, and alternatives to theprocedure and sedation were discussed and informed consentwas obtained. The scope was passed under direct vision. The [id number] colonoscope was introduced throughthe anus and advanced to the cecum, identified by appendiceal orifice and ileocecal valve. Thebenefits, risks, and alternatives to the procedure andsedation were discussed and informed consent wasobtained.The flexible sigmoidoscopy was accomplished without difficulty. The patient tolerated the procedurewell. The quality of the bowel preparation was poor. Findings: Patchy mild inflammation characterized by congestion (edema),erythema and shallow ulcerations was found in the rectum, in the recto-sigmoid colon and in the distal sigmoid colon. Biopsies were taken with acold forceps for histology. Normal mucosa was found in the proximal sigmoid colon, in the mid sigmoid colon and in the distal descending colon. A few small-mouthed diverticula were found in the sigmoid colon. Impression: - Preparation of the colon was poor. - Patchy mild inflammation was found in the rectum,in the recto-sigmoid colon and in the distal sigmoid colon secondary to proctosigmoid colitis. Biopsied. Differential include focal ischemic colitis and ulcerative proctitis. - Normal mucosa in the proximal sigmoid colon, inthe mid sigmoid colon and in the distal descendingcolon. - Diverticulosis in the sigmoid colon. Recommendation: - Return patient to ICU for ongoing care. - Advance diet as tolerated. - Await pathology results. - Resume Xarelto (rivaroxaban) at prior dose in 3days. - Outpatient colonoscopy recommended within 3months after a 2-day bowel preparation. Attending Participation: I personally performed the entire procedure. Claudine Minor M.D. Claudine Minor M.D. 04/09/2023 2:42:14 PM . Number of Addenda: 0 Note Initiated On: 04/09/2023 12:11 PM Recognized by the [employer] for promoting quality in endoscopy Claudine Minor MD ENDOSCOPY P ROCEDURES Final Result * Hepatitis panel, acute (01/09/2023 5:27 AM CDT) Hep A IgM Nonreactive Nonreactive [facility] Comment: Interpretive Data: If Hep A IgM Ab is reported as Equivocal, a new sample should be drawn in two weeks for testing. Current interpretive data was last revised on 20. Hep B core IgM Nonreactive Nonreactive [facility] Comment: Interpretive Data If HepB Core IgM Ab is reported as Equivocal, a new sample should be drawn in two weeks for testing. Current interpretive data was last revised on 20. Hep C Ab Nonreactive Nonreactive [facility] Comment: Interpretive Data Nonreactive: Antibodies to HCV not detected. Does NOT exclude the possibility of recent exposure to HCV. Equivocal: Equivocal for HCV antibodies. Supplemental molecular testing will be automatically performed to determine infection status in accordance with current CDC screening recommendations. Reactive: Positive for HCV antibodies. This may represent current or past HCV infection. Supplemental molecular testing will be automatically performed to determine current infection status in accordance with current CDC screening recommendations. Interpretive data was last revised on 2020. HepBsAg Nonreactive Nonreactive [facility] Blood 01/09/2023 5:27 AM CDT 01/09/2023 6:40 AM CDT Gómez Peters MD LAB MICROBIOLOGY - GENERAL OR DERABLES Final Result [facility] [address] [facility] Department of Laboratories [place], [place] [id number] from Last 3 Months or Most Recently Relevant to Health Maintenance Insurance MEDICARE [facility] MEDICARE BLUE CROSS MEDICARE SUPPLEMENT MEDICARE BLUE TRADITIONAL [place] Advance Directives For more information, please contact: [phone] Documents on File Type Date Recorded Patient Insurance Representative Expl anation ADVANCE DIRECTIVE 12/19/2021 Kelly Greenwood [employer] * Full Code (Latest Code Status on File) Date Activated Date Inactivated Comments 10/06/2023 12:29 AM 10/11/2023 6:33 PM * Full Code Date Activated Date Inactivated Comments 04/09/2023 1:44 PM 04/16/2023 9:00 PM * Full Code Date Activated Date Inactivated Comments 04/08/2023 10:49 AM 04/09/2023 1:44 PM * Full Code Date Activated Date Inactivated Comments 04/07/2023 8:44 PM 04/08/2023 10:49 AM * Full Code Date Activated Date Inactivated Comments 03/13/2023 11:44 PM 03/21/2023 4:47 AM Healthcare Agents on File Name Relationship Healthcare Agent Relationshi p Communication Kelly Krystyna Mother Health Care Agent Kurtis Krystyna Brother First Alternate Health Care Agent Care Teams Plate Maker Zinc Relationship Specialty Start Date End Date Peyton Burris MD PCP - General Family Medicine 11/15/21 Kulwant Moreno MD Consulting Physician Plastic Surgery 12/29/21 Bernie Meneses, [address] [place] [id number] Director Religious Education 07/01/25 Bo Banuelos MD [address] [facility] [address] [place] [id number] Consulting Physician Nephrology 07/02/25
--- OUTSIDE RECORDS SUMMARY | 2025-10-14 16:14 | XMS_ITS | Patient Health Record ---
Author Organization [facility] Address [address] [place], [place] [id number] Care Team Providers Care Client Architect Name Role Phone NASIR MACEDO Unavailable [phone] Peyton Hinds Unavailable Unavailable Reason For Referral No Information Social History Social History Additional Details Category Social Info Options Details Migrated Social History Migrated Social History Smoking Status : Current everyday tobacco user , History of tobacco use : Current everyday tobacco user Plan Of Treatment No Information Insurance Providers Payer Name Payer Address Payer Phone Subscriber Number Group Number Insured Name Patient Relationship to Insured Coverage Start Date Coverage End Date [employer]. [address] [place] [id number] DONTAE MOTA Self - patient is the insured
--- OUTSIDE RECORDS SUMMARY | 2025-10-14 16:14 | XMS_ITS | Encounter Summary ---
Author Organization [facility] Healthcare Address [address] [place] [address] Care Team Providers Care Senior Financial Analyst Name Role Phone Peyton Burris MD Primary Care Provider [phone] Kulwant Moreno MD Unavailable [phone] Bernie MenesesW Unavailable [phone] Bo Banuelos MD Unavailable [phone] Encounter Details Date Type Department Care Team (Late st Contact Info) Description 09/01/2025 Orders Only [facility] Health Information Management [address] [place] [id number] Scanning, Provider Social History Tobacco Use Types Packs/Day Years [...] week 10/08/2023 How often do you attend [facility] or sikh services? Never 10/08/2023 Do you belong to any clubs o r organizations such as worship groups, unions, fraternal or athletic groups, or [...] place to sleep or slept in a retirement (including now)? No 10/08/2023 PHQ-9 Answer Date Recorded PHQ-9 Total Score 21 07/13/2025 Social Connection and Isolation Panel Answer Date Recorded In a typical week, how many times do you talk on the phone with family, friends, or neighbors? Never 07/01/2025 How often do you get together with friends or re latives? Never 07/01/2025 How often do you attend worship or sikh serv ices? Never 07/01/2025 Do you belong to any clubs o r organizations such as worship groups, unions, fraternal or athletic groups, or [...] any time in the past 12 m [facility], were you homeless or living in a retirement (including now)? No 07/01/2025 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 Gender Identity Not on file Sexual Orientation Straight 01/06/2023 2: 18 PM CDT Occupation Industry Job Start Date Job End Date [employer] Not on file Not on file Not on fi le documented as of this encounter Plan of Treatment Not on file documented as of this encounter Procedures Procedure Name Priority Date/Time Associated Diagnosis Comments SCAN - RADIOLOGY/IMAGING 09/01/2025 documented in this encounter Results * SCAN - RADIOLOGY/IMAGING (09/01/2025) Anatomical Region Laterality Modality Other us Provider Scanning Final Result documented in this encounter Visit Diagnoses Not on filedocumented in this encounter Care Teams Senior Financial Analyst Relationship Specialty Start Date End Date Peyton Burris MD PCP - General Family Medicine 11/15/21 Kulwant Moreno MD Consulting Physician Plastic Surgery 12/29/21 Bernie Meneses, [address] [place] [address] Clinical Psychologist Private Practice 07/01/25 Bo Banuelos MD [address] [facility] [address] [place] [place] [id number] Consulting Physician Nephrology 07/02/25 documented as of this encounter
--- OUTSIDE RECORDS SUMMARY | 2025-10-14 16:14 | XMS_ITS | Encounter Summary ---
Author Organization [facility] Facility Care Team Providers Care Boring Mill Set Up Operator Vertical Name Role Phone Peyton Burris MD Primary Care Provider [phone] Peyton Burris MD Primary Care Provider [phone] Peyton Burris MD Primary Care Provider [phone] Peyton Burris MD Primary Care Provider [phone] Peyton Burris MD Primary Care Provider [phone] Luz Rob RN Unavailable [phone] Kulwant Moreno MD Unavailable [phone] Carmenza Tapia TELEMARKETING SUPERVISOR Unavailable [phone] Leatha Dueñas TELEMARKETING SUPERVISOR Unavailable [phone] Bernie Meneses TELEMARKETING SUPERVISOR Unavailable [phone] Bo Banuelos MD Unavailable [phone] Encounter Details Date Type Department Care Team (Latest Contact Info) Description 12/05/2017 Orders Only [facility] Provider, MD Angy [address] [place] [address] Social History Tobacco Use Types Packs/Day Years Used Date Smoking Tobacco: Never Assessed Sex and Gender Information Value Date Recorded Sex Assigned at Not on file Legal Sex Male 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 us Historical Provider Final Res ult documented in this encounter Visit Diagnoses Not on filedocumented in this encounter Additional Health Concerns Infection Onset Date Last Indicated Resolved Time MRSA 09/19/2021 09/19/2021 03/18/2022 3:05 AM CDT COVID: Suspected 11/14/2021 11/14/2021 11/14/2021 10:03 PM OPTICAL LABORATORY TECHNICIAN COVID19 11/14/2021 11/14/2021 11/24/2021 3:08 AM OPTICAL LABORATORY TECHNICIAN COVID: Recovered Comment:Added based on recent COVID infection. 11/24/2021 11/24/2021 12/28/2021 11:42 AM OPTICAL LABORATORY TECHNICIAN COVID: Suspected 01/06/2023 01/06/2023 01/06/2023 9:17 AM CDT COVID: Suspected 02/04/2023 02/04/2023 02/04/2023 6:02 AM CDT COVID: Suspected 03/13/2023 03/13/2023 03/13/2023 5:09 PM CDT MRSA 04/07/2023 04/07/2023 10/04/2023 3:05 AM OPTICAL LABORATORY TECHNICIAN documented as of this encounter Care Teams Boring Mill Set Up Operator Vertical Relationship Specialty Start Date End Date Peyton Burris MD PCP - General 01/13/19 10/18/21 Peyton Burris MD PCP - General Family Medicine 10/19/21 11/04/21 Peyton Burris MD PCP - General Family Medicine 11/05/21 11/09/21 Peyton Burris MD PCP - General Family Medicine 11/10/21 11/14/21 Peyton Burris MD PCP - General Family Medicine 11/15/21 Luz Rob, ROSIBEL [address] [place] [address] [address] [place] [address] Batch Freezer Operator 12/12/21 07/09/23 Kulwant Moreno MD [address] [place] [address] [address] [place] [address] Consulting Physician Plastic Surgery 12/29/21 Carmenza Tapia, [address] [place] [address] Type Copyist Park Naturalist 01/29/23 03/03/23 Leatha Dueñas, [address] [place] [address] Type Copyist 06/26/23 08/28/23 Bernie Meneses, [address] [place] [address] Type Copyist 07/01/25 Bo Banuelos MD [address] [facility] [address] [place] [address] Consulting Physician Nephrology 07/02/25 documented as of this encounter
--- OUTSIDE RECORDS SUMMARY | 2025-10-14 16:14 | XMS_ITS | Encounter Summary ---
Author Organization [facility] Healthcare Address [address] [place] [address] Care Team Providers Care Vault Person Name Role Phone Peyton Burris MD Primary Care Provider [phone] Kulwant Moreno MD Unavailable [phone] Bernie MenesesW Unavailable [phone] Bo Banuelos MD Unavailable [phone] Encounter Details Date Type Department Care Team (Late st Contact Info) Description 05/31/2025 Telephone [facility] Family Medicine [address] [facility] [address] [place] [address] Peyton Burris MD [address] [place] [address] [address] [place], [place] [id number] Social History Tobacco Use Types Packs/Day Years Used Date Smoking Tobacco: Former Cigarettes 0.1 27 0 10/1994 - 10/2021 Smokeless Tobacco: Never Alcohol Use Standard Drinks/Week Comments Never 0 (1 standard drink = 0.6 oz pur e alcohol) [facility] Utilities Answer Date Recorded In the past 12 months has [place] electric, gas, oil, or water company threatened to shut off services in your home? No 10/08/2023 Social Connection and Isolation Panel Answer Date Recorded In a typical week, how many times do you talk on the phone with family, friends, or neighbors? More than three times a week 10/08/2023 How often do you get togethe r with friends or relatives? More than three times a week 10/08/2023 How often do you attend chur ch or mandaeism services? Never 10/08/2023 Do you belong to any clubs o r organizations such as restorationism groups, unions, fraternal or athletic groups, or [...] more points, staff should administer the PHQ-9) 0 02/22/2025 Hunger Vital Sign Answer Date Recorded Within the past 12 months, y ou worried that your food would run out before you got the money to buy more. Never true 10/08/20 23 Within the past 12 months, t he food you bought just didn't last and you didn't have money to get more. Never true 10/08/2023 PRAPARE - Transportation Answer Date Re corded [...] place to sleep or slept in a alf (including now)? No 10/08/2023 Personal Safety Answer Date Recorded Have you ever been in or are you currently in a harmful physical or emotional relationship or is someone making you feel afraid or unsafe? 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 Gender Identity Not on file Sexual Orientation Straight 01/06/2023 2: 18 PM CDT Occupation Industry Job Start Date Job End Date [employer] Not on file Not on file Not on fi le documented as of this encounter Plan of Treatment Not on file documented as of this encounter Visit Diagnoses Not on filedocumented in this encounter Care Teams Vault Person Relationship Specialty Start Date End Date Peyton Burris MD PCP - General Family Medicine 11/15/21 Kulwant Moreno MD Consulting Physician Plastic Surgery 12/29/21 Bernie Meneses, [address] [place] [address] Electric Motor Assembler 07/01/25 Bo Banuelos MD [address] [facility] [address] [address] Consulting Physician Nephrology 07/02/25 documented as of this encounter
--- OUTSIDE RECORDS SUMMARY | 2025-10-14 16:14 | XMS_ITS | Patient Health Record ---
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 [employer] Name Role Phone Peyton Burris Primary Care Provider EVELYN Randall Unavailable [phone] Allergies No Known Allergies Reason For Referral Reason NEW PC REFERRAL RE CEIVED VIA [employer] BIDDEFORD POOL Diagnosis 1 Rheumatoid arthritis involving multiple sites with positive rheumatoid factor (M05.79) Referred Organization [facility] Robb fish [facility] Referred Provider EVELYN HYLTON Referred Address [address] [place], [place],[address], General Notes SPOKE TO THE PATIENT AND SCHEDULED THE PATIENT FOR 08.10.25@12:30PM, INDIO MURPHY 08/06/2025 01:21:17 PM >, PATIENT ADMITTED TO [facility] JEFFREY BURR JERAE 08/10/2025 03:22:06 PM > Referral Priority Routine Reason strengthening Diagnosis 1 Rheumatoid arthritis involving multiple sites with positive rheumatoid factor (M05.79) Referral Organization [facility] Referring Provider First Name EVELYN Referring Provider Last Name CONCETTA Referring Provider Speciality Nurse Prac titioner Referred Provider Specialty Physical The rapist Referral Priority Routine Medications Medication SIG (Take, Route, Frequency, Duration) Notes Start Date End Date Status oxyCODONE-Acetaminophen 5-325 MG 1 tablet as needed Oral every 8 hours; Duration: 10 Days Active Vitamin B-12 1000 MCG TAKE 2 TABLETS (2, 000 MCG TOTAL) BY MOUTH DAILY Oral; Duration: 90 Days Active Atorvastatin Calcium 20 MG 1 tablet Oral Once a day; Duration: 90 Days Active Levothyroxine Sodium 50 MCG Oral; Duration: 30 Days Active Pregabalin 100 MG 1 capsule Oral twice a day; Duration: 30 Days Active Remicade 100 MG Intravenous; Duratio n: 56 Days Active Furosemide 40 MG 1 tablet Oral daily; Duration: 90 Days Active Potassium Chloride Samira ER 20 MEQ TAKE 1 TABLET BY MOUTH EVERY DAY Oral; Duration: 90 Days Active Vitamin D (Ergocalciferol) 1.25 MG (12198 UT) TAKE 1 CAPSULE (50,000 UNITS TOTAL) BY MOUTH EVERY 30 DAYS Oral; Duration: 84 Days Active Omeprazole 20 MG Oral; Duration: 90 Days Active Cetirizine HCl 10 MG 1 tablet Orally Onc e a day; Duration: 30 day(s) Active Social History Tobacco Use: Social History Observation Description Date Details (start date - stop date) Former Smoker NA - NA Tobacco Control (Standard) Question Answer Notes Tobacco use: Former smoker How long has it been since you last smoked? 1-5 years Additional Findings: Tobacco non-user Current no nsmoker Problems Problem Type SNOMED Code ICD Code Onset Dates Problem Status W/U Status Risk Notes Problem Chronic pain (93271180) Chronic pain (G89.29) Active confirmed Problem Rheumatoid arthritis (51279350) Rheumatoid arthritis involving multiple sites with positive rheumatoid factor (M05.79) Active confirmed Vital Signs Heart Rate 77 /min 08/24/2025 Temperature 97.4 degrees Fahrenheit 08/24/2025 Respiratory Rate 20 /min 08/24/2025 Blood pressure diastolic 70 mm Hg 08/24/2025 Oximetry 97 % 08/24/2025 Blood pressure systolic 100 mm Hg 08/24/2025 Encounters Encounter Location Date Provider Diagnosis [facility] [address] [address] 08/10/2025 EVELYN CONCETTA Rheumatoid arthriti s involving multiple sites with positive rheumatoid factor M05.79 ; Chronic pain G89.29 and Admission for palliative care Z51.5 [facility] [address] [facility] [address] 08/24/2025 EVELYN CONCETTA Rheumatoid arthriti s involving multiple sites with positive rheumatoid factor M05.79 ; Chronic pain G89.29 ; Encounter for palliative care Z51.5 and Impaired mobility Z74.09 [facility] [address] [facility] [address] [address] 09/07/2025 EVELYN CONCETTA [facility] [address] [address] 09/21/2025 EVELYN PANDAS [facility] [address] [address] 10/05/2025 EVELYN PANDAS [facility] [address] [address] 08/11/2025 EVELYN HYLTON Assessments Encounter Date Diagnosis (ICD Code) Assessment Notes Treatment Notes Treatment Clinical Notes Section Notes 08/10/2025 Chronic pain (ICD-10 - G89.29) Continue Lyrica Continue oxycodone (refill request has been placed to his PCP) Discussed Palliative care involvement in only acute pain management 08/10/2025 Rheumatoid arthritis involving multiple sites with positive rheumatoid factor (ICD-10 - M05.79) Continue injections Continue follow up with PCP Call to case making machine operator for understanding of what services they are going to provide as patient states they are to get him some in home care and slide board. Patient is open to physical therapy Chair bound 08/24/2025 Chronic pain (ICD-10 - G89.29) Continue medication Continue injections for rheumatoid arthritis 08/24/2025 Rheumatoid arthritis involving multiple sites with positive rheumatoid factor (ICD-10 - M05.79) Continue medication Physical therapy referral placed 08/10/2025 Admission for palliative care (ICD-10 - Z51.5) Patient open to palliative care admission DNR 08/24/2025 Encounter for palliative care (ICD-10 - Z51.5) Physical therapy referral placed PCP to order slide board for transfer Patient not open to hospice at this time [id number] with call into division of aging for electrical line worker Discussed the possibility of respite care if needed in future if mother goes into hospital 08/24/2025 Impaired mobility (ICD-10 - Z74.09) Physical therapy ordered Continue injections for rheumatoid arthritis: this has helped mobility in the past Plan Of Treatment No Information Insurance Providers Payer Name Payer Address Payer Phone Subscriber Number Group Number Insured Name Patient Relationship to Insured Coverage Start Date Coverage End Date [place] [address] [address] [place] [address] [phone] [id number] DONTAE MOTA Self - patient is the insured [facility] [address] [place] [address] [phone] [id number] JUANYDONTAE Salazar Self - patient is the insured Medical (General) History Medical History History ICD Code Arthritis, rheumatoid M06.9 Chronic obstructive pulmonary disease (C OPD) J44.9 CHF (congestive heart failure) I50.9 HLD (hyperlipidemia) E78.5 Hyperthyroidism E05.90 Chronic pain G89.29 GERD (gastroesophageal reflux disease) K 21.9 Vitamin D deficiency E55.9 Surgical History Surgery Date(Month/Year) carpal tunnel gall bladder Hospitalization History Reason Date(Month/Year)
[2025-10-14] MEDS: SENNA/DOCUSATE SODIUM TABLET 2 TAB PO (18:13)
[2025-10-14] MEDS: ceFAZolin 1 GM in SODIUM CHLORIDE 0.9% IV 50 ML 100 ML IVPB (20:26)
[2025-10-14] MEDS: ATORVASTATIN 20 MG TABLET PO (20:36)
[2025-10-14] MEDS: PREGABALIN (*CRX) 50 MG CAPSULE 100 MG PO (21:15)
[2025-10-14] MEDS: MELATONIN 5 MG TABLET PO (21:16)
[2025-10-15] VITALS (7 sets, daily range): BP systolic 105–124; BP diastolic 57–66; PULSE 55–72; RESP 17–21; TEMP 30.3–36.4; O2SAT 98–100
[2025-10-15] MEDS: ceFAZolin 1 GM in SODIUM CHLORIDE 0.9% IV 50 ML 100 ML IVPB ×2 (04:54→11:09)
[2025-10-15] MEDS: PREGABALIN (*CRX) 50 MG CAPSULE 100 MG PO ×3 (05:00→21:00)
--- NOTE | 2025-10-15 05:03 | PM.IMHP2 ---
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, acquired Peripheral neuropathy Ulcer of right foot with muscle involvement without evidence of necrosis CHF (congestive heart failure) DVT (deep venous thrombosis) LLE Right club foot Hypothyroidism COPD (chronic obstructive pulmonary disease) Rheumatoid arthritis CKD (chronic kidney disease) Family History Family History Mother High cholesterol Hypertension Sibling High cholesterol Social History Social History Smoking packs per day: 0.5 Smoking cigarettes per day: 10.0 Years smoked: 30 Smoking pack-years: 15.00 Smoking status: Former smoker Tobacco type: cigarettes Second hand tobacco smoke exposure: Yes Smoking end date: 09/27/23 Alcohol intake: never Substance use: never Substance use type: does not use Lack of Transportation: No Lack of Food: Never True Current Housing: I Have Housing Concerned About Future Housing: No Difficulty Paying Gas/Electric Bills: No Difficulty Paying for Meds: No Currently Unemployed: No Education: High School Diploma/GED Difficulty w/ Childcare or Family Care: No Living arrangements: with family Spiritual care concerns: No Meds Home Medications and Allergies Home Medications ?Medication ?Instructions ?Recorded ?Confirmed ?Type atorvastatin 20 mg tablet 20 mg PO HS 06/29/23 09/30/25 History ergocalciferol (vitamin D2) 25,000 50,000 unit PO WEEKLY 06/29/23 09/30/25 History unit capsule fludrocortisone 0.1 mg tablet 0.2 mg PO DAILY 06/29/23 09/30/25 History niacin 1,000 mg tablet,extended 1,000 mg PO HS 06/29/23 10/14/25 History release 24 hr oxycodone-acetaminophen 5 mg-325 1 tablet PO Q6H PRN Pain 06/29/23 09/30/25 History mg tablet potassium chloride 20 mEq 20 meq PO DAILY 06/29/23 09/30/25 History tablet,extended release pregabalin 100 mg capsule 100 mg PO TID 06/29/23 10/14/25 History cyanocobalamin (vitamin B-12) 1,000 mcg PO DAILY 09/13/25 09/30/25 History 1,000 mcg capsule furosemide 40 mg tablet 40 mg PO DAILY 09/13/25 09/30/25 History hydroxyzine HCl 25 mg tablet 25 mg PO BID PRN itching 09/13/25 09/30/25 History omeprazole 20 mg capsule,delayed 20 mg PO DAILY 09/13/25 09/30/25 History release levothyroxine 50 mcg tablet 50 mcg PO DAILY 09/30/25 10/14/25 History fluticasone fur. 100 mcg-umeclid 1 inh inhalation Q24H 10/14/25 10/14/25 History 62.5 mcg-vilant 25 mcg inhalat.powder (Trelegy Ellipta) Allergies Allergy/AdvReac Type Severity Reaction Status Date / Time No Known Allergies Allergy Verified 10/14/25 16:07 Vital Signs Vital Signs - 24 hr 10/14/25 10:31 10/14/25 14:11 10/14/25 14:25 Temperature 97.3 F L 97.1 F L Pulse Rate 89 75 77 Respiratory Rate 18 10 L 14 Blood Pressure 127/77 132/70 130/80 Pulse Oximetry 100 100 100 Oxygen Delivery Room Air Simple Face Mask Simple Face Mask Oxygen Flow Rate 10 10 10/14/25 14:40 10/14/25 14:55 10/14/25 15:10 Temperature Pulse Rate 78 78 77 Respiratory Rate 14 12 12 Blood Pressure 127/78 126/82 129/84 Pulse Oximetry 100 97 94 Oxygen Delivery Simple Face Mask Room Air Room Air Oxygen Flow Rate 10 10/14/25 15:25 10/14/25 15:45 10/14/25 16:00 Temperature 96.0 F L 97.4 F L Pulse Rate 78 78 76 Respiratory Rate 12 17 16 Blood Pressure 124/79 127/69 119/68 Pulse Oximetry 100 99 96 Oxygen Delivery Room Air Oxygen Flow Rate 10/14/25 16:30 10/14/25 17:30 10/14/25 20:00 Temperature 97.5 F L 97.5 F L Pulse Rate 77 82 72 Respiratory Rate 16 17 17 Blood Pressure 110/63 107/67 Pulse Oximetry 93 100 94 Oxygen Delivery Room Air Oxygen Flow Rate 10/14/25 20:15 10/14/25 20:44 Temperature 97.8 F 97.8 F Pulse Rate 72 72 Respiratory Rate 17 17 Blood Pressure 112/66 112/66 Pulse Oximetry 94 94 Oxygen Delivery Oxygen Flow Rate
[2025-10-15] MEDS: LEVOTHYROXINE SODIUM 50 MCG TABLET PO (06:15)
[2025-10-15 06:31] LABS: Hematocrit 33.7 % (42.0-52.0); Hemoglobin 10.9 g/dL (14.0-18.0); Immature Granulocyte Percent A 0.5 % (0-0.5); Lymphocytes Absolute Auto 1.85 K/mm3 (0.9-3.2); Mean Corpuscular HGB Conc 32.3 g/dl (32-36); Mean Corpuscular Hemoglobin 29.3 pg (26-34); Mean Corpuscular Volume 90.6 fl (80-100); Nucleated Red Blood Cells Absolute Auto 0.000 K/mm3 (0.0-0.012); Nucleated Red Blood Cells Perc 0.0 % (0.0-0.2); Platelet Count Result 277 k/mm3 (150-375); Red Blood Count 3.72 M/mm3 (4.6-6.20); White Blood Count 11.4 K/mm3 (4.5-10.0)
[2025-10-15 06:52] LABS: Anion Gap 5 mmol/L (4-12); Blood Urea Nitrogen 20 mg/dL (9-20); Calcium 8.1 mg/dL (8.4-10.2); Carbon Dioxide 27 mmol/L (22-30); Chloride 100 mmol/L (98-107); Estimated CRCL calculation 45 ml/min; Estimated Glomerular Filt Rate 44; Glucose 115 mg/dL (65-110); Potassium 4.3 mmol/L (3.4-5.0); Sodium 132 mmol/L (137-145)
--- NOTE | 2025-10-15 08:20 | P.PNIM_ITS ---
Subjective Date/time seen: 10/15/25 08:20 Objective Data Vital Signs Vital Signs: Vital Signs - 24 hr 10/14/25 10:31 10/14/25 14:11 10/14/25 14:25 Temperature 97.3 F L 97.1 F L Pulse Rate 89 75 77 Respiratory Rate 18 10 L 14 Blood Pressure 127/77 132/70 130/80 Pulse Oximetry 100 100 100 Oxygen Delivery Room Air Simple Face Mask Simple Face Mask Oxygen Flow Rate 10 10 10/14/25 14:40 10/14/25 14:55 10/14/25 15:10 Temperature Pulse Rate 78 78 77 Respiratory Rate 14 12 12 Blood Pressure 127/78 126/82 129/84 Pulse Oximetry 100 97 94 Oxygen Delivery Simple Face Mask Room Air Room Air Oxygen Flow Rate 10 10/14/25 15:25 10/14/25 15:45 10/14/25 16:00 Temperature 96.0 F L 97.4 F L Pulse Rate 78 78 76 Respiratory Rate 12 17 16 Blood Pressure 124/79 127/69 119/68 Pulse Oximetry 100 99 96 Oxygen Delivery Room Air Oxygen Flow Rate 10/14/25 16:30 10/14/25 17:30 10/14/25 20:00 Temperature 97.5 F L 97.5 F L Pulse Rate 77 82 72 Respiratory Rate 16 17 17 Blood Pressure 110/63 107/67 Pulse Oximetry 93 100 94 Oxygen Delivery Room Air Oxygen Flow Rate 10/14/25 20:15 10/14/25 20:44 10/15/25 05:45 Temperature 97.8 F 97.8 F 97.5 F L Pulse Rate 72 72 56 L Respiratory Rate 17 17 17 Blood Pressure 112/66 112/66 105/63 Pulse Oximetry 94 94 99 Oxygen Delivery Oxygen Flow Rate 10/15/25 07:51 Temperature 86.6 F L Pulse Rate 55 L Respiratory Rate 19 Blood Pressure 108/60 Pulse Oximetry 98 Oxygen Delivery Oxygen Flow Rate Intake/Output Intake/Output: Intake & Output 10/12/25 10/13/25 10/14/25 10/15/25 23:59 23:59 23:59 23:59 Intake Total 990 Output Total 775 450 Balance 215 -450 Meds/Results Medications: Active Medications Generic Name Dose Route Start Last Admin Trade Name Freq PRN Reason Stop Dose Admin Acetaminophen 650 mg 10/14/25 15:32 Acetaminophen 325 Mg Tablet PO Q6H PRN Pain or Fever Atorvastatin Calcium 20 mg 10/14/25 21:00 10/14/25 20:36 Atorvastatin 20 Mg Tablet PO 20 mg HS ASTRID Administration Cyanocobalamin 1,000 mcg 10/15/25 09:00 Cyanocobalamin 1,000 Mcg Tablet PO DAILY [facility] Diazepam 5 mg 10/14/25 15:32 Diazepam (*Crx) 5 Mg Tablet PO Q8H PRN Muscle Spasm Ergocalciferol 1,250 mcg 10/20/25 09:00 Ergocalciferol (Vitamin D2) 1,250 Mcg (50,000 Units) Capsule PO We@0900 [facility] Fludrocortisone Acetate 0.2 mg 10/15/25 09:00 Fludrocortisone Acetate 0.1 Mg Tablet PO DAILY [facility] Fluticasone/Umeclidinium/Vilanterol 1 puff 10/15/25 08:00 Fluticasone/Umeclidin/Vilanter 100-62.5-25 Mcg Ellipta INHALATION DAILYRT [facility] Furosemide 40 mg 10/15/25 09:00 Furosemide 40 Mg Tablet PO DAILY [facility] Hydroxyzine HCl 25 mg 10/14/25 15:32 Hydroxyzine Hcl 25 Mg Tablet PO BID PRN Itching Sodium Chloride 1,000 mls @ 100 mls/hr 10/14/25 15:32 10/14/25 21:16 Normal Saline Iv IV CONT Not Given .Q10H ASTRID Ibuprofen 800 mg in 200 mls @ 400 mls/hr 10/14/25 15:32 Caldolor 800 Mg/200 Ml IVPB Q6H PRN Pain Rated 4-6 Cefazolin Sodium 1 gm/ Sodium 50 mls @ 100 mls/hr 10/14/25 20:00 10/15/25 04:54 Chloride IVPB 10/15/25 12:29 100 mls/hr Q8H ASTRID Administration Levothyroxine Sodium 50 mcg 10/15/25 06:30 10/15/25 06:15 Levothyroxine Sodium 50 Mcg Tablet PO 50 mcg DAILY@0630 [facility] Administration Magnesium Hydroxide 30 ml 10/14/25 15:32 Magnesium Hydroxide Susp 30 Ml Udc PO BID PRN Constipation Morphine Sulfate 3 mg 10/14/25 15:32 Morphine Sulfate (*Crx) 4 Mg/Ml Inj IV PUSH Q3H PRN Pain Rated 7-10 Naloxone HCl 0.1 mg 10/14/25 15:32 Naloxone Hcl 0.4 Mg/Ml Vial IV PUSH Q2M PRN Opiate Reversal Niacin 1,000 mg 10/14/25 21:00 10/14/25 20:27 Niacin Sa 500 Mg Tablet PO 1,000 mg HS ASTRID Administration Ondansetron HCl 4 mg 10/14/25 15:32 Ondansetron Inj 4 Mg/2 Ml Vial IV PUSH Q4H PRN Nausea And Vomiting Oxycodone/Acetaminophen 1 tablet 10/14/25 15:32 Oxycodone/Acetaminophen (*Crx) 5-325 Mg Tablet PO Q6H PRN PAIN RATED 7-10 Pantoprazole Sodium 40 mg 10/15/25 09:00 Pantoprazole 40 Mg Tablet PO QAM [facility] Polyethylene Glycol 17 gm 10/15/25 09:00 Polyethylene Glycol 3350 17 Gm Powd.Pack PO QAM [facility] Potassium Chloride 20 meq 10/15/25 09:00 Potassium Chloride 20 Meq Er Tablet PO DAILY [facility] Pregabalin 100 mg 10/14/25 22:00 10/15/25 05:00 Pregabalin (*Crx) 50 Mg Capsule PO 100 mg Q8HR ASTRID Administration Rivaroxaban 10 mg 10/15/25 09:00 Rivaroxaban 10 Mg Tablet PO QAM [facility] Senna/Docusate Sodium 2 tab 10/14/25 17:00 10/14/25 18:13 Senna/Docusate Sodium Tablet PO 2 tab BID ASTRID Administration Labs Labs: Laboratory Results - last 24 hr 10/15/25 06:09 WBC 11.4 H RBC 3.72 L Hgb 10.9 L Hct 33.7 L MCV 90.6 MCH 29.3 MCHC 32.3 RDW 16.0 H Plt Count 277 MPV 9.3 Immature Gran % (Auto) 0.5 Neut % (Auto) 78.9 H Lymph % (Auto) 16.3 L Hudspeth % (Auto) 4.0 Eos % (Auto) 0.1 Baso % (Auto) 0.2 Lymph # (Auto) 1.85 Hudspeth # (Auto) 0.5 Eos # (Auto) 0.0 Baso # (Auto) 0.0 Abs Immat Gran (auto) 0.06 H Absolute Neuts (auto) 9.0 H Absolute Nucleated RBC 0.000 Nucleated RBC % 0.0 Sodium 132 L Potassium 4.3 Chloride 100 Carbon Dioxide 27 Anion Gap 5 BUN 20 Creatinine 1.57 H Estim Creat Clear Calc 45 Estimated GFR 44 L Glucose 115 H Calcium 8.1 L
--- NOTE | 2025-10-15 08:20 | P.CONIM_ITS ---
Assessment and Plan Assessment and plan (1) Cavovarus deformity of foot, acquired: Qualifiers: Laterality: right Qualified Code(s): M21.6X1 - Other acquired deformities of right foot Code(s): M21.6X9 - Other acquired deformities of unspecified foot Status: Acute Assessment and Plan: * S/P right below-knee amputation. Cast in place. * Post op care and pain control per ortho * Plan for acute rehab when medically stable * PT/OT * Continue IV cefazolin, IV fluids (2) Acquired cavovarus deformity of left foot: Code(s): M21.6X2 - Other acquired deformities of left foot Status: Acute Assessment and Plan: * Custom bracing (3) Hypothyroidism: Code(s): E03.9 - Hypothyroidism, unspecified Status: Acute Assessment and Plan: Continue levothyroxine (4) Hyperlipidemia: Code(s): E78.5 - Hyperlipidemia, unspecified Status: Acute Assessment and Plan: Continue atorvastatin (5) Acute kidney injury superimposed on chronic kidney disease: Code(s): N17.9 - Acute kidney failure, unspecified; N18.9 - Chronic kidney disease, unspecified Status: Acute Assessment and Plan: * Baseline creatinine appears to be around 1.10 * 10/15/2025: Creatinine 1.57 * Continue IV fluids per primary team * Encourage oral intake * Monitor I/Os * Monitor Renal function HPI Date of Consult Consult date: 10/15/25 Requesting Physician: Yandel Lvey MD Primary Care Provider: Peyton Burris, Consult Narrative Narrative: Obie Greenwood is a 70 year old male with PMHx RA, CKD3, COPD, chronic CHF of unknown subtype, hypothyroidism presenting with severe right foot cavovarus deformity. Status post 10/14/2025 right transtibial amputation with primary tibial fibular arthrodesis and immediate cast fitting. Patient tolerated the procedure well, without complications. Orthopedics or primary. Plan for PT/OT evaluations and discharged to halfway facility upon discharge when medically cleared. Patient is otherwise progressing well and has no complaints at this time. Dressing/cast is clean, dry and intact. Remains afebrile, slight up trend in WBC but likely reactionary to surgery. Kidney function impaired, increase of creatinine from 1.16-1.57. Glucose is well controlled, no other electrolyte abnormalities. Continue IV fluids, IV cefazolin, p.r.n. pain controlled per primary team. At home medications restarted. 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, acquired Peripheral neuropathy Ulcer of right foot with muscle involvement without evidence of necrosis CHF (congestive heart failure) DVT (deep venous thrombosis) LLE Right club foot Hypothyroidism COPD (chronic obstructive pulmonary disease) Rheumatoid arthritis CKD (chronic kidney disease) Family History Family History Mother High cholesterol Hypertension Sibling High cholesterol Social History Social History Smoking packs per day: 0.5 Smoking cigarettes per day: 10.0 Years smoked: 30 Smoking pack-years: 15.00 Smoking status: Former smoker Tobacco type: cigarettes Second hand tobacco smoke exposure: Yes Smoking end date: 09/27/23 Alcohol intake: never Substance use: never Substance use type: does not use Lack of Transportation: No Lack of Food: Never True Current Housing: I Have Housing Concerned About Future Housing: No Difficulty Paying Gas/Electric Bills: No Difficulty Paying for Meds: No Currently Unemployed: No Education: High School Diploma/GED Difficulty w/ Childcare or Family Care: No Living arrangements: with family Spiritual care concerns: No Meds Home Medications and Allergies Home Medications ?Medication ?Instructions ?Recorded ?Confirmed ?Type atorvastatin 20 mg tablet 20 mg PO HS 06/29/23 5 History ergocalciferol (vitamin D2) 25,000 50,000 unit PO WEEK LY 06/29/23 09/30/25 History unit capsule fludrocortisone 0.1 mg tablet 0.2 mg PO DAILY 06/29/23 09/30/25 History niacin 1,000 mg tablet,extended 1,000 mg PO HS 3 10/14/25 History release 24 hr oxycodone-acetaminophen 5 mg-325 1 tablet PO Q6H PRN P ain 06/29/23 09/30/25 History mg tablet potassium chloride 20 mEq 20 meq PO DAILY 06/29/2302/19 History tablet,extended release pregabalin 100 mg capsule 100 mg PO TID 06/29/2310/14 History cyanocobalamin (vitamin B-12) 1,000 mcg PO DAILY 09/1309/30/25 History 1,000 mcg capsule furosemide 40 mg tablet 40 mg PO DAILY 09/13/25/02/19 History hydroxyzine HCl 25 mg tablet 25 mg PO BID PRN itching 09/13/25 09/30/25 History omeprazole 20 mg capsule,delayed 20 mg PO DAILY 09/30/25 History release levothyroxine 50 mcg tablet 50 mcg PO DAILY 09/30/25 1 12/15/24 History fluticasone fur. 100 mcg-umeclid 1 inh inhalation Q24H 10/14/25 10/14/25 History 62.5 mcg-vilant 25 mcg inhalat.powder (Trelegy Ellipta) Allergies Allergy/AdvReac Type Severity Reaction Status Date / Time No Known Allergies Allergy Verified 10/14/25 16:07 Vital Signs Vital Signs - 24 hr 10/14/25 10:31 10/14/25 14:11 10/14/25 14:25 Temperature 97.3 F L 97.1 F L Pulse Rate 89 75 77 Respiratory Rate 18 10 L 14 Blood Pressure 127/77 132/70 130/80 Pulse Oximetry 100 100 100 Oxygen Delivery Room Air Simple Face Mask Simple Face Mask Oxygen Flow Rate 10 10 10/14/25 14:40 10/14/25 14:55 10/14/25 15:10 Temperature Pulse Rate 78 78 77 Respiratory Rate 14 12 12 Blood Pressure 127/78 126/82 129/84 Pulse Oximetry 100 97 94 Oxygen Delivery Simple Face Mask Room Air Room Air Oxygen Flow Rate 10 10/14/25 15:25 10/14/25 15:45 10/14/25 16:00 Temperature 96.0 F L 97.4 F L Pulse Rate 78 78 76 Respiratory Rate 12 17 16 Blood Pressure 124/79 127/69 119/68 Pulse Oximetry 100 99 96 Oxygen Delivery Room Air Oxygen Flow Rate 10/14/25 16:30 10/14/25 17:30 10/14/25 20:00 Temperature 97.5 F L 97.5 F L Pulse Rate 77 82 72 Respiratory Rate 16 17 17 Blood Pressure 110/63 107/67 Pulse Oximetry 93 100 94 Oxygen Delivery Room Air Oxygen Flow Rate 10/14/25 20:15 10/14/25 20:44 10/15/25 05:45 Temperature 97.8 F 97.8 F 97.5 F L Pulse Rate 72 72 56 L Respiratory Rate 17 17 17 Blood Pressure 112/66 112/66 105/63 Pulse Oximetry 94 94 99 Oxygen Delivery Oxygen Flow Rate 10/15/25 07:51 Temperature 86.6 F L Pulse Rate 55 L Respiratory Rate 19 Blood Pressure 108/60 Pulse Oximetry 98 Oxygen Delivery Oxygen Flow Rate Exam 2 Const: General: comfortable and no acute distress HENMT: Face/Nose/Sinus: Normal nares present Mouth: Yes moist mucous membranes Eyes: General: appearance normal, both eyes and all related structures Resp: Effort & Inspection: normal respiratory effort Auscultation: clear to auscultation bilaterally Cardio: Rate: regular rate Rhythm: regular rhythm GI: Inspection: non-distended GI Palp: Yes Soft to palpation A uscultation: normal bowel sounds Extrem: Other: Cast in place on right lower extremity, clean and dry Results Labs 10/15/25 06:09 10/15/25 06:09 Labs: Short CBC 10/15/25 Range/Units 06:09 WBC 11.4 H (4.5-10.0) K/mm3 Hgb 10.9 L (14.0-18.0) g/dL Hct 33.7 L (42.0-52.0) % Plt Count 277 (150-375) k/mm3 [facility] 10/15/25 06:09 Sodium 132 L Potassium 4.3 Chloride 100 Carbon Dioxide 27 BUN 20 Creatinine 1.57 H Glucose 115 H Calcium 8.1 L
[2025-10-15] MEDS: FLUDROCORTISONE ACETATE 0.1 MG TABLET 0.2 MG PO (09:24)
[2025-10-15] MEDS: CYANOCOBALAMIN 1,000 MCG TABLET 1000 MCG PO (09:24)
[2025-10-15] MEDS: RIVAROXABAN 10 MG TABLET PO (09:24)
[2025-10-15] MEDS: PANTOPRAZOLE 40 MG TABLET PO (09:24)
[2025-10-15] MEDS: SENNA/DOCUSATE SODIUM TABLET 2 TAB PO ×2 (09:24→16:46)
[2025-10-15] MEDS: FUROSEMIDE 40 MG TABLET PO (09:24)
[2025-10-15] MEDS: POTASSIUM CHLORIDE 20 MEQ ER TABLET PO (09:25)
--- NOTE | 2025-10-15 10:16 | P.PNOP_ITS ---
Progress Note: A&P Assessment and Plan (1) Cavovarus deformity of foot, acquired: Qualifiers: Laterality: right Qualified Code(s): M21.6X1 - Other acquired deformities of right foot Code(s): M21.6X9 - Other acquired deformities of unspecified foot Status: Acute Assessment and Plan: Status post right below-knee amputation. Cast in place. Pain control PT/OT. Plan for acute rehab when medically stable. Dietary supplement to aid in healing. (2) Acquired cavovarus deformity of left foot: Code(s): M21.6X2 - Other acquired deformities of left foot Status: Acute Assessment and Plan: Left foot deformity. Plan for custom bracing Subjective Subjective Date/Time Seen: 10/15/25 10:16 Post Op day: 1 Principal diagnosis: right foot deformity Interval history: patient awake, up in chair. Pain well controlled. Tolerating diet. No events overnight. Exam Const: General: healthy appearing; No in distress or confusion Orientation/consciousness: patient oriented x3 and No confusion HENMT: Head: normal to inspection, normocephalic and atraumatic Eyes: Conjunctivae: conjunctivae normal Sclera: sclerae normal Resp: Effort & Inspection: normal respiratory effort and no audible wheezes Neuro: General: patient oriented x3 and No confusion Extrem: Right lower extremity: knee Details: other ( Cast in place. Clean and dry.) Left lower extremity: ankle Details: normal to inspection; no tenderness, no swelling and no pitting edema and foot Details: vascular exam Details: dorsalis pedis pulse present and normal capillary refill Psych: Affect: normal affect Objective Data Vital Signs Vital Signs: Vital Signs - 24 hr 10/14/25 10:31 10/14/25 14:11 10/14/25 14:25 Temperature 97.3 F L 97.1 F L Pulse Rate 89 75 77 Respiratory Rate 18 10 L 14 Blood Pressure 127/77 132/70 130/80 Pulse Oximetry 100 100 100 Oxygen Delivery Room Air Simple Face Mask Simple Face Mask Oxygen Flow Rate 10 10 10/14/25 14:40 10/14/25 14:55 10/14/25 15:10 Temperature Pulse Rate 78 78 77 Respiratory Rate 14 12 12 Blood Pressure 127/78 126/82 129/84 Pulse Oximetry 100 97 94 Oxygen Delivery Simple Face Mask Room Air Room Air Oxygen Flow Rate 10 10/14/25 15:25 12/18/25 15:45 10/14/25 16:00 Temperature 96.0 F L 97.4 F L Pulse Rate 78 78 76 Respiratory Rate 12 17 16 Blood Pressure 124/79 127/69 119/68 Pulse Oximetry 100 99 96 Oxygen Delivery Room Air Oxygen Flow Rate 10/14/25 16:30 10/14/25 17:30 10/14/25 20:00 Temperature 97.5 F L 97.5 F L Pulse Rate 77 82 72 Respiratory Rate 16 17 17 Blood Pressure 110/63 107/67 Pulse Oximetry 93 100 94 Oxygen Delivery Room Air Oxygen Flow Rate 10/14/25 20:15 10/14/25 20:44 10/15/25 05:45 Temperature 97.8 F 97.8 F 97.5 F L Pulse Rate 72 72 56 L Respiratory Rate 17 17 17 Blood Pressure 112/66 112/66 105/63 Pulse Oximetry 94 94 99 Oxygen Delivery Oxygen Flow Rate 10/15/25 07:51 10/15/25 09:07 10/15/25 09:18 Temperature 86.6 F L Pulse Rate 55 L Respiratory Rate 19 Blood Pressure 108/60 Pulse Oximetry 98 Oxygen Delivery Room Air Room Air Oxygen Flow Rate Intake/Output Intake/Output: Intake & Output 10/12/25 10/13/25 10/14/25 10/15/25 23:59 23:59 23:59 23:59 Intake Total 990 250 Output Total 775 450 Balance 215 -200 Meds/Results Medications: Active Medications Generic Name Dose Route Start Last Admin Trade Name Freq PRN Reason Stop Dose Admin Acetaminophen 650 mg 10/14/25 15:32 Acetaminophen 325 Mg Tablet PO Q6H PRN Pain or Fever Atorvastatin Calcium 20 mg 10/14/25 21:00 10/14/25 20:36 Atorvastatin 20 Mg Tablet PO 20 mg HS ASTRID Administration Cyanocobalamin 1,000 mcg 10/15/25 09:00 10/15/25 09:24 Cyanocobalamin 1,000 Mcg Tablet PO 1,000 mcg DAILY ASTRID Administration Diazepam 5 mg 10/14/25 15:32 Diazepam (*Crx) 5 Mg Tablet PO Q8H PRN Muscle Spasm Ergocalciferol 1,250 mcg 10/20/25 09:00 Ergocalciferol (Vitamin D2) 1,250 Mcg (50,000 Units) Capsule PO We@0900 ASTRID Fludrocortisone Acetate 0.2 mg 10/15/25 09:00 10/15/25 09:24 Fludrocortisone Acetate 0.1 Mg Tablet PO 0.2 mg DAILY ASTRID Administration Fluticasone/Umeclidinium/Vilanterol 1 puff 10/15/25 08:00 10/15/25 10:00 Fluticasone/Umeclidin/Vilanter 100-62.5-25 Mcg Ellipta INHALATION Not Given DAILYRT [facility] Furosemide 40 mg 10/15/25 09:00 10/15/25 09:24 Furosemide 40 Mg Tablet PO 40 mg DAILY ASTRID Administration Hydroxyzine HCl 25 mg 10/14/25 15:32 Hydroxyzine Hcl 25 Mg Tablet PO BID PRN Itching Sodium Chloride 1,000 mls @ 100 mls/hr 10/14/25 15:32 10/14/25 21:16 Normal Saline Iv IV CONT Not Given .Q10H ASTRID Ibuprofen 800 mg in 200 mls @ 400 mls/hr 10/14/25 15:32 Caldolor 800 Mg/200 Ml IVPB Q6H PRN Pain Rated 4-6 Cefazolin Sodium 1 gm/ Sodium 50 mls @ 100 mls/hr 10/14/25 20:00 10/15/25 04:54 Chloride IVPB 10/15/25 12:29 100 mls/hr Q8H ASTRID Administration Levothyroxine Sodium 50 mcg 10/15/25 06:30 10/15/25 06:15 Levothyroxine Sodium 50 Mcg Tablet PO 50 mcg DAILY@0630 ASTRID Administration Magnesium Hydroxide 30 ml 10/14/25 15:32 Magnesium Hydroxide Susp 30 Ml Udc PO BID PRN Constipation Morphine Sulfate 3 mg 10/14/25 15:32 Morphine Sulfate (*Crx) 4 Mg/Ml Inj IV PUSH Q3H PRN Pain Rated 7-10 Naloxone HCl 0.1 mg 10/14/25 15:32 Naloxone Hcl 0.4 Mg/Ml Vial IV PUSH Q2M PRN Opiate Reversal Niacin 1,000 mg 10/14/25 21:00 10/14/25 20:27 Niacin Sa 500 Mg Tablet PO 1,000 mg HS ASTRID Administration Ondansetron HCl 4 mg 10/14/25 15:32 Ondansetron Inj 4 Mg/2 Ml Vial IV PUSH Q4H PRN Nausea And Vomiting Oxycodone/Acetaminophen 1 tablet 10/14/25 15:32 Oxycodone/Acetaminophen (*Crx) 5-325 Mg Tablet PO Q6H PRN PAIN RATED 7-10 Pantoprazole Sodium 40 mg 10/15/25 09:00 10/15/25 09:24 Pantoprazole 40 Mg Tablet PO 40 mg QAM ASTRID Administration Polyethylene Glycol 17 gm 10/15/25 09:00 10/15/25 09:24 Polyethylene Glycol 3350 17 Gm Powd.Pack PO 17 gm QAM ASTRID Administration Potassium Chloride 20 meq 10/15/25 09:00 10/15/25 09:25 Potassium Chloride 20 Meq Er Tablet PO 20 meq DAILY ASTRID Administration Pregabalin 100 mg 10/14/25 22:00 10/15/25 05:00 Pregabalin (*Crx) 50 Mg Capsule PO 100 mg Q8HR ASTRID Administration Rivaroxaban 10 mg 10/15/25 09:00 10/15/25 09:24 Rivaroxaban 10 Mg Tablet PO 10 mg QAM ASTRID Administration Senna/Docusate Sodium 2 tab 10/14/25 17:00 10/15/25 09:24 Senna/Docusate Sodium Tablet PO 2 tab BID ASTRID Administration Labs Labs: Laboratory Results - last 24 hr 10/15/25 06:09 WBC 11.4 H RBC 3.72 L Hgb 10.9 L Hct 33.7 L MCV 90.6 MCH 29.3 MCHC 32.3 RDW 16.0 H Plt Count 277 MPV 9.3 Immature Gran % (Auto) 0.5 Neut % (Auto) 78.9 H Lymph % (Auto) 16.3 L [place] % (Auto) 4.0 Eos % (Auto) 0.1 Baso % (Auto) 0.2 Lymph # (Auto) 1.85 [place] # (Auto) 0.5 Eos # (Auto) 0.0 Baso # (Auto) 0.0 Abs Immat Gran (auto) 0.06 H Absolute Neuts (auto) 9.0 H Absolute Nucleated RBC 0.000 Nucleated RBC % 0.0 Sodium 132 L Potassium 4.3 Chloride 100 Carbon Dioxide 27 Anion Gap 5 BUN 20 Creatinine 1.57 H Estim Creat Clear Calc 45 Estimated GFR 44 L Glucose 115 H Calcium 8.1 L
--- NOTE | 2025-10-15 12:59 | P.PNAN_ITS ---
Anes - Prog Note Post-Op Date/Time: 10/15/25 12:59 Cardiovascular status: normal Respiratory status: normal Airway patency: baseline Mental status: baseline Vital Signs: Last Vital Signs Temp 35.9 C L 10/15/25 12:00 Pulse 63 10/15/25 12:00 Resp 20 10/15/25 12:00 BP 109/66 10/15/25 12:00 Pulse Ox 100 10/15/25 12:00 O2 Del Method Room Air 10/15/25 09:18 O2 Flow Rate 10 10/14/25 14:40 Pain Score (VAS): 3 I/O: Intake & Output 10/14/25 10/15/25 10/15/25 23:59 07:59 15:59 Intake Total 840 50 250 Output Total 200 450 Balance 640 -400 250 Laboratory Tests 10/15/25 06:09 10/15/25 06:09 10/15/25 06:09 WBC 11.4 H RBC 3.72 L Hgb 10.9 L Hct 33.7 L MCV 90.6 MCH 29.3 MCHC 32.3 RDW 16.0 H Plt Count 277 MPV 9.3 Immature Gran % (Auto) 0.5 Neut % (Auto) 78.9 H Lymph % (Auto) 16.3 L [place] % (Auto) 4.0 Eos % (Auto) 0.1 Baso % (Auto) 0.2 Lymph # (Auto) 1.85 [place] # (Auto) 0.5 Eos # (Auto) 0.0 Baso # (Auto) 0.0 Abs Immat Gran (auto) 0.06 H Absolute Neuts (auto) 9.0 H Absolute Nucleated RBC 0.000 Nucleated RBC % 0.0 Sodium 132 L Potassium 4.3 Chloride 100 Carbon Dioxide 27 Anion Gap 5 BUN 20 Creatinine 1.57 H Estim Creat Clear Calc 45 Estimated GFR 44 L Glucose 115 H Calcium 8.1 L Patient Feedback: Patient satisfied with anesthetic care.
[2025-10-15] MEDS: oxyCODONE/ACETAMINOPHEN (*CRX) 5-325 MG TABLET 1 TABLET PO ×2 (16:50→22:11)
[2025-10-15] MEDS: ATORVASTATIN 20 MG TABLET PO (21:00)
[2025-10-15] MEDS: SODIUM CHLORIDE 0.9% IV 1,000 ML 100 ML IV CONT (21:05)
[2025-10-16] VITALS: BP 113/69; PULSE 73; RESP 14; TEMP 36.7; O2SAT 100
[2025-10-16 04:00] VITALS: BP 104/64; PULSE 64; RESP 14; TEMP 36.8; O2SAT 100
[2025-10-16 04:44] VITALS: BP 104/64; PULSE 64; RESP 14; TEMP 36.8; O2SAT 100
[2025-10-16] MEDS: PREGABALIN (*CRX) 50 MG CAPSULE 100 MG PO ×3 (06:03→21:10)
[2025-10-16] MEDS: LEVOTHYROXINE SODIUM 50 MCG TABLET PO (06:04)
[2025-10-16 07:42] LABS: Hematocrit 32.6 % (42.0-52.0); Hemoglobin 10.3 g/dL (14.0-18.0); Immature Granulocyte Percent A 0.3 % (0-0.5); Lymphocytes Absolute Auto 3.12 K/mm3 (0.9-3.2); Mean Corpuscular HGB Conc 31.6 g/dl (32-36); Mean Corpuscular Hemoglobin 29.3 pg (26-34); Mean Corpuscular Volume 92.9 fl (80-100); Nucleated Red Blood Cells Absolute Auto 0.000 K/mm3 (0.0-0.012); Nucleated Red Blood Cells Perc 0.0 % (0.0-0.2); Platelet Count Result 300 k/mm3 (150-375); Red Blood Count 3.51 M/mm3 (4.6-6.20); White Blood Count 12.1 K/mm3 (4.5-10.0)
[2025-10-16 08:07] LABS: Alanine Aminotransferase 8 U/L (6-50); Albumin Level 2.9 g/dL (3.5-5.1); Alkaline Phosphatase 98 U/L (38-126); Anion Gap 4 mmol/L (4-12); Aspartate Amino Transferase 25 U/L (17-59); Bilirubin,Total 0.4 mg/dL (0.2-1.3); Blood Urea Nitrogen 27 mg/dL (9-20); Calcium 7.9 mg/dL (8.4-10.2); Carbon Dioxide 30 mmol/L (22-30); Chloride 102 mmol/L (98-107); Estimated CRCL calculation 59 ml/min; Estimated Glomerular Filt Rate > 60; Glucose 72 mg/dL (65-110); Potassium 4.0 mmol/L (3.4-5.0); Sodium 136 mmol/L (137-145); Total Protein 6.4 g/dL (6.3-8.2)
--- NOTE | 2025-10-16 08:07 | P.PNIM_ITS ---
Assessment and Plan Assessment and Plan (1) Cavovarus deformity of foot, acquired: Qualifiers: Laterality: right Qualified Code(s): M21.6X1 - Other acquired deformities of right foot Code(s): M21.6X9 - Other acquired deformities of unspecified foot Status: Acute Assessment and Plan: * S/P right below-knee amputation. Cast in place. * Post op care and pain control per ortho * Plan for acute rehab when medically stable * PT/OT * Continue IV cefazolin, IV fluids (2) Acquired cavovarus deformity of left foot: Code(s): M21.6X2 - Other acquired deformities of left foot Status: Acute Assessment and Plan: * Custom bracing (3) Hypothyroidism: Code(s): E03.9 - Hypothyroidism, unspecified Status: Acute Assessment and Plan: Continue levothyroxine (4) Hyperlipidemia: Code(s): E78.5 - Hyperlipidemia, unspecified Status: Acute Assessment and Plan: Continue atorvastatin (5) Acute kidney injury superimposed on chronic kidney disease: Code(s): N17.9 - Acute kidney failure, unspecified; N18.9 - Chronic kidney disease, unspecified Status: Acute Assessment and Plan: * Baseline creatinine appears to be around 1.10 * 10/15/2025: Creatinine 1.57 * Continue IV fluids per primary team * Encourage oral intake * Monitor I/Os * Monitor Renal function Subjective Date/time seen: 10/16/25 08:07 Interval history: Patient resting comfortably in bed at time of exam. Continues to report healing/progressing well, minimal complaints. Ortho remains primary. Continue PT/OT. Plan for discharge likely Saturday, will need SNF placement ([facility] likely able to accept). Review of Systems Review of Systems: All systems reviewed & are unremarkable except as noted in HPI and below Exam Const: General: comfortable and no acute distress HENMT: Face/Nose/Sinus: Normal nares present Mouth: Yes moist mucous membranes Eyes: General: appearance normal, both eyes and all related structures Resp: Effort & Inspection: normal respiratory effort Auscultation: clear to auscultation bilaterally Cardio: Rate: regular rate Rhythm: regular rhythm GI: Inspection: non-distended Auscultation: normal bowel sounds Extrem: Other: Cast in place on right lower extremity, clean and dry Objective Data Vital Signs Vital Signs: Vital Signs - 24 hr 10/15/25 09:07 10/15/25 09:18 10/15/25 12:00 Temperature 96.6 F L Pulse Rate 63 Respiratory Rate 20 Blood Pressure 109/66 Pulse Oximetry 100 Oxygen Delivery Room Air Room Air 10/15/25 13:59 10/15/25 16:00 10/15/25 20:00 Temperature 96.4 F L 97.2 F L 97.1 F L Pulse Rate 60 59 L 72 Respiratory Rate 21 H 18 20 Blood Pressure 121/66 124/66 116/57 L Pulse Oximetry 100 99 99 Oxygen Delivery 10/15/25 20:55 10/15/25 21:30 10/16/25 00:00 Temperature 97.1 F L 98.0 F Pulse Rate 72 73 Respiratory Rate 20 14 Blood Pressure 116/57 L 113/69 Pulse Oximetry 99 100 Oxygen Delivery Room Air 10/16/25 04:00 10/16/25 04:44 Temperature 98.3 F 98.3 F Pulse Rate 64 64 Respiratory Rate 14 14 Blood Pressure 104/64 104/64 Pulse Oximetry 100 100 Oxygen Delivery Intake/Output Intake/Output: Intake & Output 10/13/25 10/14/25 10/15/25 10/16/25 23:59 23:59 23:59 23:59 Intake Total 990 800 520 Output Total 775 1175 Balance 215 -375 520 Meds/Results Medications: Active Medications Generic Name Dose Route Start Last Admin Trade Name Freq PRN Reason Stop Dose Admin Acetaminophen 650 mg 10/14/25 15:32 Acetaminophen 325 Mg Tablet PO Q6H PRN Pain or Fever Atorvastatin Calcium 20 mg 10/14/25 21:00 10/15/25 21:00 Atorvastatin 20 Mg Tablet PO 20 mg HS ASTRID Administration Cyanocobalamin 1,000 mcg 10/15/25 09:00 10/15/25 09:24 Cyanocobalamin 1,000 Mcg Tablet PO 1,000 mcg DAILY ASTRID Administration Diazepam 5 mg 10/14/25 15:32 Diazepam (*Crx) 5 Mg Tablet PO Q8H PRN Muscle Spasm Ergocalciferol 1,250 mcg 10/20/25 09:00 Ergocalciferol (Vitamin D2) 1,250 Mcg (50,000 Units) Capsule PO We@0900 [facility] Fludrocortisone Acetate 0.2 mg 10/15/25 09:00 10/15/25 09:24 Fludrocortisone Acetate 0.1 Mg Tablet PO 0.2 mg DAILY ASTRID Administration Fluticasone/Umeclidinium/Vilanterol 1 puff 10/15/25 08:00 10/15/25 10:00 Fluticasone/Umeclidin/Vilanter 100-62.5-25 Mcg Ellipta INHALATION Not Given DAILYRT [facility] Furosemide 40 mg 10/15/25 09:00 10/15/25 09:24 Furosemide 40 Mg Tablet PO 40 mg DAILY ASTRID Administration Hydroxyzine HCl 25 mg 10/14/25 15:32 Hydroxyzine Hcl 25 Mg Tablet PO BID PRN Itching Sodium Chloride 1,000 mls @ 100 mls/hr 10/14/25 15:32 10/15/25 21:05 Normal Saline Iv IV CONT 100 mls/hr .Q10H ASTRID Administration Ibuprofen 800 mg in 200 mls @ 400 mls/hr 10/14/25 15:32 Caldolor 800 Mg/200 Ml IVPB Q6H PRN Pain Rated 4-6 Levothyroxine Sodium 50 mcg 10/15/25 06:30 10/16/25 06:04 Levothyroxine Sodium 50 Mcg Tablet PO 50 mcg DAILY@0630 ASTRID Administration Magnesium Hydroxide 30 ml 10/14/25 15:32 Magnesium Hydroxide Susp 30 Ml Udc PO BID PRN Constipation Morphine Sulfate 3 mg 10/14/25 15:32 Morphine Sulfate (*Crx) 4 Mg/Ml Inj IV PUSH Q3H PRN Pain Rated 7-10 Naloxone HCl 0.1 mg 10/14/25 15:32 Naloxone Hcl 0.4 Mg/Ml Vial IV PUSH Q2M PRN Opiate Reversal Niacin 1,000 mg 10/14/25 21:00 10/15/25 21:00 Niacin Sa 500 Mg Tablet PO 1,000 mg HS ASTRID Administration Ondansetron HCl 4 mg 10/14/25 15:32 Ondansetron Inj 4 Mg/2 Ml Vial IV PUSH Q4H PRN Nausea And Vomiting Oxycodone/Acetaminophen 1 tablet 10/14/25 15:32 10/15/25 22:11 Oxycodone/Acetaminophen (*Crx) 5-325 Mg Tablet PO 1 tablet Q6H PRN Administration PAIN RATED 7-10 Pantoprazole Sodium 40 mg 10/15/25 09:00 10/15/25 09:24 Pantoprazole 40 Mg Tablet PO 40 mg QAM ASTRID Administration Polyethylene Glycol 17 gm 10/15/25 09:00 10/15/25 09:24 Polyethylene Glycol 3350 17 Gm Powd.Pack PO 17 gm QAM ASTRID Administration Potassium Chloride 20 meq 10/15/25 09:00 10/15/25 09:25 Potassium Chloride 20 Meq Er Tablet PO 20 meq DAILY ASTRID Administration Pregabalin 100 mg 10/14/25 22:00 10/16/25 06:03 Pregabalin (*Crx) 50 Mg Capsule PO 100 mg Q8HR ASTRID Administration Rivaroxaban 10 mg 10/15/25 09:00 10/15/25 09:24 Rivaroxaban 10 Mg Tablet PO 10 mg QAM ASTRID Administration Senna/Docusate Sodium 2 tab 10/14/25 17:00 10/15/25 16:46 Senna/Docusate Sodium Tablet PO 2 tab BID ASTRID Administration Labs Labs: Laboratory Results - last 24 hr 10/16/25 07:33 WBC 12.1 H RBC 3.51 L Hgb 10.3 L Hct 32.6 L MCV 92.9 MCH 29.3 MCHC 31.6 L RDW 16.4 H Plt Count 300 MPV 9.1 Immature Gran % (Auto) 0.3 Neut % (Auto) 59.9 Lymph % (Auto) 25.7 [place] % (Auto) 9.7 H Eos % (Auto) 4.0 Baso % (Auto) 0.4 Lymph # (Auto) 3.12 [place] # (Auto) 1.2 H Eos # (Auto) 0.5 H Baso # (Auto) 0.1 Abs Immat Gran (auto) 0.04 H Absolute Neuts (auto) 7.3 H Absolute Nucleated RBC 0.000 Nucleated RBC % 0.0
[2025-10-16] MEDS: SENNA/DOCUSATE SODIUM TABLET 2 TAB PO ×2 (08:16→16:49)
[2025-10-16] MEDS: FLUDROCORTISONE ACETATE 0.1 MG TABLET 0.2 MG PO (08:16)
[2025-10-16] MEDS: RIVAROXABAN 10 MG TABLET PO (08:16)
[2025-10-16] MEDS: POTASSIUM CHLORIDE 20 MEQ ER TABLET PO (08:16)
[2025-10-16] MEDS: FUROSEMIDE 40 MG TABLET PO (08:16)
[2025-10-16] MEDS: PANTOPRAZOLE 40 MG TABLET PO (08:17)
[2025-10-16] MEDS: CYANOCOBALAMIN 1,000 MCG TABLET 1000 MCG PO (08:17)
[2025-10-16] MEDS: SODIUM CHLORIDE 0.9% IV 1,000 ML 100 ML IV CONT (08:17)
--- NOTE | 2025-10-16 09:46 | P.PNOP_ITS ---
Progress Note: A&P Assessment and Plan (1) Cavovarus deformity of foot, acquired: Qualifiers: Laterality: right Qualified Code(s): M21.6X1 - Other acquired deformities of right foot Code(s): M21.6X9 - Other acquired deformities of unspecified foot Status: Acute Assessment and Plan: POD #2- Status post right below-knee amputation. Cast in place. Pain control PT/OT. Plan for acute rehab when medically stable- possibly Saturday Dietary supplement to aid in healing. Restarted [facility] (2) Acquired cavovarus deformity of left foot: Code(s): M21.6X2 - Other acquired deformities of left foot Status: Acute Assessment and Plan: Left foot deformity. Plan for custom bracing Subjective Subjective Date/Time Seen: 10/16/25 09:46 Post Op day: 2 Principal diagnosis: right foot deformity Interval history: Patient awake, up in bed. Some pain last night. Tolerating diet. No new events overnight. Exam Const: General: healthy appearing; No in distress or confusion Orientation/consciousness: patient oriented x3 and No confusion HENMT: Head: normal to inspection, normocephalic and atraumatic Eyes: Conjunctivae: conjunctivae normal Sclera: sclerae normal Resp: Effort & Inspection: normal respiratory effort and no audible wheezes Neuro: General: patient oriented x3 and No confusion Extrem: Right lower extremity: knee Details: other ( Cast in place. Clean and dry.) Left lower extremity: ankle Details: normal to inspection; no tenderness, no swelling and no pitting edema and foot Details: vascular exam Details: dorsalis pedis pulse present and normal capillary refill Psych: Affect: normal affect Objective Data Vital Signs Vital Signs: Vital Signs - 24 hr 10/15/25 12:00 10/15/25 13:59 10/15/25 16:00 Temperature 96.6 F L 96.4 F L 97.2 F L Pulse Rate 63 60 59 L Respiratory Rate 20 21 H 18 Blood Pressure 109/66 121/66 124/66 Pulse Oximetry 100 100 99 Oxygen Delivery 10/15/25 20:00 10/15/25 20:55 10/15/25 21:30 Temperature 97.1 F L 97.1 F L Pulse Rate 72 72 Respiratory Rate 20 20 Blood Pressure 116/57 L 116/57 L Pulse Oximetry 99 99 Oxygen Delivery Room Air 10/16/25 00:00 10/16/25 04:00 10/16/25 04:44 Temperature 98.0 F 98.3 F 98.3 F Pulse Rate 73 64 64 Respiratory Rate 14 14 14 Blood Pressure 113/69 104/64 104/64 Pulse Oximetry 100 100 100 Oxygen Delivery 10/16/25 08:15 Temperature Pulse Rate Respiratory Rate Blood Pressure Pulse Oximetry Oxygen Delivery Room Air Intake/Output Intake/Output: Intake & Output 10/13/25 10/14/25 10/15/25 10/16/25 23:59 23:59 23:59 23:59 Intake Total 936 445 1802 Output Total 775 1175 Balance 215 -375 1670 Meds/Results Medications: Active Medications Generic Name Dose Route Start Last Admin Trade Name Freq PRN Reason Stop Dose Admin Acetaminophen 650 mg 10/14/25 15:32 Acetaminophen 325 Mg Tablet PO Q6H PRN Pain or Fever Atorvastatin Calcium 20 mg 10/14/25 21:00 10/15/25 21:00 Atorvastatin 20 Mg Tablet PO 20 mg HS ASTRID Administration Cyanocobalamin 1,000 mcg 10/15/25 09:00 10/16/25 08:17 Cyanocobalamin 1,000 Mcg Tablet PO 1,000 mcg DAILY ASTRID Administration Diazepam 5 mg 10/14/25 15:32 Diazepam (*Crx) 5 Mg Tablet PO Q8H PRN Muscle Spasm Ergocalciferol 1,250 mcg 10/20/25 09:00 Ergocalciferol (Vitamin D2) 1,250 Mcg (50,000 Units) Capsule PO We@0900 ASTRID Fludrocortisone Acetate 0.2 mg 10/15/25 09:00 10/16/25 08:16 Fludrocortisone Acetate 0.1 Mg Tablet PO 0.2 mg DAILY ASTRID Administration Fluticasone/Umeclidinium/Vilanterol 1 puff 10/15/25 08:00 10/15/25 10:00 Fluticasone/Umeclidin/Vilanter 100-62.5-25 Mcg Ellipta INHALATION Not Given DAILYRT ASTRID Furosemide 40 mg 10/15/25 09:00 10/16/25 08:16 Furosemide 40 Mg Tablet PO 40 mg DAILY ASTRID Administration Hydroxyzine HCl 25 mg 10/14/25 15:32 Hydroxyzine Hcl 25 Mg Tablet PO BID PRN Itching Sodium Chloride 1,000 mls @ 100 mls/hr 10/14/25 15:32 10/16/25 08:17 Normal Saline Iv IV CONT 100 mls/hr .Q10H ASTRID Administration Ibuprofen 800 mg in 200 mls @ 400 mls/hr 10/14/25 15:32 Caldolor 800 Mg/200 Ml IVPB Q6H PRN Pain Rated 4-6 Levothyroxine Sodium 50 mcg 10/15/25 06:30 10/16/25 06:04 Levothyroxine Sodium 50 Mcg Tablet PO 50 mcg DAILY@0630 ASTRID Administration Magnesium Hydroxide 30 ml 10/14/25 15:32 Magnesium Hydroxide Susp 30 Ml Udc PO BID PRN Constipation Morphine Sulfate 3 mg 10/14/25 15:32 Morphine Sulfate (*Crx) 4 Mg/Ml Inj IV PUSH Q3H PRN Pain Rated 7-10 Naloxone HCl 0.1 mg 10/14/25 15:32 Naloxone Hcl 0.4 Mg/Ml Vial IV PUSH Q2M PRN Opiate Reversal Niacin 1,000 mg 10/14/25 21:00 10/15/25 21:00 Niacin Sa 500 Mg Tablet PO 1,000 mg HS ASTRID Administration Ondansetron HCl 4 mg 10/14/25 15:32 Ondansetron Inj 4 Mg/2 Ml Vial IV PUSH Q4H PRN Nausea And Vomiting Oxycodone/Acetaminophen 1 tablet 10/14/25 15:32 10/15/25 22:11 Oxycodone/Acetaminophen (*Crx) 5-325 Mg Tablet PO 1 tablet Q6H PRN Administration PAIN RATED 7-10 Pantoprazole Sodium 40 mg 10/15/25 09:00 10/16/25 08:17 Pantoprazole 40 Mg Tablet PO 40 mg QAM ASTRID Administration Polyethylene Glycol 17 gm 10/15/25 09:00 10/16/25 08:16 Polyethylene Glycol 3350 17 Gm Powd.Pack PO 17 gm QAM ASTRID Administration Potassium Chloride 20 meq 10/15/25 09:00 10/16/25 08:16 Potassium Chloride 20 Meq Er Tablet PO 20 meq DAILY ASTRID Administration Pregabalin 100 mg 10/14/25 22:00 10/16/25 06:03 Pregabalin (*Crx) 50 Mg Capsule PO 100 mg Q8HR ASTRID Administration Rivaroxaban 10 mg 10/15/25 09:00 10/16/25 08:16 Rivaroxaban 10 Mg Tablet PO 10 mg QAM ASTRID Administration Senna/Docusate Sodium 2 tab 10/14/25 17:00 10/16/25 08:16 Senna/Docusate Sodium Tablet PO 2 tab BID ASTRID Administration Labs Labs: Laboratory Results - last 24 hr 10/16/25 07:33 WBC 12.1 H RBC 3.51 L Hgb 10.3 L Hct 32.6 L MCV 92.9 MCH 29.3 MCHC 31.6 L RDW 16.4 H Plt Count 300 MPV 9.1 Immature Gran % (Auto) 0.3 Neut % (Auto) 59.9 Lymph % (Auto) 25.7 [place] % (Auto) 9.7 H Eos % (Auto) 4.0 Baso % (Auto) 0.4 Lymph # (Auto) 3.12 [place] # (Auto) 1.2 H Eos # (Auto) 0.5 H Baso # (Auto) 0.1 Abs Immat Gran (auto) 0.04 H Absolute Neuts (auto) 7.3 H Absolute Nucleated RBC 0.000 Nucleated RBC % 0.0 Sodium 136 L Potassium 4.0 Chloride 102 Carbon Dioxide 30 Anion Gap 4 BUN 27 H Creatinine 1.17 Estim Creat Clear Calc 59 Estimated GFR > 60 Glucose 72 Calcium 7.9 L Total Bilirubin 0.4 AST 25 ALT 8 Alkaline Phosphatase 98 Total Protein 6.4 Albumin 2.9 L
[2025-10-16] MEDS: oxyCODONE/ACETAMINOPHEN (*CRX) 5-325 MG TABLET 1 TABLET PO ×2 (11:28→17:39)
[2025-10-16 14:00] VITALS: BP 114/60; PULSE 92; RESP 20; TEMP 35.7; O2SAT 97
[2025-10-16 20:00] VITALS: BP 109/65; PULSE 86; RESP 16; TEMP 36.6; O2SAT 99
[2025-10-16] MEDS: ATORVASTATIN 20 MG TABLET PO (21:10)
[2025-10-16 22:00] VITALS: BP 109/65; PULSE 86; RESP 16; TEMP 36.6; O2SAT 99
[2025-10-17] MEDS: oxyCODONE/ACETAMINOPHEN (*CRX) 5-325 MG TABLET 1 TABLET PO ×4 (00:14→22:06)
[2025-10-17 05:15] VITALS: BP 97/63; PULSE 75; RESP 14; TEMP 37.1; O2SAT 98
[2025-10-17] MEDS: PREGABALIN (*CRX) 50 MG CAPSULE 100 MG PO ×3 (06:07→22:06)
[2025-10-17] MEDS: LEVOTHYROXINE SODIUM 50 MCG TABLET PO (06:07)
[2025-10-17 06:34] LABS: Hematocrit 31.9 % (42.0-52.0); Hemoglobin 10.1 g/dL (14.0-18.0); Immature Granulocyte Percent A 0.4 % (0-0.5); Lymphocytes Absolute Auto 2.67 K/mm3 (0.9-3.2); Mean Corpuscular HGB Conc 31.7 g/dl (32-36); Mean Corpuscular Hemoglobin 29.4 pg (26-34); Mean Corpuscular Volume 93.0 fl (80-100); Nucleated Red Blood Cells Absolute Auto 0.000 K/mm3 (0.0-0.012); Nucleated Red Blood Cells Perc 0.0 % (0.0-0.2); Platelet Count Result 317 k/mm3 (150-375); Red Blood Count 3.43 M/mm3 (4.6-6.20); White Blood Count 9.7 K/mm3 (4.5-10.0)
[2025-10-17 06:54] LABS: Alanine Aminotransferase 8 U/L (6-50); Albumin Level 2.8 g/dL (3.5-5.1); Alkaline Phosphatase 80 U/L (38-126); Anion Gap 3 mmol/L (4-12); Aspartate Amino Transferase 26 U/L (17-59); Bilirubin,Total 0.5 mg/dL (0.2-1.3); Blood Urea Nitrogen 26 mg/dL (9-20); Calcium 7.8 mg/dL (8.4-10.2); Carbon Dioxide 31 mmol/L (22-30); Chloride 100 mmol/L (98-107); Estimated CRCL calculation 68 ml/min; Estimated Glomerular Filt Rate > 60; Glucose 76 mg/dL (65-110); Potassium 3.8 mmol/L (3.4-5.0); Sodium 134 mmol/L (137-145); Total Protein 6.2 g/dL (6.3-8.2)
--- NOTE | 2025-10-17 07:16 | P.PNIM_ITS ---
Assessment and Plan Assessment and Plan (1) Cavovarus deformity of foot, acquired: Qualifiers: Laterality: right Qualified Code(s): M21.6X1 - Other acquired deformities of right foot Code(s): M21.6X9 - Other acquired deformities of unspecified foot Status: Acute Assessment and Plan: * S/P right below-knee amputation. Cast in place. * Post op care and pain control per ortho * Plan for acute rehab when medically stable * PT/OT - SNF ([facility]) * Continue IV cefazolin, IV fluids (2) Acquired cavovarus deformity of left foot: Code(s): M21.6X2 - Other acquired deformities of left foot Status: Acute Assessment and Plan: * Custom bracing (3) Hypothyroidism: Code(s): E03.9 - Hypothyroidism, unspecified Status: Acute Assessment and Plan: Continue levothyroxine (4) Hyperlipidemia: Code(s): E78.5 - Hyperlipidemia, unspecified Status: Acute Assessment and Plan: Continue atorvastatin (5) Acute kidney injury superimposed on chronic kidney disease: Code(s): N17.9 - Acute kidney failure, unspecified; N18.9 - Chronic kidney disease, unspecified Status: Acute Assessment and Plan: * Baseline creatinine appears to be around 1.10 * 10/15/2025: Creatinine 1.57 * Continue IV fluids per primary team * Encourage oral intake * Monitor I/Os * Monitor Renal function Subjective Date/time seen: 10/17/25 07:16 Interval history: Patient resting comfortably in bed at time of exam. Continues to report healing/progressing well, minimal complaints. Ortho remains primary. Continue PT/OT. Plan for discharge likely Saturday - accepted at [facility]. No acute changes or concerns at this time. Review of Systems Review of Systems: All systems reviewed & are unremarkable except as noted in HPI and below Exam Const: General: comfortable and no acute distress HENMT: Face/Nose/Sinus: Normal nares present Mouth: Yes moist mucous membranes Eyes: General: appearance normal, both eyes and all related structures Resp: Effort & Inspection: normal respiratory effort Auscultation: clear to auscultation bilaterally Cardio: Rate: regular rate Rhythm: regular rhythm GI: Inspection: non-distended Auscultation: normal bowel sounds Extrem: Other: Cast in place on right lower extremity, clean and dry Objective Data Vital Signs Vital Signs: Vital Signs - 24 hr 10/16/25 08:15 10/16/25 14:00 10/16/25 20:00 Temperature 96.2 F L 97.9 F Pulse Rate 92 86 Respiratory Rate 20 16 Blood Pressure 114/60 109/65 Pulse Oximetry 97 99 Oxygen Delivery Room Air 10/16/25 20:00 10/16/25 22:00 10/17/25 05:15 Temperature 97.9 F 98.8 F Pulse Rate 86 75 Respiratory Rate 16 14 Blood Pressure 109/65 97/63 L Pulse Oximetry 99 98 Oxygen Delivery Room Air Intake/Output Intake/Output: Intake & Output 10/14/25 10/15/25 10/16/25 10/17/25 23:59 23:59 23:59 23:59 Intake Total 472 049 8361 250 Output Total 775 1175 700 450 Balance 215 -375 1420 -200 Meds/Results Medications: Active Medications Generic Name Dose Route Start Last Admin Trade Name Freq PRN Reason Stop Dose Admin Acetaminophen 650 mg 10/14/25 15:32 Acetaminophen 325 Mg Tablet PO Q6H PRN Pain or Fever Atorvastatin Calcium 20 mg 10/14/25 21:00 10/16/25 21:10 Atorvastatin 20 Mg Tablet PO 20 mg HS ASTRID Administration Cyanocobalamin 1,000 mcg 10/15/25 09:00 10/16/25 08:17 Cyanocobalamin 1,000 Mcg Tablet PO 1,000 mcg DAILY ASTRID Administration Diazepam 5 mg 10/14/25 15:32 Diazepam (*Crx) 5 Mg Tablet PO Q8H PRN Muscle Spasm Ergocalciferol 1,250 mcg 10/20/25 09:00 Ergocalciferol (Vitamin D2) 1,250 Mcg (50,000 Units) Capsule PO We@0900 ASTRID Fludrocortisone Acetate 0.2 mg 10/15/25 09:00 10/16/25 08:16 Fludrocortisone Acetate 0.1 Mg Tablet PO 0.2 mg DAILY ASTRID Administration Fluticasone/Umeclidinium/Vilanterol 1 puff 10/15/25 08:00 10/15/25 10:00 Fluticasone/Umeclidin/Vilanter 100-62.5-25 Mcg Ellipta INHALATION Not Given DAILYRT ASTRID Furosemide 40 mg 10/15/25 09:00 10/16/25 08:16 Furosemide 40 Mg Tablet PO 40 mg DAILY ASTRID Administration Hydroxyzine HCl 25 mg 10/14/25 15:32 Hydroxyzine Hcl 25 Mg Tablet PO BID PRN Itching Ibuprofen 800 mg in 200 mls @ 400 mls/hr 10/14/25 15:32 Caldolor 800 Mg/200 Ml IVPB Q6H PRN Pain Rated 4-6 Levothyroxine Sodium 50 mcg 10/15/25 06:30 10/17/25 06:07 Levothyroxine Sodium 50 Mcg Tablet PO 50 mcg DAILY@0630 ASTRID Administration Magnesium Hydroxide 30 ml 10/14/25 15:32 Magnesium Hydroxide Susp 30 Ml Udc PO BID PRN Constipation Morphine Sulfate 3 mg 10/14/25 15:32 Morphine Sulfate (*Crx) 4 Mg/Ml Inj IV PUSH Q3H PRN Pain Rated 7-10 Naloxone HCl 0.1 mg 10/14/25 15:32 Naloxone Hcl 0.4 Mg/Ml Vial IV PUSH Q2M PRN Opiate Reversal Niacin 1,000 mg 10/14/25 21:00 10/16/25 21:10 Niacin Sa 500 Mg Tablet PO 1,000 mg HS ASTRID Administration Ondansetron HCl 4 mg 10/14/25 15:32 Ondansetron Inj 4 Mg/2 Ml Vial IV PUSH Q4H PRN Nausea And Vomiting Oxycodone/Acetaminophen 1 tablet 10/14/25 15:32 10/17/25 06:07 Oxycodone/Acetaminophen (*Crx) 5-325 Mg Tablet PO 1 tablet Q6H PRN Administration PAIN RATED 7-10 Pantoprazole Sodium 40 mg 10/15/25 09:00 10/16/25 08:17 Pantoprazole 40 Mg Tablet PO 40 mg QAM ASTRID Administration Polyethylene Glycol 17 gm 10/15/25 09:00 10/16/25 08:16 Polyethylene Glycol 3350 17 Gm Powd.Pack PO 17 gm QAM ASTRID Administration Potassium Chloride 20 meq 10/15/25 09:00 10/16/25 08:16 Potassium Chloride 20 Meq Er Tablet PO 20 meq DAILY ASTRID Administration Pregabalin 100 mg 10/14/25 22:00 10/17/25 06:07 Pregabalin (*Crx) 50 Mg Capsule PO 100 mg Q8HR ASTRID Administration Rivaroxaban 10 mg 10/15/25 09:00 10/16/25 08:16 Rivaroxaban 10 Mg Tablet PO 10 mg QAM ASTRID Administration Senna/Docusate Sodium 2 tab 10/14/25 17:00 10/16/25 16:49 Senna/Docusate Sodium Tablet PO 2 tab BID ASTRID Administration Labs Labs: Laboratory Results - last 24 hr 10/16/25 10/17/25 07:33 05:34 WBC 12.1 H 9.7 RBC 3.51 L 3.43 L Hgb 10.3 L 10.1 L Hct 32.6 L 31.9 L MCV 92.9 93.0 MCH 29.3 29.4 MCHC 31.6 L 31.7 L RDW 16.4 H 16.5 H Plt Count 300 317 MPV 9.1 9.8 Immature Gran % (Auto) 0.3 0.4 Neut % (Auto) 59.9 50.4 Lymph % (Auto) 25.7 27.7 [place] % (Auto) 9.7 H 14.0 H Eos % (Auto) 4.0 6.9 H Baso % (Auto) 0.4 0.6 Lymph # (Auto) 3.12 2.67 [place] # (Auto) 1.2 H 1.4 H Eos # (Auto) 0.5 H 0.7 H Baso # (Auto) 0.1 0.1 Abs Immat Gran (auto) 0.04 H 0.04 H Absolute Neuts (auto) 7.3 H 4.9 Absolute Nucleated RBC 0.000 0.000 Nucleated RBC % 0.0 0.0 Sodium 136 L 134 L Potassium 4.0 3.8 Chloride 102 100 Carbon Dioxide 30 31 H Anion Gap 4 3 L BUN 27 H 26 H Creatinine 1.17 1.01 Estim Creat Clear Calc 59 68 Estimated GFR > 60 > 60 Glucose 72 76 Calcium 7.9 L 7.8 L Total Bilirubin 0.4 0.5 AST 25 26 ALT 8 8 Alkaline Phosphatase 98 80 Total Protein 6.4 6.2 L Albumin 2.9 L 2.8 L
[2025-10-17 08:30] VITALS: PULSE 75; RESP 14; O2SAT 98
[2025-10-17] MEDS: CYANOCOBALAMIN 1,000 MCG TABLET 1000 MCG PO (08:33)
[2025-10-17] MEDS: FLUDROCORTISONE ACETATE 0.1 MG TABLET 0.2 MG PO (08:33)
[2025-10-17] MEDS: PANTOPRAZOLE 40 MG TABLET PO (08:33)
[2025-10-17] MEDS: POTASSIUM CHLORIDE 20 MEQ ER TABLET PO (08:33)
[2025-10-17] MEDS: SENNA/DOCUSATE SODIUM TABLET 2 TAB PO ×2 (08:33→16:35)
[2025-10-17] MEDS: RIVAROXABAN 10 MG TABLET PO (08:33)
[2025-10-17] MEDS: MORPHINE SULFATE (*CRX) 4 MG/ML INJ 3 MG IV PUSH (08:33)
[2025-10-17] MEDS: FUROSEMIDE 40 MG TABLET PO (08:37)
--- NOTE | 2025-10-17 12:02 | PCRCNOTE ---
Window of time for administration has passed. See next scheduled administration.
[2025-10-17 14:00] VITALS: BP 102/71; PULSE 78; RESP 19; TEMP 35.9; O2SAT 99
[2025-10-17 20:55] VITALS: BP 128/80; PULSE 89; RESP 16; TEMP 36.4; O2SAT 99
[2025-10-17] MEDS: ATORVASTATIN 20 MG TABLET PO (22:06)
[2025-10-18 05:10] VITALS: BP 131/71; PULSE 63; RESP 20; TEMP 36.6; O2SAT 92
[2025-10-18] MEDS: PREGABALIN (*CRX) 50 MG CAPSULE 100 MG PO ×3 (05:32→21:00)
[2025-10-18] MEDS: oxyCODONE/ACETAMINOPHEN (*CRX) 5-325 MG TABLET 1 TABLET PO ×2 (05:33→21:01)
[2025-10-18] MEDS: LEVOTHYROXINE SODIUM 50 MCG TABLET PO (05:33)
[2025-10-18 06:41] LABS: Hematocrit 33.8 % (42.0-52.0); Hemoglobin 10.7 g/dL (14.0-18.0); Immature Granulocyte Percent A 0.5 % (0-0.5); Lymphocytes Absolute Auto 2.63 K/mm3 (0.9-3.2); Mean Corpuscular HGB Conc 31.7 g/dl (32-36); Mean Corpuscular Hemoglobin 29.5 pg (26-34); Mean Corpuscular Volume 93.1 fl (80-100); Nucleated Red Blood Cells Absolute Auto 0.000 K/mm3 (0.0-0.012); Nucleated Red Blood Cells Perc 0.0 % (0.0-0.2); Platelet Count Result 288 k/mm3 (150-375); Red Blood Count 3.63 M/mm3 (4.6-6.20); White Blood Count 8.9 K/mm3 (4.5-10.0)
[2025-10-18 07:08] LABS: Alanine Aminotransferase 9 U/L (6-50); Albumin Level 2.8 g/dL (3.5-5.1); Alkaline Phosphatase 88 U/L (38-126); Anion Gap 2 mmol/L (4-12); Aspartate Amino Transferase 28 U/L (17-59); Bilirubin,Total 0.5 mg/dL (0.2-1.3); Blood Urea Nitrogen 24 mg/dL (9-20); Calcium 7.7 mg/dL (8.4-10.2); Carbon Dioxide 32 mmol/L (22-30); Chloride 98 mmol/L (98-107); Estimated CRCL calculation 76 ml/min; Estimated Glomerular Filt Rate > 60; Glucose 74 mg/dL (65-110); Potassium 3.5 mmol/L (3.4-5.0); Sodium 132 mmol/L (137-145); Total Protein 6.2 g/dL (6.3-8.2)
[2025-10-18] MEDS: FLUTICASONE/UMECLIDIN/VILANTER 100-62.5-25 MCG ELLIPTA 1 PUFF INHALATION (08:35)
[2025-10-18 08:36] VITALS: PULSE 90; RESP 20; O2SAT 95
[2025-10-18] MEDS: FLUDROCORTISONE ACETATE 0.1 MG TABLET 0.2 MG PO (09:15)
[2025-10-18] MEDS: POTASSIUM CHLORIDE 20 MEQ ER TABLET PO (09:15)
[2025-10-18] MEDS: SENNA/DOCUSATE SODIUM TABLET 2 TAB PO (09:15)
[2025-10-18] MEDS: CYANOCOBALAMIN 1,000 MCG TABLET 1000 MCG PO (09:15)
[2025-10-18] MEDS: FUROSEMIDE 40 MG TABLET PO (09:15)
[2025-10-18] MEDS: RIVAROXABAN 10 MG TABLET PO (09:15)
[2025-10-18] MEDS: PANTOPRAZOLE 40 MG TABLET PO (09:16)
--- NOTE | 2025-10-18 10:34 | P.PNIM_ITS ---
Assessment and Plan Assessment and Plan (1) Cavovarus deformity of foot, acquired: Qualifiers: Laterality: right Qualified Code(s): M21.6X1 - Other acquired deformities of right foot Code(s): M21.6X9 - Other acquired deformities of unspecified foot Status: Acute Assessment and Plan: * S/P right below-knee amputation. Cast in place. * Post op care and pain control per ortho * Plan for acute rehab when medically stable * PT/OT - SNF ([facility]) * Continue IV cefazolin, IV fluids * Ortho remains primary (2) Acquired cavovarus deformity of left foot: Code(s): M21.6X2 - Other acquired deformities of left foot Status: Acute Assessment and Plan: * Custom bracing (3) Hypothyroidism: Code(s): E03.9 - Hypothyroidism, unspecified Status: Acute Assessment and Plan: Continue levothyroxine (4) Hyperlipidemia: Code(s): E78.5 - Hyperlipidemia, unspecified Status: Acute Assessment and Plan: Continue atorvastatin (5) Acute kidney injury superimposed on chronic kidney disease: Code(s): N17.9 - Acute kidney failure, unspecified; N18.9 - Chronic kidney disease, unspecified Status: Acute Assessment and Plan: * Baseline creatinine appears to be around 1.10 * 10/15/2025: Creatinine 1.57 * Continue IV fluids per primary team * Encourage oral intake * Monitor I/Os * Monitor Renal function * Resolved Subjective Date/time seen: 10/18/25 10:34 Interval history: Patient resting comfortably in bed at time of exam. Continues to report healing/progressing well, minimal complaints. Ortho remains primary. Continue PT/OT. Plan for discharge likely today - accepted at [facility]. No acute changes or concerns at this time. Ortho remains primary. Review of Systems Review of Systems: All systems reviewed & are unremarkable except as noted in HPI and below Exam Const: General: comfortable and no acute distress HENMT: Face/Nose/Sinus: Normal nares present Mouth: Yes moist mucous membranes Eyes: General: appearance normal, both eyes and all related structures Resp: Effort & Inspection: normal respiratory effort Auscultation: clear to auscultation bilaterally Cardio: Rate: regular rate Rhythm: regular rhythm GI: Inspection: non-distended Auscultation: normal bowel sounds Extrem: Other: Cast in place on right lower extremity, clean and dry Objective Data Vital Signs Vital Signs: Vital Signs - 24 hr 10/17/25 14:00 10/17/25 20:00 10/17/25 20:55 Temperature 96.7 F L 97.5 F L Pulse Rate 78 89 Respiratory Rate 19 16 Blood Pressure 102/71 128/80 Pulse Oximetry 99 99 Oxygen Delivery Room Air 10/18/25 05:10 10/18/25 08:00 10/18/25 08:36 Temperature 97.8 F Pulse Rate 63 90 Respiratory Rate 20 20 Blood Pressure 131/71 Pulse Oximetry 92 95 Oxygen Delivery Room Air Room Air 10/18/25 08:36 Temperature Pulse Rate 90 Respiratory Rate 20 Blood Pressure Pulse Oximetry Oxygen Delivery Intake/Output Intake/Output: Intake & Output 10/15/25 10/16/25 10/17/25 10/18/25 23:59 23:59 23:59 23:59 Intake Total 800 2120 900 800 Output Total 1175 700 950 625 Balance -375 1420 -50 175 Meds/Results Medications: Active Medications Generic Name Dose Route Start Last Admin Trade Name Freq PRN Reason Stop Dose Admin Acetaminophen 650 mg 10/14/25 15:32 Acetaminophen 325 Mg Tablet PO Q6H PRN Pain or Fever Atorvastatin Calcium 20 mg 10/14/25 21:00 10/17/25 22:06 Atorvastatin 20 Mg Tablet PO 20 mg HS ASTRID Administration Cyanocobalamin 1,000 mcg 10/15/25 09:00 10/18/25 09:15 Cyanocobalamin 1,000 Mcg Tablet PO 1,000 mcg DAILY ASTRID Administration Diazepam 5 mg 10/14/25 15:32 Diazepam (*Crx) 5 Mg Tablet PO Q8H PRN Muscle Spasm Ergocalciferol 1,250 mcg 10/20/25 09:00 Ergocalciferol (Vitamin D2) 1,250 Mcg (50,000 Units) Capsule PO We@0900 ASTRID Fludrocortisone Acetate 0.2 mg 10/15/25 09:00 10/18/25 09:15 Fludrocortisone Acetate 0.1 Mg Tablet PO 0.2 mg DAILY ASTRID Administration Fluticasone/Umeclidinium/Vilanterol 1 puff 10/15/25 08:00 10/18/25 08:35 Fluticasone/Umeclidin/Vilanter 100-62.5-25 Mcg Ellipta INHALATION 1 puff DAILYRT ASTRID Administration Furosemide 40 mg 10/15/25 09:00 10/18/25 09:15 Furosemide 40 Mg Tablet PO 40 mg DAILY ASTRID Administration Hydroxyzine HCl 25 mg 10/14/25 15:32 Hydroxyzine Hcl 25 Mg Tablet PO BID PRN Itching Ibuprofen 800 mg in 200 mls @ 400 mls/hr 10/14/25 15:32 Caldolor 800 Mg/200 Ml IVPB Q6H PRN Pain Rated 4-6 Levothyroxine Sodium 50 mcg 10/15/25 06:30 10/18/25 05:33 Levothyroxine Sodium 50 Mcg Tablet PO 50 mcg DAILY@0630 ASTRID Administration Magnesium Hydroxide 30 ml 10/14/25 15:32 Magnesium Hydroxide Susp 30 Ml Udc PO BID PRN Constipation Morphine Sulfate 3 mg 10/14/25 15:32 10/17/25 08:33 Morphine Sulfate (*Crx) 4 Mg/Ml Inj IV PUSH 3 mg Q3H PRN Administration Pain Rated 7-10 Naloxone HCl 0.1 mg 10/14/25 15:32 Naloxone Hcl 0.4 Mg/Ml Vial IV PUSH Q2M PRN Opiate Reversal Niacin 1,000 mg 10/14/25 21:00 10/17/25 22:06 Niacin Sa 500 Mg Tablet PO 1,000 mg HS ASTRID Administration Ondansetron HCl 4 mg 10/14/25 15:32 Ondansetron Inj 4 Mg/2 Ml Vial IV PUSH Q4H PRN Nausea And Vomiting Oxycodone/Acetaminophen 1 tablet 10/14/25 15:32 10/18/25 05:33 Oxycodone/Acetaminophen (*Crx) 5-325 Mg Tablet PO 1 tablet Q6H PRN Administration PAIN RATED 7-10 Pantoprazole Sodium 40 mg 10/15/25 09:00 10/18/25 09:16 Pantoprazole 40 Mg Tablet PO 40 mg QAM ASTRID Administration Polyethylene Glycol 17 gm 10/15/25 09:00 10/18/25 09:18 Polyethylene Glycol 3350 17 Gm Powd.Pack PO Not Given QAM ASTRID Potassium Chloride 20 meq 10/15/25 09:00 10/18/25 09:15 Potassium Chloride 20 Meq Er Tablet PO 20 meq DAILY ASTRID Administration Pregabalin 100 mg 10/14/25 22:00 10/18/25 05:32 Pregabalin (*Crx) 50 Mg Capsule PO 100 mg Q8HR ASTRID Administration Rivaroxaban 10 mg 10/15/25 09:00 10/18/25 09:15 Rivaroxaban 10 Mg Tablet PO 10 mg QAM ASTRID Administration Senna/Docusate Sodium 2 tab 10/14/25 17:00 10/18/25 09:15 Senna/Docusate Sodium Tablet PO 2 tab BID ASTRID Administration Labs Labs: Laboratory Results - last 24 hr 10/18/25 06:14 WBC 8.9 RBC 3.63 L Hgb 10.7 L Hct 33.8 L MCV 93.1 MCH 29.5 MCHC 31.7 L RDW 16.4 H Plt Count 288 MPV 9.3 Immature Gran % (Auto) 0.5 Neut % (Auto) 50.0 Lymph % (Auto) 29.6 [place] % (Auto) 11.9 H Eos % (Auto) 7.4 H Baso % (Auto) 0.6 Lymph # (Auto) 2.63 [place] # (Auto) 1.1 H Eos # (Auto) 0.7 H Baso # (Auto) 0.1 Abs Immat Gran (auto) 0.04 H Absolute Neuts (auto) 4.4 Absolute Nucleated RBC 0.000 Nucleated RBC % 0.0 Sodium 132 L Potassium 3.5 Chloride 98 Carbon Dioxide 32 H Anion Gap 2 L BUN 24 H Creatinine 0.90 Estim Creat Clear Calc 76 Estimated GFR > 60 Glucose 74 Calcium 7.7 L Total Bilirubin 0.5 AST 28 ALT 9 Alkaline Phosphatase 88 Total Protein 6.2 L Albumin 2.8 L
--- NOTE | 2025-10-18 10:41 | PCOTNOTE ---
Attempted to see Patient at this time. Patient refuses to participate, states he did PT this morning, very hard and can not tolerate more right now. Patient refuses all activity, having to much pain.
--- NOTE | 2025-10-18 13:06 | P.PNOP_ITS ---
Progress Note: A&P Assessment and Plan (1) Cavovarus deformity of foot, acquired: Qualifiers: Laterality: right Qualified Code(s): M21.6X1 - Other acquired deformities of right foot Code(s): M21.6X9 - Other acquired deformities of unspecified foot Status: Acute Assessment and Plan: POD #4: Right BKA Cast in place. Keep c/d/i. Pain control. PT/OT. Dietary supplement to aid in healing. Xarelto continued Dispo: SNF for Rehab [facility] denied patient. (2) Acquired cavovarus deformity of left foot: Code(s): M21.6X2 - Other acquired deformities of left foot Status: Acute Assessment and Plan: Left foot deformity. Plan for custom bracing Subjective Subjective Date/Time Seen: 10/18/25 13:06 Post Op day: 4 Principal diagnosis: right foot deformity Interval history: Patient awake, up in bed. No new complaints. Review of Systems Review of Systems: All systems reviewed & are unremarkable except as noted in HPI and below Exam Const: General: healthy appearing; No in distress or confusion Orientation/consciousness: patient oriented x3 and No confusion HENMT: Head: normal to inspection, normocephalic and atraumatic Eyes: Conjunctivae: conjunctivae normal Sclera: sclerae normal Resp: Effort & Inspection: normal respiratory effort and no audible wheezes Neuro: General: patient oriented x3 and No confusion Extrem: Right lower extremity: knee Details: other ( Cast in place. Clean and dry.) Left lower extremity: ankle Details: normal to inspection; no tenderness, no swelling and no pitting edema and foot Details: vascular exam Details: dorsalis pedis pulse present and normal capillary refill Psych: Affect: normal affect Objective Data Vital Signs Vital Signs: Vital Signs - 24 hr 10/17/25 14:00 10/17/25 20:00 10/17/25 20:55 Temperature 35.9 C L 36.4 C L Pulse Rate 78 89 Respiratory Rate 19 16 Blood Pressure 102/71 128/80 Pulse Oximetry 99 99 Oxygen Delivery Room Air 10/18/25 05:10 10/18/25 08:00 10/18/25 08:36 Temperature 36.6 C Pulse Rate 63 90 Respiratory Rate 20 20 Blood Pressure 131/71 Pulse Oximetry 92 95 Oxygen Delivery Room Air Room Air 10/18/25 08:36 Temperature Pulse Rate 90 Respiratory Rate 20 Blood Pressure Pulse Oximetry Oxygen Delivery Intake/Output Intake/Output: Intake & Output 10/15/25 10/16/25 10/17/25 10/18/25 23:59 23:59 23:59 23:59 Intake Total 800 2120 900 1050 Output Total 1175 700 950 625 Balance -375 1420 -50 425 Meds/Results Medications: Active Medications Generic Name Dose Route Start Last Admin Trade Name Freq PRN Reason Stop Dose Admin Acetaminophen 650 mg 10/14/25 15:32 Acetaminophen 325 Mg Tablet PO Q6H PRN Pain or Fever Atorvastatin Calcium 20 mg 10/14/25 21:00 10/17/25 22:06 Atorvastatin 20 Mg Tablet PO 20 mg HS [facility] Administration Cyanocobalamin 1,000 mcg 10/15/25 09:00 10/18/25 09:15 Cyanocobalamin 1,000 Mcg Tablet PO 1,000 mcg DAILY [facility] Administration Diazepam 5 mg 10/14/25 15:32 Diazepam (*Crx) 5 Mg Tablet PO Q8H PRN Muscle Spasm Ergocalciferol 1,250 mcg 10/20/25 09:00 Ergocalciferol (Vitamin D2) 1,250 Mcg (50,000 Units) Capsule PO We@0900 A[facility] Fludrocortisone Acetate 0.2 mg 10/15/25 09:00 10/18/25 09:15 Fludrocortisone Acetate 0.1 Mg Tablet PO 0.2 mg DAILY [facility] Administration Fluticasone/Umeclidinium/Vilanterol 1 puff 10/15/25 08:00 10/18/25 08:35 Fluticasone/Umeclidin/Vilanter 100-62.5-25 Mcg Ellipta INHALATION 1 puff DAILYRT [facility] Administration Furosemide 40 mg 10/15/25 09:00 10/18/25 09:15 Furosemide 40 Mg Tablet PO 40 mg DAILY [facility] Administration Hydroxyzine HCl 25 mg 10/14/25 15:32 Hydroxyzine Hcl 25 Mg Tablet PO BID PRN Itching Ibuprofen 800 mg in 200 mls @ 400 mls/hr 10/14/25 15:32 Caldolor 800 Mg/200 Ml IVPB Q6H PRN Pain Rated 4-6 Levothyroxine Sodium 50 mcg 10/15/25 06:30 10/18/25 05:33 Levothyroxine Sodium 50 Mcg Tablet PO 50 mcg DAILY@0630 [facility] Administration Magnesium Hydroxide 30 ml 10/14/25 15:32 Magnesium Hydroxide Susp 30 Ml Udc PO BID PRN Constipation Morphine Sulfate 3 mg 10/14/25 15:32 10/17/25 08:33 Morphine Sulfate (*Crx) 4 Mg/Ml Inj IV PUSH 3 mg Q3H PRN Administration Pain Rated 7-10 Naloxone HCl 0.1 mg 10/14/25 15:32 Naloxone Hcl 0.4 Mg/Ml Vial IV PUSH Q2M PRN Opiate Reversal Niacin 1,000 mg 10/14/25 21:00 10/17/25 22:06 Niacin Sa 500 Mg Tablet PO 1,000 mg HS [facility] Administration Ondansetron HCl 4 mg 10/14/25 15:32 Ondansetron Inj 4 Mg/2 Ml Vial IV PUSH Q4H PRN Nausea And Vomiting Oxycodone/Acetaminophen 1 tablet 10/14/25 15:32 10/18/25 05:33 Oxycodone/Acetaminophen (*Crx) 5-325 Mg Tablet PO 1 tablet Q6H PRN Administration PAIN RATED 7-10 Pantoprazole Sodium 40 mg 10/15/25 09:00 10/18/25 09:16 Pantoprazole 40 Mg Tablet PO 40 mg QAM [facility] Administration Polyethylene Glycol 17 gm 10/15/25 09:00 10/18/25 09:18 Polyethylene Glycol 3350 17 Gm Powd.Pack PO Not Given QAM [facility] Potassium Chloride 20 meq 10/15/25 09:00 10/18/25 09:15 Potassium Chloride 20 Meq Er Tablet PO 20 meq DAILY [facility] Administration Pregabalin 100 mg 10/14/25 22:00 10/18/25 05:32 Pregabalin (*Crx) 50 Mg Capsule PO 100 mg Q8HR [facility] Administration Rivaroxaban 10 mg 10/15/25 09:00 10/18/25 09:15 Rivaroxaban 10 Mg Tablet PO 10 mg QAM [facility] Administration Senna/Docusate Sodium 2 tab 10/14/25 17:00 10/18/25 09:15 Senna/Docusate Sodium Tablet PO 2 tab BID [facility] Administration Labs Labs: Laboratory Results - last 24 hr 10/18/25 06:14 WBC 8.9 RBC 3.63 L Hgb 10.7 L Hct 33.8 L MCV 93.1 MCH 29.5 MCHC 31.7 L RDW 16.4 H Plt Count 288 MPV 9.3 Immature Gran % (Auto) 0.5 Neut % (Auto) 50.0 Lymph % (Auto) 29.6 [place] % (Auto) 11.9 H Eos % (Auto) 7.4 H Baso % (Auto) 0.6 Lymph # (Auto) 2.63 [place] # (Auto) 1.1 H Eos # (Auto) 0.7 H Baso # (Auto) 0.1 Abs Immat Gran (auto) 0.04 H Absolute Neuts (auto) 4.4 Absolute Nucleated RBC 0.000 Nucleated RBC % 0.0 Sodium 132 L Potassium 3.5 Chloride 98 Carbon Dioxide 32 H Anion Gap 2 L BUN 24 H Creatinine 0.90 Estim Creat Clear Calc 76 Estimated GFR > 60 Glucose 74 Calcium 7.7 L Total Bilirubin 0.5 AST 28 ALT 9 Alkaline Phosphatase 88 Total Protein 6.2 L Albumin 2.8 L
[2025-10-18 13:57] VITALS: BP 117/69; PULSE 86; RESP 20; TEMP 35.7; O2SAT 99
[2025-10-18] MEDS: ATORVASTATIN 20 MG TABLET PO (21:01)
[2025-10-18 21:30] VITALS: BP 120/85; PULSE 87; RESP 16; TEMP 36.9; O2SAT 99
[2025-10-19 05:39] LABS: Hematocrit 32.2 % (42.0-52.0); Hemoglobin 10.4 g/dL (14.0-18.0); Immature Granulocyte Percent A 0.3 % (0-0.5); Lymphocytes Absolute Auto 2.42 K/mm3 (0.9-3.2); Mean Corpuscular HGB Conc 32.3 g/dl (32-36); Mean Corpuscular Hemoglobin 30.1 pg (26-34); Mean Corpuscular Volume 93.1 fl (80-100); Nucleated Red Blood Cells Absolute Auto 0.000 K/mm3 (0.0-0.012); Nucleated Red Blood Cells Perc 0.0 % (0.0-0.2); Platelet Count Result 311 k/mm3 (150-375); Red Blood Count 3.46 M/mm3 (4.6-6.20); White Blood Count 9.3 K/mm3 (4.5-10.0)
[2025-10-19] MEDS: PREGABALIN (*CRX) 50 MG CAPSULE 100 MG PO (05:55)
[2025-10-19] MEDS: oxyCODONE/ACETAMINOPHEN (*CRX) 5-325 MG TABLET 1 TABLET PO (05:56)
[2025-10-19] MEDS: LEVOTHYROXINE SODIUM 50 MCG TABLET PO (05:57)
[2025-10-19 06:00] LABS: Alanine Aminotransferase 10 U/L (6-50); Albumin Level 2.9 g/dL (3.5-5.1); Alkaline Phosphatase 93 U/L (38-126); Anion Gap 4 mmol/L (4-12); Aspartate Amino Transferase 29 U/L (17-59); Bilirubin,Total 0.5 mg/dL (0.2-1.3); Blood Urea Nitrogen 23 mg/dL (9-20); Calcium 8.0 mg/dL (8.4-10.2); Carbon Dioxide 33 mmol/L (22-30); Chloride 99 mmol/L (98-107); Estimated CRCL calculation 78 ml/min; Estimated Glomerular Filt Rate > 60; Glucose 86 mg/dL (65-110); Potassium 3.2 mmol/L (3.4-5.0); Sodium 136 mmol/L (137-145); Total Protein 6.5 g/dL (6.3-8.2)
[2025-10-19 06:12] VITALS: BP 115/76; PULSE 70; RESP 16; TEMP 36.7; O2SAT 100
[2025-10-19] MEDS: POTASSIUM CHLORIDE 20 MEQ PACKET (FOR LIQUID) PO (08:52)
[2025-10-19] MEDS: POTASSIUM CHLORIDE 20 MEQ ER TABLET PO (08:52)
[2025-10-19] MEDS: CYANOCOBALAMIN 1,000 MCG TABLET 1000 MCG PO (08:52)
[2025-10-19] MEDS: PANTOPRAZOLE 40 MG TABLET PO (08:53)
[2025-10-19] MEDS: FUROSEMIDE 40 MG TABLET PO (08:53)
[2025-10-19] MEDS: FLUDROCORTISONE ACETATE 0.1 MG TABLET 0.2 MG PO (08:53)
[2025-10-19] MEDS: RIVAROXABAN 10 MG TABLET PO (08:53)
[2025-10-19 08:58] VITALS: PULSE 83; RESP 16; O2SAT 96
[2025-10-19] MEDS: FLUTICASONE/UMECLIDIN/VILANTER 100-62.5-25 MCG ELLIPTA 1 PUFF INHALATION (08:58)
--- NOTE | 2025-10-19 09:22 | P.PNOP_ITS ---
Progress Note: A&P Assessment and Plan (1) Cavovarus deformity of foot, acquired: Qualifiers: Laterality: right Qualified Code(s): M21.6X1 - Other acquired deformities of right foot Code(s): M21.6X9 - Other acquired deformities of unspecified foot Status: Acute Assessment and Plan: POD #5: Right BKA Cast in place. Keep c/d/i. Pain control. PT/OT. Dietary supplement to aid in healing. Xarelto continued Dispo: SNF for Rehab [facility] denied patient. (2) Acquired cavovarus deformity of left foot: Code(s): M21.6X2 - Other acquired deformities of left foot Status: Acute Assessment and Plan: Left foot deformity. Plan for custom bracing Time Spent With Patient Time: Reviewed history, exam, radiographs and current labs with attending MD and covering surgeon, Dr. Levy, who agrees with current plan as indicated above. No further recommendations from Dr. Levy at this time. Subjective Subjective Date/Time Seen: 10/19/25 09:22 Post Op day: 5 Principal diagnosis: right foot deformity Interval history: Patient awake, up in bed. No new complaints. Review of Systems Review of Systems: All systems reviewed & are unremarkable except as noted in HPI and below Exam Const: General: healthy appearing; No in distress or confusion Orientation/consciousness: patient oriented x3 and No confusion HENMT: Head: normal to inspection, normocephalic and atraumatic Eyes: Conjunctivae: conjunctivae normal Sclera: sclerae normal Resp: Effort & Inspection: normal respiratory effort and no audible wheezes Neuro: General: patient oriented x3 and No confusion Extrem: Right lower extremity: knee Details: other ( Cast in place. Clean and dry.) Left lower extremity: ankle Details: normal to inspection; no tenderness, no swelling and no pitting edema and foot Details: vascular exam Details: dorsalis pedis pulse present and normal capillary refill Psych: Affect: normal affect Objective Data Vital Signs Vital Signs: Vital Signs - 24 hr 10/18/25 13:57 10/18/25 20:00 10/18/25 21:30 Temperature 35.7 C L 36.9 C Pulse Rate 86 87 Respiratory Rate 20 16 Blood Pressure 117/69 120/85 Pulse Oximetry 99 99 Oxygen Delivery Room Air 10/19/25 06:12 Temperature 36.7 C Pulse Rate 70 Respiratory Rate 16 Blood Pressure 115/76 Pulse Oximetry 100 Oxygen Delivery Intake/Output Intake/Output: Intake & Output 10/16/25 10/17/25 10/18/25 10/19/25 23:59 23:59 23:59 23:59 Intake Total 2120 900 1750 340 Output Total 296 804 7614 300 Balance 1420 -50 200 40 Meds/Results Medications: Active Medications Generic Name Dose Route Start Last Admin Trade Name Freq PRN Reason Stop Dose Admin Acetaminophen 650 mg 10/14/25 15:32 Acetaminophen 325 Mg Tablet PO Q6H PRN Pain or Fever Atorvastatin Calcium 20 mg 10/14/25 21:00 10/18/25 21:01 Atorvastatin 20 Mg Tablet PO 20 mg HS [facility] Administration Cyanocobalamin 1,000 mcg 10/15/25 09:00 10/19/25 08:52 Cyanocobalamin 1,000 Mcg Tablet PO 1,000 mcg DAILY [facility] Administration Diazepam 5 mg 10/14/25 15:32 Diazepam (*Crx) 5 Mg Tablet PO Q8H PRN Muscle Spasm Ergocalciferol 1,250 mcg 10/20/25 09:00 Ergocalciferol (Vitamin D2) 1,250 Mcg (50,000 Units) Capsule PO We@0900 [facility] Fludrocortisone Acetate 0.2 mg 10/15/25 09:00 10/19/25 08:53 Fludrocortisone Acetate 0.1 Mg Tablet PO 0.2 mg DAILY [facility] Administration Fluticasone/Umeclidinium/Vilanterol 1 puff 10/15/25 08:00 10/19/25 08:58 Fluticasone/Umeclidin/Vilanter 100-62.5-25 Mcg Ellipta INHALATION 1 puff DAILYRT [facility] Administration Furosemide 40 mg 10/15/25 09:00 10/19/25 08:53 Furosemide 40 Mg Tablet PO 40 mg DAILY [facility] Administration Hydroxyzine HCl 25 mg 10/14/25 15:32 Hydroxyzine Hcl 25 Mg Tablet PO BID PRN Itching Ibuprofen 800 mg in 200 mls @ 400 mls/hr 10/14/25 15:32 Caldolor 800 Mg/200 Ml IVPB Q6H PRN Pain Rated 4-6 Levothyroxine Sodium 50 mcg 10/15/25 06:30 10/19/25 05:57 Levothyroxine Sodium 50 Mcg Tablet PO 50 mcg DAILY@0630 ASRT[facility] Administration Magnesium Hydroxide 30 ml 10/14/25 15:32 Magnesium Hydroxide Susp 30 Ml Udc PO BID PRN Constipation Morphine Sulfate 3 mg 10/14/25 15:32 10/17/25 08:33 Morphine Sulfate (*Crx) 4 Mg/Ml Inj IV PUSH 3 mg Q3H PRN Administration Pain Rated 7-10 Naloxone HCl 0.1 mg 10/14/25 15:32 Naloxone Hcl 0.4 Mg/Ml Vial IV PUSH Q2M PRN Opiate Reversal Niacin 1,000 mg 10/14/25 21:00 10/18/25 21:00 Niacin Sa 500 Mg Tablet PO 1,000 mg HS ASTRID Administration Ondansetron HCl 4 mg 10/14/25 15:32 Ondansetron Inj 4 Mg/2 Ml Vial IV PUSH Q4H PRN Nausea And Vomiting Oxycodone/Acetaminophen 1 tablet 10/14/25 15:32 10/19/25 05:56 Oxycodone/Acetaminophen (*Crx) 5-325 Mg Tablet PO 1 tablet Q6H PRN Administration PAIN RATED 7-10 Pantoprazole Sodium 40 mg 10/15/25 09:00 10/19/25 08:53 Pantoprazole 40 Mg Tablet PO 40 mg QAM [facility] Administration Polyethylene Glycol 17 gm 10/15/25 09:00 10/19/25 08:53 Polyethylene Glycol 3350 17 Gm Powd.Pack PO Not Given QAM [facility] Potassium Chloride 20 meq 10/15/25 09:00 10/19/25 08:52 Potassium Chloride 20 Meq Er Tablet PO 20 meq DAILY ASTRID Administration Pregabalin 100 mg 10/14/25 22:00 10/19/25 05:55 Pregabalin (*Crx) 50 Mg Capsule PO 100 mg Q8HR ASTRID Administration Rivaroxaban 10 mg 10/15/25 09:00 10/19/25 08:53 Rivaroxaban 10 Mg Tablet PO 10 mg QAM [facility] Administration Senna/Docusate Sodium 2 tab 10/14/25 17:00 10/19/25 08:53 Senna/Docusate Sodium Tablet PO Not Given BID [facility] Labs Labs: Laboratory Results - last 24 hr 10/19/25 05:27 WBC 9.3 RBC 3.46 L Hgb 10.4 L Hct 32.2 L MCV 93.1 MCH 30.1 MCHC 32.3 RDW 16.4 H Plt Count 311 MPV 9.4 Immature Gran % (Auto) 0.3 Neut % (Auto) 52.8 Lymph % (Auto) 26.1 [place] % (Auto) 12.8 H Eos % (Auto) 7.5 H Baso % (Auto) 0.5 Lymph # (Auto) 2.42 [place] # (Auto) 1.2 H Eos # (Auto) 0.7 H Baso # (Auto) 0.1 Abs Immat Gran (auto) 0.03 Absolute Neuts (auto) 4.9 Absolute Nucleated RBC 0.000 Nucleated RBC % 0.0 Sodium 136 L Potassium 3.2 L Chloride 99 Carbon Dioxide 33 H Anion Gap 4 BUN 23 H Creatinine 0.87 Estim Creat Clear Calc 78 Estimated GFR > 60 Glucose 86 Calcium 8.0 L Total Bilirubin 0.5 AST 29 ALT 10 Alkaline Phosphatase 93 Total Protein 6.5 Albumin 2.9 L
--- NOTE | 2025-10-19 09:31 | P.DS_ITS ---
DS: Admitting Diagnosis Discharge Date 10/19/2025 Admitting Diagnosis Right Foot Deformity, Neuropathy DS: Discharge Diagnosis Discharge Diagnosis (1) Cavovarus deformity of foot, acquired: Qualifiers: Laterality: right Qualified Code(s): M21.6X1 - Other acquired deformities of right foot Code(s): M21.6X9 - Other acquired deformities of unspecified foot Status: Acute Assessment and Plan: POD #5: Right BKA Cast in place. Keep c/d/i. Pain control. PT/OT. Dietary supplement to aid in healing. Xarelto continued Dispo: SNF for Rehab [facility] denied patient. (2) Acquired cavovarus deformity of left foot: Code(s): M21.6X2 - Other acquired deformities of left foot Status: Acute Assessment and Plan: Left foot deformity. Plan for custom bracing DS: Summary Hospital Course Reason for hospitalization: Right BKA Hospital Course: 70 year old male admitted s/p Right BKA for postoperative medical management, pain control and mobilization with PT/OT. Patient progressed well with PT/OT. Pain and vitals remained stable throughout. The patient has been cleared to be discharged to a custodial facility at this time. All discharge care instructions reviewed at depth. New medications reviewed. Follow up planned for 10/26 weeks in the outpatient orthopedic clinic with Dr. Cantu. Dr. Cantu in agreement with safe discharge at this time. Status at Discharge Functional status at discharge: wheelchair bound Overall status at discharge: patient is progressing back to baseline Time Spent with Patient Time attestation: Total time spent providing and/or coordinating discharge services: Exam Const: General: healthy appearing; No in distress or confusion Orientation/consciousness: patient oriented x3 and No confusion HENMT: Head: normal to inspection, normocephalic and atraumatic Eyes: Conjunctivae: conjunctivae normal Sclera: sclerae normal Resp: Effort & Inspection: normal respiratory effort and no audible wheezes Neuro: General: patient oriented x3 and No confusion Extrem: Right lower extremity: knee Details: other ( Cast in place. Clean and dry.) Left lower extremity: ankle Details: normal to inspection; no tenderness, no swelling and no pitting edema and foot Details: vascular exam Details: dorsalis pedis pulse present and normal capillary refill Psych: Affect: normal affect DS: Data Data Completed and Pending Completed studies during hospitalization: Pending at discharge 10/14/25 13:06 Surgical [PTH] Routine Labs on day of discharge: Labs from last 24 hours 10/19/25 05:27 WBC 9.3 RBC 3.46 L Hgb 10.4 L Hct 32.2 L MCV 93.1 MCH 30.1 MCHC 32.3 RDW 16.4 H Plt Count 311 MPV 9.4 Immature Gran % (Auto) 0.3 Neut % (Auto) 52.8 Lymph % (Auto) 26.1 [place] % (Auto) 12.8 H Eos % (Auto) 7.5 H Baso % (Auto) 0.5 Lymph # (Auto) 2.42 [place] # (Auto) 1.2 H Eos # (Auto) 0.7 H Baso # (Auto) 0.1 Abs Immat Gran (auto) 0.03 Absolute Neuts (auto) 4.9 Absolute Nucleated RBC 0.000 Nucleated RBC % 0.0 Sodium 136 L Potassium 3.2 L Chloride 99 Carbon Dioxide 33 H Anion Gap 4 BUN 23 H Creatinine 0.87 Estim Creat Clear Calc 78 Estimated GFR > 60 Glucose 86 Calcium 8.0 L Total Bilirubin 0.5 AST 29 ALT 10 Alkaline Phosphatase 93 Total Protein 6.5 Albumin 2.9 L Discharge Plan Discharge Attending physician on discharge: Mele Cantu Consulting providers: Darrel Diaz; Sharla Krishnamurthy Discharging Clinician: Mele Cantu Patient Disposition: SNF Activity: may shower Diet: as tolerated and regular Wound Care Instructions: keep dressing dry Discharge Instructions: MELE CANTU M.D. [facility] [address] [place] [address] [address] [place] [address] POST OPERATIVE DISCHARGE INSTRUCTIONS FOOT/ANKLE SURGERY * Elevate the involved extremity on pillows. * Carefully observe the dressing for evidence of swelling or discoloration. * If the dressing is uncomfortable or tight, call the Dr?s office. * Keep the dressing clean and dry. * If the pain medication does not provide adequate relief, please call Dr?s office. * Take other medication as prescribed. * Please call Dr?s office to confirm follow-up appointment for 1-2 weeks. * If you have any questions, please call the Dr?s office. * Diet as tolerated. * Activity:____X____Restrictions as follows: No weight on operative leg * Additional instructions: Patient Instructions: Rivaroxaban (By mouth) Patient Language: Yoruba Stand Alone Forms: General Discharge Information Follow-up/Referrals: Mele Cantu MD [Physician, Orthopedics] - 10/26/25 9:00 am Discharge Medications: New Xarelto 10 mg Tablet 10 mg PO QAM 24 Days Qty: 24 0RF Continued omeprazole 20 mg capsule,delayed release(DR/EC) 20 mg PO DAILY hydroxyzine HCl 25 mg tablet 25 mg PO BID PRN (Reason: itching) cyanocobalamin (vitamin B-12) 1,000 mcg capsule 1,000 mcg PO DAILY furosemide 40 mg tablet 40 mg PO DAILY atorvastatin 20 mg tablet 20 mg PO HS niacin 1,000 mg tablet extended release 24 hr 1,000 mg PO HS oxycodone-acetaminophen 5-325 mg tablet 1 tablet PO Q6H PRN (Reason: Pain) fludrocortisone 0.1 mg tablet 0.2 mg PO DAILY pregabalin 100 mg capsule 100 mg PO TID potassium chloride 20 mEq tablet extended release 20 meq PO DAILY ergocalciferol (vitamin D2) 25,000 unit Capsule 50,000 unit PO WEEKLY Rx Instructions: Saturday levothyroxine 50 mcg tablet 50 mcg PO DAILY Trelegy Ellipta 100-62.5-25 mcg blister with device 1 inh INHALATION Q24H Date of admission: 10/14/25 15:32 Primary Care Provider: [place] Admitting Provider: Mele Cantu Attending physician on admission: Mele Cantu Condition: Stable
--- NOTE | 2025-10-19 10:35 | P.PNIM_ITS ---
Assessment and Plan Assessment and Plan (1) Cavovarus deformity of foot, acquired: Qualifiers: Laterality: right Qualified Code(s): M21.6X1 - Other acquired deformities of right foot Code(s): M21.6X9 - Other acquired deformities of unspecified foot Status: Acute Assessment and Plan: * S/P right below-knee amputation 10/14/25. Cast in place. * Post op care and pain control per ortho * Plan for acute rehab when medically stable * PT/OT - SNF ([facility]) * Continue IV cefazolin, IV fluids * Ortho remains primary (2) Acquired cavovarus deformity of left foot: Code(s): M21.6X2 - Other acquired deformities of left foot Status: Acute Assessment and Plan: * Custom bracing (3) Hypothyroidism: Code(s): E03.9 - Hypothyroidism, unspecified Status: Acute Assessment and Plan: Continue levothyroxine (4) Hyperlipidemia: Code(s): E78.5 - Hyperlipidemia, unspecified Status: Acute Assessment and Plan: Continue atorvastatin (5) Acute kidney injury superimposed on chronic kidney disease: Code(s): N17.9 - Acute kidney failure, unspecified; N18.9 - Chronic kidney disease, unspecified Status: Acute Assessment and Plan: * Baseline creatinine appears to be around 1.10 * 10/15/2025: Creatinine 1.57 * Continue IV fluids per primary team * Encourage oral intake * Monitor I/Os * Monitor Renal function * Resolved Subjective Date/time seen: 10/19/25 10:35 Interval history: No acute overnight events. Has been accepted at [facility] - plan for discharge today per primary team (ortho). No other recommendations at this time, pt is hemodynamically stable for discharge. Review of Systems Review of Systems: All systems reviewed & are unremarkable except as noted in HPI and below Exam Const: General: comfortable and no acute distress HENMT: Face/Nose/Sinus: Normal nares present Mouth: Yes moist mucous membranes Eyes: General: appearance normal, both eyes and all related structures Resp: Effort & Inspection: normal respiratory effort Auscultation: clear to auscultation bilaterally Cardio: Rate: regular rate Rhythm: regular rhythm GI: Inspection: non-distended Auscultation: normal bowel sounds Extrem: Other: Cast in place on right lower extremity, clean and dry Objective Data Vital Signs Vital Signs: Vital Signs - 24 hr 10/18/25 13:57 10/18/25 20:00 10/18/25 21:30 Temperature 96.2 F L 98.5 F Pulse Rate 86 87 Respiratory Rate 20 16 Blood Pressure 117/69 120/85 Pulse Oximetry 99 99 Oxygen Delivery Room Air 10/19/25 06:12 10/19/25 08:00 Temperature 98.0 F Pulse Rate 70 Respiratory Rate 16 Blood Pressure 115/76 Pulse Oximetry 100 Oxygen Delivery Room Air Intake/Output Intake/Output: Intake & Output 10/16/25 10/17/25 10/18/25 10/19/25 23:59 23:59 23:59 23:59 Intake Total 2120 900 1750 340 Output Total 315 011 7866 300 Balance 1420 -50 200 40 Meds/Results Medications: Active Medications Generic Name Dose Route Start Last Admin Trade Name Freq PRN Reason Stop Dose Admin Acetaminophen 650 mg 10/14/25 15:32 Acetaminophen 325 Mg Tablet PO Q6H PRN Pain or Fever Atorvastatin Calcium 20 mg 10/14/25 21:00 10/18/25 21:01 Atorvastatin 20 Mg Tablet PO 20 mg HS [facility] Administration Cyanocobalamin 1,000 mcg 10/15/25 09:00 10/19/25 08:52 Cyanocobalamin 1,000 Mcg Tablet PO 1,000 mcg DAILY [facility] Administration Diazepam 5 mg 10/14/25 15:32 Diazepam (*Crx) 5 Mg Tablet PO Q8H PRN Muscle Spasm Ergocalciferol 1,250 mcg 10/20/25 09:00 Ergocalciferol (Vitamin D2) 1,250 Mcg (50,000 Units) Capsule PO We@0900 ASTRID Fludrocortisone Acetate 0.2 mg 10/15/25 09:00 10/19/25 08:53 Fludrocortisone Acetate 0.1 Mg Tablet PO 0.2 mg DAILY [facility] Administration Fluticasone/Umeclidinium/Vilanterol 1 puff 10/15/25 08:00 10/19/25 08:58 Fluticasone/Umeclidin/Vilanter 100-62.5-25 Mcg Ellipta INHALATION 1 puff DAILYRT [facility]STR[facility] Administration Furosemide 40 mg 10/15/25 09:00 10/19/25 08:53 Furosemide 40 Mg Tablet PO 40 mg DAILY ASTRID Administration Hydroxyzine HCl 25 mg 10/14/25 15:32 Hydroxyzine Hcl 25 Mg Tablet PO BID PRN Itching Ibuprofen 800 mg in 200 mls @ 400 mls/hr 10/14/25 15:32 Caldolor 800 Mg/200 Ml IVPB Q6H PRN Pain Rated 4-6 Levothyroxine Sodium 50 mcg 10/15/25 06:30 10/19/25 05:57 Levothyroxine Sodium 50 Mcg Tablet PO 50 mcg DAILY@0630 ASTRID Administration Magnesium Hydroxide 30 ml 10/14/25 15:32 Magnesium Hydroxide Susp 30 Ml Udc PO BID PRN Constipation Morphine Sulfate 3 mg 10/14/25 15:32 10/17/25 08:33 Morphine Sulfate (*Crx) 4 Mg/Ml Inj IV PUSH 3 mg Q3H PRN Administration Pain Rated 7-10 Naloxone HCl 0.1 mg 10/14/25 15:32 Naloxone Hcl 0.4 Mg/Ml Vial IV PUSH Q2M PRN Opiate Reversal Niacin 1,000 mg 10/14/25 21:00 10/18/25 21:00 Niacin Sa 500 Mg Tablet PO 1,000 mg HS [facility]STR[facility] Administration Ondansetron HCl 4 mg 10/14/25 15:32 Ondansetron Inj 4 Mg/2 Ml Vial IV PUSH Q4H PRN Nausea And Vomiting Oxycodone/Acetaminophen 1 tablet 10/14/25 15:32 10/19/25 05:56 Oxycodone/Acetaminophen (*Crx) 5-325 Mg Tablet PO 1 tablet Q6H PRN Administration PAIN RATED 7-10 Pantoprazole Sodium 40 mg 10/15/25 09:00 10/19/25 08:53 Pantoprazole 40 Mg Tablet PO 40 mg QAM [facility] Administration Polyethylene Glycol 17 gm 10/15/25 09:00 10/19/25 08:53 Polyethylene Glycol 3350 17 Gm Powd.Pack PO Not Given QAM [facility] Potassium Chloride 20 meq 10/15/25 09:00 10/19/25 08:52 Potassium Chloride 20 Meq Er Tablet PO 20 meq DAILY [facility] Administration Pregabalin 100 mg 10/14/25 22:00 10/19/25 05:55 Pregabalin (*Crx) 50 Mg Capsule PO 100 mg Q8HR [facility] Administration Rivaroxaban 10 mg 10/15/25 09:00 10/19/25 08:53 Rivaroxaban 10 Mg Tablet PO 10 mg QAM [facility] Administration Senna/Docusate Sodium 2 tab 10/14/25 17:00 10/19/25 08:53 Senna/Docusate Sodium Tablet PO Not Given BID [facility] Labs Labs: Laboratory Results - last 24 hr 10/19/25 05:27 WBC 9.3 RBC 3.46 L Hgb 10.4 L Hct 32.2 L MCV 93.1 MCH 30.1 MCHC 32.3 RDW 16.4 H Plt Count 311 MPV 9.4 Immature Gran % (Auto) 0.3 Neut % (Auto) 52.8 Lymph % (Auto) 26.1 [place] % (Auto) 12.8 H Eos % (Auto) 7.5 H Baso % (Auto) 0.5 Lymph # (Auto) 2.42 [place] # (Auto) 1.2 H Eos # (Auto) 0.7 H Baso # (Auto) 0.1 Abs Immat Gran (auto) 0.03 Absolute Neuts (auto) 4.9 Absolute Nucleated RBC 0.000 Nucleated RBC % 0.0 Sodium 136 L Potassium 3.2 L Chloride 99 Carbon Dioxide 33 H Anion Gap 4 BUN 23 H Creatinine 0.87 Estim Creat Clear Calc 78 Estimated GFR > 60 Glucose 86 Calcium 8.0 L Total Bilirubin 0.5 AST 29 ALT 10 Alkaline Phosphatase 93 Total Protein 6.5 Albumin 2.9 L
== END 2025-10-19 11:30 | DRG 475 ==
LOC: ANH3MEDSUR 15:55
PROVIDERS: Physician Assistant; Admitting Provider Orthopaedic Surgery; PCP Family Medicine; Visit Provider Orthopaedic Surgery
PROC: 0Y6H0Z3 Detachment at Right Lower Leg, Low, Open Approach (ICD-10-PCS; CPT 27882; principal; 2025-10-14 12:00)
DX: M21.6X1 Other acquired deformities of right foot (principal); N17.9 Acute kidney failure, unspecified; G62.9 Polyneuropathy, unspecified; M21.6X2 Other acquired deformities of left foot; E03.9 Hypothyroidism, unspecified; J44.9 Chronic obstructive pulmonary disease, unspecified; M06.9 Rheumatoid arthritis, unspecified; E78.5 Hyperlipidemia, unspecified; I50.9 Heart failure, unspecified; N18.30 Chronic kidney disease, stage 3 unspecified; Z99.3 Dependence on wheelchair; Z86.718 Personal history of other venous thrombosis and embolism; Z87.891 Personal history of nicotine dependence; E66.9 Obesity, unspecified; Z68.31 Body mass index [BMI] 31.0-31.9, adult
CPT/HCPCS: 36415; 80048; 80053; 85025; 88307; 88311; 94640; 97110; 97162; 97167; 97530; 97535; J0690; A9270; C1713; J1100; J1885; J2003; J2270; J2405; J2704; J3010; J7030; J7120